=== PATIENT | male | born 1940 | race Caucasian/White ===

== ENCOUNTER 2017-11-25 16:02 | Emergency (ER) | payer OTHER, MEDICARE ==
[2017-11-25] MEDS ORDERED: Morphine 2 MG/ML Syringe IVPUSH ONE (16:23)
--- NOTE | 2017-11-25 16:30 | EDM.PDOC ---
ED HPI GENERAL MEDICAL PROBLEM - General Chief Complaint: Back Pain or Injury Stated Complaint: FELL ON ICE GETTING OUT OF WORK TRUCK Time Seen by Provider: 11/25/17 16:25 Source of Information: Reports: Patient History Limitations: Reports: No Limitations - History of Present Illness INITIAL COMMENTS - FREE TEXT/NARRATIVE: Patient is a 76-year-old male presents ED complaining of left sided back pain that radiates laterally. Patient has been shortness of breath associated since fall. Patient fell on the ice landing straight on his back. He has sensation that something is poking his lung. Cannot take a deep breath. There was no loss of consciousness. He denies any neck pain. He was able to get up on his own accord with minimal difficulties. He is on no anticoagulants. Denies hitting his head. Denies any complaints to his upper lower extremities. Back Pain Score (Numeric/FACES): 8 - Related Data Allergies Allergy/AdvReac Type Severity Reaction Status Date / Time No Known Allergies Allergy Verified 11/25/17 16:10 Home Meds: Home Meds Acetaminophen/HYDROcodone [[place] 325-5 MG] 1 tab PO Q6H PRN #15 tablet 11/25/17 [Rx] Aspirin [Halfprin] 162 mg PO DAILY 11/25/17 [History] Carvedilol 6.25 mg PO BID 11/25/17 [History] Enalapril [Vasotec] 5 mg PO BID 11/25/17 [History] Furosemide 40 mg PO DAILY 11/25/17 [History] Gabapentin [Neurontin] 600 mg PO BID 11/25/17 [History] Lisinopril 10 mg PO DAILY 11/25/17 [History] Lovastatin 40 mg PO DAILY 11/25/17 [History] [place]-3/DHA/Epa/Fish Oil [[place] 3 500 Softgel] 1,000 mg PO DAILY 11/25/17 [ History] Pioglitazone [Actos] 45 mg PO DAILY 11/25/17 [History] glyBURIDE [Glyburide] 5 mg PO BID 11/25/17 [History] metFORMIN [Glucophage XR] 750 mg PO DAILY 11/25/17 [History] Past Medical History Cardiovascular History: Reports: High Cholesterol, Hypertension Endocrine/Metabolic History: Reports: Diabetes, Type II - Past Surgical History Cardiovascular Surgical History: Reports: Carotid Endarterectomy Social & Family History - Tobacco Use Smoking Status *Q: Current Every Day Smoker Years of Tobacco use: 55 Packs/Tins Daily: 1 ED ROS GENERAL - Review of Systems Review Of Systems: ROS reveals no pertinent complaints other than HPI. ED EXAM, GENERAL - Physical Exam Exam: See Below Exam Limited By: No Limitations General Appearance: Alert, WD/WN, Moderate Distress Ears: Hearing Grossly Normal Nose: Normal Inspection Throat/Mouth: Normal Voice, No Airway Compromise Head: Atraumatic, Normocephalic Neck: Normal Inspection, Supple, Non-Tender, Full Range of Motion Respiratory/Chest: No Respiratory Distress, Lungs Clear, Normal Breath Sounds, No Accessory Muscle Use Cardiovascular: Normal Peripheral Pulses, Regular Rate, Rhythm Peripheral Pulses: 2+: Radial (L) Back Exam: Decreased Range of Motion, Other (Mild swelling noted to the left lateral aspect of the upper back along the 6 or 7 seventh rib. ). No: Paraspinal Tenderness, Vertebral Tenderness Extremities: Normal Inspection, Normal Range of Motion, Non-Tender Neurological: Alert, Oriented, CN II-XII Intact, Normal Cognition, No Motor/ Sensory Deficits Psychiatric: Normal Affect, Normal Mood Skin Exam: Warm, Dry, Intact, Normal Color Course - Vital Signs Last Recorded V/S: Last Vital Signs Temp 98.0 F 11/25/17 16:10 Pulse 60 11/25/17 16:10 Resp 20 11/25/17 16:10 BP 174/73 H 11/25/17 16:10 Pulse Ox 90 L 11/25/17 16:10 - Orders/Labs/Meds Meds: Medications Discontinued Medications Generic Name Dose Route Start Last Admin Trade Name Freq PRN Reason Stop Dose Admin Morphine Sulfate 4 mg 11/25/17 16:23 11/25/17 16:29 Morphine IVPUSH 11/25/17 16:24 4 mg ONETIME ONE Administration - Re-Assessments/Exams Free Text/Narrative Re-Assessment/Exam: Order peripheral IV with morphine 2 mg IVP. We'll obtain a CT of the chest without contrast. 11/25/17 17:30 CT of the Chest wo contrast impression; 5mm nodule within the right upper lung. Recommend repeat noncontrast chest CT in one year to confirm stability. Mild diffuse emphysematous change. Possible gallstone within the gallbladder. Nondisplaced fractures within at least the sixth and eighth left ribs. Reassessment, patients pain has improved. Will discharge patient home with instructions as documented. Departure - Departure Time of Disposition: 17:33 Disposition: Home, Self-Care 01 Condition: Good Clinical Impression: Pulmonary nodule, right Left rib fracture Qualifiers: Encounter type: initial encounter Rib fracture type: multiple ribs Fracture type: closed Qualified Code(s): S22.42XA - Multiple fractures of ribs, left side , initial encounter for closed fracture - Discharge Information Prescriptions: Acetaminophen/HYDROcodone [[place] 325-5 MG] 1 tab PO Q6H PRN #15 tablet PRN Reason: Pain (Severe 7-10) Instructions: Pain Medicine Instructions, [id number], Pulmonary Nodule, Easy- to-Read, Rib Fracture, [id number] Referrals: Riky Nelson Jr, MD [Primary Care Provider] - Forms: ED Department Discharge, ED Return to Work/School Form Additional Instructions: CT of the chest revealed 5mm nodule within the right upper lung. Recommend repeat noncontrast chest CT in one year to confirm stability. See pcp to have this completed. In addition you have nondisplaced fractures within at least the sixth and eighth left ribs. Treatment at this point will include symptomatic care including: tylenol and ibuprofen in alternating fashion for pain. Apply ice to the affected area 3 to 4 times daily, 20 minutes in duration , do not apply directly on the skin. In the next two days may alternate with warm compresses with ice application. Refrain from any activities that cause worsening pain. This will take approx. 6 wks to heal. Take norco 1 tab every 6 hours for severe pain. Do not take with tylenol. Followup with PCP this coming week for reevaluation. Return to the E.D. if you develop any new or worsening symptoms. Do not drive today since receiving a sedative medication. Do not drive while taking the norco.
--- NOTE | 2017-11-25 17:24 | CT ---
CT chest Technique: Multiple axial sections were obtained from above the lung apices inferiorly through the lung bases. Intravenous contrast was not utilized. Comparison: No previous study. Findings: Vague high density area is partially visualized on the lowermost cut within the gallbladder possibly due to calcified gallstone. Coronary artery calcification is seen. Atherosclerotic calcification is seen within the aorta and within branch vessels. Nondisplaced fractures are identified within the posterior sixth rib and eighth rib. Mild degenerative change is scattered throughout the spine. Mediastinum and hilar regions show no adenopathy or mass. No axillary adenopathy is seen. No pericardial thickening is seen. Mild emphysematous change is seen throughout the lungs. There is a small nodule identified within the right upper lung measuring 5 mm. Lungs otherwise are clear. Impression: 1. 5 mm nodule within the right upper lung. Recommend repeat noncontrast chest CT in one year to confirm stability. 2. Mild diffuse emphysematous change. 3. Possible gallstone within the gallbladder. 4. Nondisplaced fractures within at least the sixth and eighth left ribs. Diagnostic code #3
== END 2017-11-25 18:03 | disposition home or self-care (01) ==
LOC: JD.ED 16:02
DX: S22.42XA Multiple fractures of ribs, left side, initial encounter for closed fracture (principal); R91.1 Solitary pulmonary nodule; E78.00 Pure hypercholesterolemia, unspecified; I10 Essential (primary) hypertension; E11.9 Type 2 diabetes mellitus without complications; F17.210 Nicotine dependence, cigarettes, uncomplicated; Z79.82 Long term (current) use of aspirin; Z79.899 Other long term (current) drug therapy; W00.9XXA Unspecified fall due to ice and snow, initial encounter
CPT/HCPCS: 71250; 96374; 99284; J2270

== ENCOUNTER 2020-10-24 17:56 | Inpatient (IN) | payer MEDICARE, OTHER ==
[2020-10-24] MEDS ORDERED: Sodium Chloride 0.9% 10 ML Syringe FLUSH PRN (18:38)
--- NOTE | 2020-10-24 18:59 | EDM.PDOC ---
ED HPI GENERAL MEDICAL PROBLEM - General Chief Complaint: Respiratory Problem Stated Complaint: SOB Time Seen by Provider: 10/24/20 18:45 Source of Information: Reports: Patient, RN Notes Reviewed History Limitations: Reports: No Limitations - History of Present Illness INITIAL COMMENTS - FREE TEXT/NARRATIVE: Patient is a 79-year-old male who presents to the ED for the evaluation of his shortness of breath. Patient notes that his is COVID-19 positive, she was swabbed on Wednesday and was found to be positive yesterday. They both have been sick for the last 6 to 7 days. He is complaining of cough congestion, no appetite, fatigue, extreme shortness of breath with any sort of activity. Patient was a previous smoker, has been smoking for 50 years, roughly 1.5 packs/day. He recently quit 6 days ago, or shortly before he started feeling ill. Patient's primary care provider is Dr. Riky Nelson. Patient's O2 sats at time of triage were 85 to 86% on room air, he has a rather dusky appearance. Temperature is 99.4 F, respiratory rate of 32 breaths/min, blood pressure is 162/78, and his pulse is 78 bpm Generalized Pain Score (Numeric/FACES): 9 - Related Data Allergies Allergy/AdvReac Type Severity Reaction Status Date / Time No Known Allergies Allergy Verified 11/25/17 16:10 Home Meds: Home Meds Acetaminophen/HYDROcodone [[place] 325-5 MG] 1 tab PO Q6H PRN #15 tablet 11/25/17 [Rx] Aspirin [Halfprin] 162 mg PO DAILY 11/25/17 [History] Enalapril [Vasotec] 5 mg PO BID 11/25/17 [History] Furosemide 40 mg PO DAILY 11/25/17 [History] Gabapentin [Neurontin] 600 mg PO BID 11/25/17 [History] Lisinopril 10 mg PO DAILY 11/25/17 [History] Lovastatin 40 mg PO DAILY 11/25/17 [History] [place]-3/DHA/Epa/Fish Oil [[place] 3 500 Softgel] 1,000 mg PO DAILY 11/25/17 [History] Pioglitazone [Actos] 45 mg PO DAILY 11/25/17 [History] carvediloL [Carvedilol] 6.25 mg PO BID 11/25/17 [History] glyBURIDE [Glyburide] 5 mg PO BID 11/25/17 [History] metFORMIN [Glucophage XR] 750 mg PO DAILY 11/25/17 [History] Acetaminophen/HYDROcodone [[place] 325-5 MG] 1 tab PO Q4H PRN #20 tablet 05/08/18 [Rx] Past Medical History Cardiovascular History: Reports: High Cholesterol, Hypertension Musculoskeletal History: Reports: Arthritis Neurological History: Reports: None Endocrine/Metabolic History: Reports: Diabetes, Type II Other Endocrine/Metabolic History: on pills - Past Surgical History Cardiovascular Surgical History: Reports: Carotid Endarterectomy Social & Family History - Tobacco Use Tobacco Use Status *Q: Former Tobacco User Used Tobacco, but Quit: Yes Month/Year Tobacco Last Used: 6 days ago - Caffeine Use Caffeine Use: Reports: Coffee - Recreational Drug Use Recreational Drug Use: No ED ROS GENERAL - Review of Systems Review Of Systems: Comprehensive ROS is negative, except as noted in HPI. ED EXAM, GENERAL - Physical Exam Exam: See Below Exam Limited By: No Limitations General Appearance: Alert, WD/WN, Mild Distress (tachypneic and generalized dusky appearance.) Respiratory/Chest: No Respiratory Distress, Lungs Clear, Normal Breath Sounds, No Accessory Muscle Use, Chest Non-Tender Cardiovascular: Normal Peripheral Pulses, Regular Rate, Rhythm, No Edema Peripheral Pulses: 2+: Radial (L), Radial (R) GI/Abdominal: Normal Bowel Sounds, Soft, Non-Tender, No Distention, No Mass Extremities: Normal Inspection, Normal Capillary Refill Neurological: Alert, Oriented, Normal Cognition, No Motor/Sensory Deficits Psychiatric: Normal Affect, Normal Mood Skin Exam: Warm, Dry, Intact, No Rash, Cyanosis (Generalized dusky appearance) #1 Interpretation EKG Date: 10/24/20 Time: 18:32 Rhythm: NSR Rate (Beats/Min): 77 Jena: LAD-Left Jena Deviation (-98 ) P-Wave: Present QRS: RBBB ST-T: Normal QT: Prolonged (Moderately at 486) Comparison: NA - No Prior EKG EKG Interpretation Comments: No obvious ischemia or acute ST changes noted, reviewed by myself and Dr. Galvan. Course - Vital Signs Last Recorded V/S: Last Vital Signs Temp 99.4 F 10/24/20 18:25 Pulse 78 10/24/20 18:25 Resp 32 H 10/24/20 18:25 BP 162/78 H 10/24/20 18:25 Pulse Ox 86 L 10/24/20 18:25 - Orders/Labs/Meds Orders: Active Orders 24 hr Category Date Time Status EKG Documentation Completion [RC] STAT Care 10/24/20 18:39 Ordered Oxygen Therapy, ED [RC] ASDIRECTED Care 10/24/20 18:58 Ordered Peripheral IV Care [RC] . DIRECTED Care 10/24/20 18:40 Ordered RT Arterial Blood Gases, ABG [RC] Click to Edit Care 10/24/20 18:25 Active Chest 1V Frontal [CR] Stat Exams 10/24/20 18:38 Ordered CULTURE BLOOD [BC] Stat Lab 10/24/20 18:55 Ordered CULTURE BLOOD [BC] Stat Lab 10/24/20 18:55 Ordered Sodium Chloride 0.9% [Saline Flush] Med 10/24/20 18:38 Ordered 10 ml FLUSH ASDIRECTED PRN Blood Culture x2 Reflex Set [OM.PC] Stat Oth 10/24/20 18:55 Ordered Peripheral IV Insertion Adult [OM.PC] Routine Oth 10/24/20 18:38 Ordered Medication Orders Sodium Chloride (Saline Flush) 10 ml FLUSH ASDIRECTED PRN PRN Reason: Keep Vein Open Last Admin: 10/24/20 18:42 Dose: 10 ml Documented by: JADE Labs: Laboratory Tests 10/24/20 10/24/20 10/24/20 Range/Units 18:35 18:35 18:35 WBC 7.11 (4.23-9.07) K/mm3 RBC 5.36 (4.63-6.08) M/mm3 Hgb 16.7 (13.7-17.5) gm/dl Hct 48.9 (40.1-51.0) % MCV 91.2 (79.0-92.2) fl MCH 31.2 (25.7-32.2) pg MCHC 34.2 (32.2-35.5) g/dl RDW Std Deviation 50.1 H (35.1-43.9) fL Plt Count 120 L (163-337) K/mm3 MPV 10.4 (9.4-12.3) fl Neutrophils % (Manual) 62 H (40-60) % Band Neutrophils % 2 (0-10) % Lymphocytes % (Manual) 22 (20-40) % Atypical Lymphs % 0 % Monocytes % (Manual) 14 H (2-10) % Eosinophils % (Manual) 0 L (0.8-7.0) % Basophils % (Manual) 0 L (0.2-1.2) Platelet Estimate Decreased RBC Morph Comment Normal PT 10.6 (9.7-12.0) SECONDS INR 0.99 APTT 32.1 H (21.7-31.4) SECONDS D-Dimer, Quantitative 0.78 H (0.19-0.50) mg/L Puncture Site ABG pH (7.35-7.45) ABG pCO2 (35.0-45.0) mmHg ABG pO2 (80.0-100.0) mmHg ABG HCO3 (22.0-26.0) meq/L ABG O2 Saturation (96.0-97.0) % ABG Base Excess (-2-2.0) Simon Test O2 Delivery Device FiO2 (21.00-100.00) % Sodium (136-145) mEq/L Potassium (3.5-5.1) mEq/L Chloride (98-107) mEq/L Carbon Dioxide (21-32) mEq/L Anion Gap (5-15) BUN (7-18) mg/dL Creatinine (0.7-1.3) mg/dL Est Cr Clr Drug Dosing mL/min Estimated GFR (MDRD) (>60) mL/min BUN/Creatinine Ratio (14-18) Glucose (83-115) mg/dL Lactic Acid (0.4-2.0) mmol/L Calcium (8.5-10.1) mg/dL Magnesium (1.8-2.4) mg/dl Ferritin (26-388) ng/ml Total Bilirubin (0.2-1.0) mg/dL AST (15-37) U/L ALT (16-63) U/L Alkaline Phosphatase (46-116) U/L Lactate Dehydrogenase (85-227) U/L Troponin I (0.00-0.056) ng/mL C-Reactive Protein 5.8 H* (<1.0) mg/dL NT-Pro-B Natriuret Pep (0-450) pg/mL Total Protein (6.4-8.2) g/dl Albumin (3.4-5.0) g/dl Globulin gm/dL Albumin/Globulin Ratio (1-2) Influenza Type A RNA (NEGATIVE) Influenza Type B RNA (NEGATIVE) SARS-CoV-2 RNA (RADHA) (NEGATIVE) 10/24/20 10/24/20 10/24/20 Range/Units 18:35 18:35 18:35 WBC (4.23-9.07) K/mm3 RBC (4.63-6.08) M/mm3 Hgb (13.7-17.5) gm/dl Hct (40.1-51.0) % MCV (79.0-92.2) fl MCH (25.7-32.2) pg MCHC (32.2-35.5) g/dl RDW Std Deviation (35.1-43.9) fL Plt Count (163-337) K/mm3 MPV (9.4-12.3) fl Neutrophils % (Manual) (40-60) % Band Neutrophils % (0-10) % Lymphocytes % (Manual) (20-40) % Atypical Lymphs % % Monocytes % (Manual) (2-10) % Eosinophils % (Manual) (0.8-7.0) % Basophils % (Manual) (0.2-1.2) Platelet Estimate RBC Morph Comment PT (9.7-12.0) SECONDS INR APTT (21.7-31.4) SECONDS D-Dimer, Quantitative (0.19-0.50) mg/L Puncture Site ABG pH (7.35-7.45) ABG pCO2 (35.0-45.0) mmHg ABG pO2 (80.0-100.0) mmHg ABG HCO3 (22.0-26.0) meq/L ABG O2 Saturation (96.0-97.0) % ABG Base Excess (-2-2.0) Simon Test O2 Delivery Device FiO2 (21.00-100.00) % Sodium 132 L (136-145) mEq/L Potassium 4.3 (3.5-5.1) mEq/L Chloride 94 L (98-107) mEq/L Carbon Dioxide 28 (21-32) mEq/L Anion Gap 14.3 (5-15) BUN 28 H (7-18) mg/dL Creatinine 1.2 (0.7-1.3) mg/dL Est Cr Clr Drug Dosing 51.55 mL/min Estimated GFR (MDRD) 59 (>60) mL/min BUN/Creatinine Ratio 23.3 H (14-18) Glucose 188 H (83-115) mg/dL Lactic Acid (0.4-2.0) mmol/L Calcium 8.7 (8.5-10.1) mg/dL Magnesium 2.0 (1.8-2.4) mg/dl Ferritin 1447 H (26-388) ng/ml Total Bilirubin 0.9 (0.2-1.0) mg/dL AST 37 (15-37) U/L ALT 56 (16-63) U/L Alkaline Phosphatase 78 (46-116) U/L Lactate Dehydrogenase 289 H (85-227) U/L Troponin I 0.028 (0.00-0.056) ng/mL C-Reactive Protein (<1.0) mg/dL NT-Pro-B Natriuret Pep 623 H (0-450) pg/mL Total Protein 7.3 (6.4-8.2) g/dl Albumin 3.3 L (3.4-5.0) g/dl Globulin 4.0 gm/dL Albumin/Globulin Ratio 0.8 L (1-2) Influenza Type A RNA (NEGATIVE) Influenza Type B RNA (NEGATIVE) SARS-CoV-2 RNA (RADHA) (NEGATIVE) 10/24/20 10/24/20 10/24/20 Range/Units 18:35 18:40 18:45 WBC (4.23-9.07) K/mm3 RBC (4.63-6.08) M/mm3 Hgb (13.7-17.5) gm/dl Hct (40.1-51.0) % MCV (79.0-92.2) fl MCH (25.7-32.2) pg MCHC (32.2-35.5) g/dl RDW Std Deviation (35.1-43.9) fL Plt Count (163-337) K/mm3 MPV (9.4-12.3) fl Neutrophils % (Manual) (40-60) % Band Neutrophils % (0-10) % Lymphocytes % (Manual) (20-40) % Atypical Lymphs % % Monocytes % (Manual) (2-10) % Eosinophils % (Manual) (0.8-7.0) % Basophils % (Manual) (0.2-1.2) Platelet Estimate RBC Morph Comment PT (9.7-12.0) SECONDS INR APTT (21.7-31.4) SECONDS D-Dimer, Quantitative (0.19-0.50) mg/L Puncture Site Rt radial ABG pH 7.44 (7.35-7.45) ABG pCO2 38.2 (35.0-45.0) mmHg ABG pO2 46.0 L (80.0-100.0) mmHg ABG HCO3 25.6 (22.0-26.0) meq/L ABG O2 Saturation 83.1 L (96.0-97.0) % ABG Base Excess 2.1 H (-2-2.0) Simon Test Positive O2 Delivery Device Room air FiO2 0.00 L (21.00-100.00) % Sodium (136-145) mEq/L Potassium (3.5-5.1) mEq/L Chloride (98-107) mEq/L Carbon Dioxide (21-32) mEq/L Anion Gap (5-15) BUN (7-18) mg/dL Creatinine (0.7-1.3) mg/dL Est Cr Clr Drug Dosing mL/min Estimated GFR (MDRD) (>60) mL/min BUN/Creatinine Ratio (14-18) Glucose (83-115) mg/dL Lactic Acid 1.5 (0.4-2.0) mmol/L Calcium (8.5-10.1) mg/dL Magnesium (1.8-2.4) mg/dl Ferritin (26-388) ng/ml Total Bilirubin (0.2-1.0) mg/dL AST (15-37) U/L ALT (16-63) U/L Alkaline Phosphatase (46-116) U/L Lactate Dehydrogenase (85-227) U/L Troponin I (0.00-0.056) ng/mL C-Reactive Protein (<1.0) mg/dL NT-Pro-B Natriuret Pep (0-450) pg/mL Total Protein (6.4-8.2) g/dl Albumin (3.4-5.0) g/dl Globulin gm/dL Albumin/Globulin Ratio (1-2) Influenza Type A RNA Negative (NEGATIVE) Influenza Type B RNA Negative (NEGATIVE) SARS-CoV-2 RNA (RADHA) Positive H (NEGATIVE) Meds: Medications Generic Name Dose Route Start Last Admin Trade Name Frejacqueline PRN Reason Stop Dose Admin Sodium Chloride 10 ml 10/24/20 18:38 10/24/20 18:42 Saline Flush FLUSH 10 ml ASDIRECTED PRN Administration Keep Vein Open Discontinued Medications Generic Name Dose Route Start Last Admin Trade Name Ann Marie PRN Reason Stop Dose Admin Dexamethasone 6 mg 10/24/20 19:44 10/24/20 20:11 Decadron IVPUSH 10/24/20 19:45 6 mg ONETIME ONE Administration Remdesivir 200 mg/ Sodium 250 mls @ 250 mls/hr 10/24/20 19:44 10/24/20 20:13 Chloride IV 10/24/20 19:45 250 mls/hr ONETIME ONE Administration - Re-Assessments/Exams Free Text/Narrative Re-Assessment/Exam: 10/24/20 18:57 Patient presents to the ED for the evaluation of his ongoing shortness of breath. I do highly suspect he has COVID-19, as his was just recently diagnosed and he has many symptoms of this. We will get a multitude of labs, get blood gases, patient will be placed on oxygen after blood gases have been obtained. 10/24/20 20:21 The patient's PO2 was 45 on room air, 2 L by nasal cannula was placed immediately after the ABG was taken. Clinical suspicion again was high that patient did have COVID-19 and his swab did come back positive. Labs are all elevated as such to reflect positive Covid status. I was able to talk with Dr. Grier, and he does ultimately accept, and does recommend IV remdesivir and dexamethasone to be started. Departure - Departure Time of Disposition: 20:22 Disposition: Admitted As Inpatient 68 Condition: Fair Clinical Impression: COVID-19 - Discharge Information *PRESCRIPTION DRUG MONITORING PROGRAM REVIEWED*: No *COPY OF PRESCRIPTION DRUG MONITORING REPORT IN PATIENT BLANCA: No Referrals: Riky Nelson Jr, MD [Primary Care Provider] - Forms: ED Department Discharge Sepsis Event Note (ED) - Evaluation Sepsis Screening Result: No Definite Risk - Focused Exam Vital Signs: Vital Signs Temp Pulse Resp BP Pulse Ox 10/24/20 18:25 99.4 F 78 32 H 162/78 H 86 L - My Orders Last 24 Hours: My Active Orders 10/24/20 18:25 RT Arterial Blood Gases, ABG [RC] Click to Edit 10/24/20 18:38 Chest 1V Frontal [CR] Stat Sodium Chloride 0.9% [Saline Flush] 10 ml FLUSH ASDIRECTED PRN Peripheral IV Insertion Adult [OM.PC] Routine 10/24/20 18:39 EKG Documentation Completion [RC] STAT 10/24/20 18:40 Peripheral IV Care [RC] . DIRECTED 10/24/20 18:55 CULTURE BLOOD [BC] Stat CULTURE BLOOD [BC] Stat Blood Culture x2 Reflex Set [OM.PC] Stat 10/24/20 18:58 Oxygen Therapy, ED [RC] ASDIRECTED - Assessment/Plan Last 24 Hours: My Active Orders 10/24/20 18:25 RT Arterial Blood Gases, ABG [RC] Click to Edit 10/24/20 18:38 Chest 1V Frontal [CR] Stat Sodium Chloride 0.9% [Saline Flush] 10 ml FLUSH ASDIRECTED PRN Peripheral IV Insertion Adult [OM.PC] Routine 10/24/20 18:39 EKG Documentation Completion [RC] STAT 10/24/20 18:40 Peripheral IV Care [RC] . DIRECTED 10/24/20 18:55 CULTURE BLOOD [BC] Stat CULTURE BLOOD [BC] Stat Blood Culture x2 Reflex Set [OM.PC] Stat 10/24/20 18:58 Oxygen Therapy, ED [RC] ASDIRECTED
[2020-10-24] MEDS ORDERED: Dexamethasone 10 MG/ML SDV IVPUSH ONE (19:44)
[2020-10-24] MEDS ORDERED: REMDESIVIR 200 MG in Sodium Chloride 0.9% 250 ML IV ONE (19:44)
[2020-10-24 19:45] LABS: CORONAVIRUS COVID-19 NAA POSITIVE (NEGATIVE)
[2020-10-24] MEDS ORDERED: FLU Vacc QV2020-21(65YR UP)/PF 240 MCG/0.7 ML Syringe IM ONE (23:30)
[2020-10-24] MEDS ORDERED: Acetaminophen 325 MG Tab PO PRN (23:37)
[2020-10-24] MEDS ORDERED: Ondansetron 4 MG/2 ML SDV IV PRN (23:37)
[2020-10-24] MEDS ORDERED: oxyCODONE 5 MG Tab PO PRN (23:37)
[2020-10-25 06:40] LABS: VITAMIN D,25-HYDROXY 74.4 ng/ml (30.0-100.0)
--- NOTE | 2020-10-25 08:30 | PCM.HP.2 ---
H&P History of Present Illness - General Date of Service: 10/25/20 Admit Problem/Dx: Admission Diagnosis/Problem Admission Diagnosis/Problem Hypoxia Source of Information: Patient, Old Records, Provider, RN, RN Notes Reviewed History Limitations: Reports: No Limitations - History of Present Illness Initial Comments - Free Text/Narative: This is a 79-year-old male who presents to our ED on the evening of 10/24/2020 with shortness of breath. Patient notes that his was diagnosed as Covid positive on 10/23/2020, having been tested on 10/21/2020. Reports symptoms have been ongoing for 6 to 7 days and these include cough, congestion, anorexia, fatigue, extreme dyspnea on exertion. He is a 50 years 1.5 pack/day smoker and reports he quit 6 days prior to being seen in the emergency department before becoming ill. O2 sats during triage were noted to be 85 to 8 0% on room air and he looked somewhat dusky. Temperature was 99.4. Respiratory rate of 32 breaths/min blood pressure is 162/78 and pulse was 78 bpm. In the ED twelve-lead EKG was obtained showing a sinus rhythm at 77 bpm with left axis deviation and a right bundle branch block. QT was moderately prolonged at 486. No acute ST changes or ischemia noted. Labs are obtained showing no leukocytosis with a WBC of 7.11. Hemoglobin 16.4. Hematocrit 40.9. Platelets low at 120. Neutrophils elevated 62%. There is 2% bandemia. INR 0.99. APTT is 32.1. D-dimer is 0.78. CRP is 5.8. Sodium is low at 132. Potassium 4.3. Chloride 94. Carbon dioxide 28. Anion gap 14.3. BUN is high at 28. Creatinine 1.2. GFR is 59. Glucose is high at 188. Calcium 8.7. Magnesium 2.0. Ferritin is high at 1447. Total bilirubin 0.9. AST is 37, ALT 56, alkaline phosphatase 78. LDH is 289. Troponin 0 0.028. proBNP is 623. Protein 7.3. Albumin 3.3. Lactic acid is 1.5. ABGs obtained in the right radial with a pH of 7.44. PCO2 38.2. PO2 of 46.0. HCO3 of 25.6. O2 saturations are 83.1. Base excess is 2.1. This is obtained while on room air. Influenza a and B are both negative however SARS-CoV-2 RNA is positive. Patient is given a 6 mg IV push of Decadron and 20 mg of remdesivir. Chest x-ray is obtained showing a healing left-sided rib fracture and nothing acute. Placed on 2 L of oxygen. He carries a history of HLD, hypertension, arthritis, type II DM, carotid endarterectomy and tobacco use having quit 6 days prior. His PCP is Dr. Nelson. He subsequently admitted to the medical floor on telemetry for management of his COVID-19 infection and hyponatremia. Generalized Pain Score (Numeric/FACES): 0 - Related Data Allergies/Adverse Reactions: Allergies Allergy/AdvReac Type Severity Reaction Status Date / Time No Known Allergies Allergy Verified 11/25/17 16:10 Home Medications: Home Meds Enalapril [Vasotec] 5 mg PO DAILY 11/25/17 [History] Furosemide 40 mg PO DAILY 11/25/17 [History] Gabapentin [Neurontin] 600 mg PO BID 11/25/17 [History] Lovastatin 40 mg PO DAILY 11/25/17 [History] Pioglitazone [Actos] 45 mg PO DAILY 11/25/17 [History] carvediloL [Carvedilol] 6.25 mg PO BID 11/25/17 [History] glyBURIDE [Glyburide] 5 mg PO BID 11/25/17 [History] metFORMIN [Glucophage XR] 750 mg PO DAILY 11/25/17 [History] Acetaminophen/HYDROcodone [[place] 325-5 MG] 1 tab PO Q4H PRN #20 tablet 05/08/18 [Rx] Albuterol Sulfate [Proventil Hfa] 2 puff INH Q4HR PRN 10/25/20 [History] Albuterol/Ipratropium [Combivent Respimat] 1 puff INH QID 10/25/20 [History] Aspirin [Aspirin EC] 162 mg PO DAILY 10/25/20 [History] Oxybutynin 5 mg PO BID 10/25/20 [History] predniSONE 10 mg PO DAILY 10/25/20 [History] Past Medical History HEENT History: Reports: Impaired Vision, Other (See Below) Other HEENT History: pt wears reading glasses and wears a full set of dentures but does not have either of them here with him. Cardiovascular History: Reports: High Cholesterol, Hypertension Respiratory History: Reports: Other (See Below) Other Respiratory History: denies wearing oxygen at home or a cpap at night when asked. pt recently quit smokimg one week ago. Said he has a nebulizer machine at home but has not used in a long time. Genitourinary History: Reports: None Musculoskeletal History: Reports: Arthritis Neurological History: Reports: None Endocrine/Metabolic History: Reports: Diabetes, Type II Other Endocrine/Metabolic History: on oral medication and does not check his blood sugar at home, states he does not have a glucose monitor at home Do You Give Correction Boluses or Sliding Scale: No - Infectious Disease History Infectious Disease History: Reports: Novel Coronavirus - Past Surgical History HEENT Surgical History: Reports: None Cardiovascular Surgical History: Reports: Carotid Endarterectomy Respiratory Surgical History: Reports: None GI Surgical History: Reports: None Male Surgical History: Reports: Vasectomy Endocrine Surgical History: Reports: None Musculoskeletal Surgical History: Reports: None Social & Family History - Family History Family Medical History: No Pertinent Family History - Tobacco Use Tobacco Use Status *Q: Former Tobacco User Packs/Tins Daily: 1 Used Tobacco, but Quit: Yes Month/Year Tobacco Last Used: 10/17/20 Second Hand Smoke Exposure: No - Caffeine Use Caffeine Use: Reports: Coffee Other Caffeine Use: 2 cups per day - Recreational Drug Use Recreational Drug Use: No H&P Review of Systems - Review of Systems: Review Of Systems: See Below General: Reports: No Symptoms, Chills, Malaise, Weakness, Fatigue, Decreased Appetite. Denies: Fever HEENT: Reports: Sinus Congestion. Denies: Headaches, Sore Throat Pulmonary: Reports: Shortness of Breath, Cough. Denies: Wheezing, Sputum Cardiovascular: Reports: No Symptoms, Dyspnea on Exertion. Denies: Chest Pain, Palpitations, Orthopnea, Edema Gastrointestinal: Reports: No Symptoms. Denies: Abdominal Pain, Constipation, Diarrhea, Nausea, Vomiting Genitourinary: Reports: No Symptoms. Denies: Pain Musculoskeletal: Reports: No Symptoms Skin: Reports: No Symptoms Psychiatric: Reports: No Symptoms. Denies: Confusion Neurological: Reports: Weakness. Denies: Confusion, Numbness, Pre-Existing Deficit, Tingling, Difficulty Walking, Gait Disturbance Hematologic/Lymphatic: Reports: No Symptoms Immunologic: Reports: No Symptoms Exam - Exam Exam: See Below - Vital Signs Vital Signs: Last Vital Signs Temp 98.4 F 10/25/20 07:46 Pulse 54 L 10/25/20 07:46 Resp 16 10/25/20 07:46 BP 123/51 L 10/25/20 07:46 Pulse Ox 91 L 10/25/20 07:46 Weight: 170 lb - Exam Quality Assessment: Supplemental Oxygen (5L), DVT Prophylaxis. No: Urinary Catheter General: Alert, Oriented, Cooperative. No: Mild Distress HEENT: Conjunctiva Clear, EACs Clear, Mucosa Moist & [place], Posterior Pharynx Clear Neck: Supple, Trachea Midline Lungs: Clear to Auscultation, Normal Respiratory Effort, Decreased Breath Sounds Cardiovascular: Regular Rate, Regular Rhythm GI/Abdominal Exam: Normal Bowel Sounds, Soft, Non-Tender, No Distention (Male) Exam: Deferred Rectal (Males) Exam: Deferred Back Exam: Normal Inspection, Full Range of Motion Extremities: Normal Inspection, Normal Range of Motion, Non-Tender, No Pedal Edema, Normal Capillary Refill Skin: Warm, Dry, Intact Neurological: Cranial Nerves Intact (Grossly ) Neuro Extensive - Mental Status: Alert, Oriented x3 - Patient Data Lab Results Last 24 hrs: Laboratory Results - last 24 hr 10/24/20 10/24/20 10/24/20 Range/Units 18:35 18:35 18:35 WBC 7.11 (4.23-9.07) K/mm3 RBC 5.36 (4.63-6.08) M/mm3 Hgb 16.7 (13.7-17.5) gm/dl Hct 48.9 (40.1-51.0) % MCV 91.2 (79.0-92.2) fl MCH 31.2 (25.7-32.2) pg MCHC 34.2 (32.2-35.5) g/dl RDW Std Deviation 50.1 H (35.1-43.9) fL Plt Count 120 L (163-337) K/mm3 MPV 10.4 (9.4-12.3) fl Neut % (Auto) (34.0-67.9) % Lymph % (Auto) (21.8-53.1) % [place] % (Auto) (5.3-12.2) % Eos % (Auto) (0.8-7.0) Baso % (Auto) (0.1-1.2) % Neut # (Auto) (1.78-5.38) K/mm3 Lymph # (Auto) (1.32-3.57) K/mm3 [place] # (Auto) (0.30-0.82) K/mm3 Eos # (Auto) (0.04-0.54) K/mm3 Baso # (Auto) (0.01-0.08) K/mm3 Neutrophils % (Manual) 62 H (40-60) % Band Neutrophils % 2 (0-10) % Lymphocytes % (Manual) 22 (20-40) % Atypical Lymphs % 0 % Monocytes % (Manual) 14 H (2-10) % Eosinophils % (Manual) 0 L (0.8-7.0) % Basophils % (Manual) 0 L (0.2-1.2) Platelet Estimate Decreased RBC Morph Comment Normal PT 10.6 (9.7-12.0) SECONDS INR 0.99 APTT 32.1 H (21.7-31.4) SECONDS D-Dimer, Quantitative 0.78 H (0.19-0.50) mg/L Puncture Site ABG pH (7.35-7.45) ABG pCO2 (35.0-45.0) mmHg ABG pO2 (80.0-100.0) mmHg ABG HCO3 (22.0-26.0) meq/L ABG O2 Saturation (96.0-97.0) % ABG Base Excess (-2-2.0) Simon Test O2 Delivery Device FiO2 (21.00-100.00) % Sodium (136-145) mEq/L Potassium (3.5-5.1) mEq/L Chloride (98-107) mEq/L Carbon Dioxide (21-32) mEq/L Anion Gap (5-15) BUN (7-18) mg/dL Creatinine (0.7-1.3) mg/dL Est Cr Clr Drug Dosing mL/min Estimated GFR (MDRD) (>60) mL/min BUN/Creatinine Ratio (14-18) Glucose (83-115) mg/dL POC Glucose (83-110) mg/dL Lactic Acid (0.4-2.0) mmol/L Calcium (8.5-10.1) mg/dL Phosphorus (2.6-4.7) mg/dL Magnesium (1.8-2.4) mg/dl Ferritin (26-388) ng/ml Total Bilirubin (0.2-1.0) mg/dL AST (15-37) U/L ALT (16-63) U/L Alkaline Phosphatase (46-116) U/L Lactate Dehydrogenase (85-227) U/L Troponin I (0.00-0.056) ng/mL C-Reactive Protein 5.8 H* (<1.0) mg/dL NT-Pro-B Natriuret Pep (0-450) pg/mL Total Protein (6.4-8.2) g/dl Albumin (3.4-5.0) g/dl Globulin gm/dL Albumin/Globulin Ratio (1-2) Vitamin D 25-Hydroxy (30.0-100.0) ng/ml Influenza Type A RNA (NEGATIVE) Influenza Type B RNA (NEGATIVE) SARS-CoV-2 RNA (RADHA) (NEGATIVE) 10/24/20 10/24/20 10/24/20 Range/Units 18:35 18:35 18:35 WBC (4.23-9.07) K/mm3 RBC (4.63-6.08) M/mm3 Hgb (13.7-17.5) gm/dl Hct (40.1-51.0) % MCV (79.0-92.2) fl MCH (25.7-32.2) pg MCHC (32.2-35.5) g/dl RDW Std Deviation (35.1-43.9) fL Plt Count (163-337) K/mm3 MPV (9.4-12.3) fl Neut % (Auto) (34.0-67.9) % Lymph % (Auto) (21.8-53.1) % [place] % (Auto) (5.3-12.2) % Eos % (Auto) (0.8-7.0) Baso % (Auto) (0.1-1.2) % Neut # (Auto) (1.78-5.38) K/mm3 Lymph # (Auto) (1.32-3.57) K/mm3 [place] # (Auto) (0.30-0.82) K/mm3 Eos # (Auto) (0.04-0.54) K/mm3 Baso # (Auto) (0.01-0.08) K/mm3 Neutrophils % (Manual) (40-60) % Band Neutrophils % (0-10) % Lymphocytes % (Manual) (20-40) % Atypical Lymphs % % Monocytes % (Manual) (2-10) % Eosinophils % (Manual) (0.8-7.0) % Basophils % (Manual) (0.2-1.2) Platelet Estimate RBC Morph Comment PT (9.7-12.0) SECONDS INR APTT (21.7-31.4) SECONDS D-Dimer, Quantitative (0.19-0.50) mg/L Puncture Site ABG pH (7.35-7.45) ABG pCO2 (35.0-45.0) mmHg ABG pO2 (80.0-100.0) mmHg ABG HCO3 (22.0-26.0) meq/L ABG O2 Saturation (96.0-97.0) % ABG Base Excess (-2-2.0) Simon Test O2 Delivery Device FiO2 (21.00-100.00) % Sodium 132 L (136-145) mEq/L Potassium 4.3 (3.5-5.1) mEq/L Chloride 94 L (98-107) mEq/L Carbon Dioxide 28 (21-32) mEq/L Anion Gap 14.3 (5-15) BUN 28 H (7-18) mg/dL Creatinine 1.2 (0.7-1.3) mg/dL Est Cr Clr Drug Dosing 51.55 mL/min Estimated GFR (MDRD) 59 (>60) mL/min BUN/Creatinine Ratio 23.3 H (14-18) Glucose 188 H (83-115) mg/dL POC Glucose (83-110) mg/dL Lactic Acid (0.4-2.0) mmol/L Calcium 8.7 (8.5-10.1) mg/dL Phosphorus (2.6-4.7) mg/dL Magnesium 2.0 (1.8-2.4) mg/dl Ferritin 1447 H (26-388) ng/ml Total Bilirubin 0.9 (0.2-1.0) mg/dL AST 37 (15-37) U/L ALT 56 (16-63) U/L Alkaline Phosphatase 78 (46-116) U/L Lactate Dehydrogenase 289 H (85-227) U/L Troponin I 0.028 (0.00-0.056) ng/mL C-Reactive Protein (<1.0) mg/dL NT-Pro-B Natriuret Pep 623 H (0-450) pg/mL Total Protein 7.3 (6.4-8.2) g/dl Albumin 3.3 L (3.4-5.0) g/dl Globulin 4.0 gm/dL Albumin/Globulin Ratio 0.8 L (1-2) Vitamin D 25-Hydroxy (30.0-100.0) ng/ml Influenza Type A RNA (NEGATIVE) Influenza Type B RNA (NEGATIVE) SARS-CoV-2 RNA (RADHA) (NEGATIVE) 10/24/20 10/24/20 10/24/20 Range/Units 18:35 18:40 18:45 WBC (4.23-9.07) K/mm3 RBC (4.63-6.08) M/mm3 Hgb (13.7-17.5) gm/dl Hct (40.1-51.0) % MCV (79.0-92.2) fl MCH (25.7-32.2) pg MCHC (32.2-35.5) g/dl RDW Std Deviation (35.1-43.9) fL Plt Count (163-337) K/mm3 MPV (9.4-12.3) fl Neut % (Auto) (34.0-67.9) % Lymph % (Auto) (21.8-53.1) % [place] % (Auto) (5.3-12.2) % Eos % (Auto) (0.8-7.0) Baso % (Auto) (0.1-1.2) % Neut # (Auto) (1.78-5.38) K/mm3 Lymph # (Auto) (1.32-3.57) K/mm3 [place] # (Auto) (0.30-0.82) K/mm3 Eos # (Auto) (0.04-0.54) K/mm3 Baso # (Auto) (0.01-0.08) K/mm3 Neutrophils % (Manual) (40-60) % Band Neutrophils % (0-10) % Lymphocytes % (Manual) (20-40) % Atypical Lymphs % % Monocytes % (Manual) (2-10) % Eosinophils % (Manual) (0.8-7.0) % Basophils % (Manual) (0.2-1.2) Platelet Estimate RBC Morph Comment PT (9.7-12.0) SECONDS INR APTT (21.7-31.4) SECONDS D-Dimer, Quantitative (0.19-0.50) mg/L Puncture Site Rt radial ABG pH 7.44 (7.35-7.45) ABG pCO2 38.2 (35.0-45.0) mmHg ABG pO2 46.0 L (80.0-100.0) mmHg ABG HCO3 25.6 (22.0-26.0) meq/L ABG O2 Saturation 83.1 L (96.0-97.0) % ABG Base Excess 2.1 H (-2-2.0) Simon Test Positive O2 Delivery Device Room air FiO2 0.00 L (21.00-100.00) % Sodium (136-145) mEq/L Potassium (3.5-5.1) mEq/L Chloride (98-107) mEq/L Carbon Dioxide (21-32) mEq/L Anion Gap (5-15) BUN (7-18) mg/dL Creatinine (0.7-1.3) mg/dL Est Cr Clr Drug Dosing mL/min Estimated GFR (MDRD) (>60) mL/min BUN/Creatinine Ratio (14-18) Glucose (83-115) mg/dL POC Glucose (83-110) mg/dL Lactic Acid 1.5 (0.4-2.0) mmol/L Calcium (8.5-10.1) mg/dL Phosphorus (2.6-4.7) mg/dL Magnesium (1.8-2.4) mg/dl Ferritin (26-388) ng/ml Total Bilirubin (0.2-1.0) mg/dL AST (15-37) U/L ALT (16-63) U/L Alkaline Phosphatase (46-116) U/L Lactate Dehydrogenase (85-227) U/L Troponin I (0.00-0.056) ng/mL C-Reactive Protein (<1.0) mg/dL NT-Pro-B Natriuret Pep (0-450) pg/mL Total Protein (6.4-8.2) g/dl Albumin (3.4-5.0) g/dl Globulin gm/dL Albumin/Globulin Ratio (1-2) Vitamin D 25-Hydroxy (30.0-100.0) ng/ml Influenza Type A RNA Negative (NEGATIVE) Influenza Type B RNA Negative (NEGATIVE) SARS-CoV-2 RNA (RADHA) Positive H (NEGATIVE) 10/24/20 10/25/20 10/25/20 Range/Units 22:43 04:59 04:59 WBC 5.10 (4.23-9.07) K/mm3 RBC 4.85 (4.63-6.08) M/mm3 Hgb 15.1 D (13.7-17.5) gm/dl Hct 44.2 (40.1-51.0) % MCV 91.1 (79.0-92.2) fl MCH 31.1 (25.7-32.2) pg MCHC 34.2 (32.2-35.5) g/dl RDW Std Deviation 49.3 H (35.1-43.9) fL Plt Count 131 L (163-337) K/mm3 MPV 10.8 (9.4-12.3) fl Neut % (Auto) 74.9 H (34.0-67.9) % Lymph % (Auto) 14.3 L (21.8-53.1) % [place] % (Auto) 9.6 (5.3-12.2) % Eos % (Auto) 0.2 L (0.8-7.0) Baso % (Auto) 0.2 (0.1-1.2) % Neut # (Auto) 3.82 (1.78-5.38) K/mm3 Lymph # (Auto) 0.73 L (1.32-3.57) K/mm3 [place] # (Auto) 0.49 (0.30-0.82) K/mm3 Eos # (Auto) 0.01 L (0.04-0.54) K/mm3 Baso # (Auto) 0.01 (0.01-0.08) K/mm3 Neutrophils % (Manual) (40-60) % Band Neutrophils % (0-10) % Lymphocytes % (Manual) (20-40) % Atypical Lymphs % % Monocytes % (Manual) (2-10) % Eosinophils % (Manual) (0.8-7.0) % Basophils % (Manual) (0.2-1.2) Platelet Estimate RBC Morph Comment PT (9.7-12.0) SECONDS INR APTT (21.7-31.4) SECONDS D-Dimer, Quantitative 0.57 H (0.19-0.50) mg/L Puncture Site ABG pH (7.35-7.45) ABG pCO2 (35.0-45.0) mmHg ABG pO2 (80.0-100.0) mmHg ABG HCO3 (22.0-26.0) meq/L ABG O2 Saturation (96.0-97.0) % ABG Base Excess (-2-2.0) Simon Test O2 Delivery Device FiO2 (21.00-100.00) % Sodium (136-145) mEq/L Potassium (3.5-5.1) mEq/L Chloride (98-107) mEq/L Carbon Dioxide (21-32) mEq/L Anion Gap (5-15) BUN (7-18) mg/dL Creatinine (0.7-1.3) mg/dL Est Cr Clr Drug Dosing mL/min Estimated GFR (MDRD) (>60) mL/min BUN/Creatinine Ratio (14-18) Glucose (83-115) mg/dL POC Glucose 285 H (83-110) mg/dL Lactic Acid (0.4-2.0) mmol/L Calcium (8.5-10.1) mg/dL Phosphorus (2.6-4.7) mg/dL Magnesium (1.8-2.4) mg/dl Ferritin (26-388) ng/ml Total Bilirubin (0.2-1.0) mg/dL AST (15-37) U/L ALT (16-63) U/L Alkaline Phosphatase (46-116) U/L Lactate Dehydrogenase (85-227) U/L Troponin I (0.00-0.056) ng/mL C-Reactive Protein (<1.0) mg/dL NT-Pro-B Natriuret Pep (0-450) pg/mL Total Protein (6.4-8.2) g/dl Albumin (3.4-5.0) g/dl Globulin gm/dL Albumin/Globulin Ratio (1-2) Vitamin D 25-Hydroxy (30.0-100.0) ng/ml Influenza Type A RNA (NEGATIVE) Influenza Type B RNA (NEGATIVE) SARS-CoV-2 RNA (RADHA) (NEGATIVE) 10/25/20 10/25/20 Range/Units 04:59 06:05 WBC (4.23-9.07) K/mm3 RBC (4.63-6.08) M/mm3 Hgb (13.7-17.5) gm/dl Hct (40.1-51.0) % MCV (79.0-92.2) fl MCH (25.7-32.2) pg MCHC (32.2-35.5) g/dl RDW Std Deviation (35.1-43.9) fL Plt Count (163-337) K/mm3 MPV (9.4-12.3) fl Neut % (Auto) (34.0-67.9) % Lymph % (Auto) (21.8-53.1) % [place] % (Auto) (5.3-12.2) % Eos % (Auto) (0.8-7.0) Baso % (Auto) (0.1-1.2) % Neut # (Auto) (1.78-5.38) K/mm3 Lymph # (Auto) (1.32-3.57) K/mm3 [place] # (Auto) (0.30-0.82) K/mm3 Eos # (Auto) (0.04-0.54) K/mm3 Baso # (Auto) (0.01-0.08) K/mm3 Neutrophils % (Manual) (40-60) % Band Neutrophils % (0-10) % Lymphocytes % (Manual) (20-40) % Atypical Lymphs % % Monocytes % (Manual) (2-10) % Eosinophils % (Manual) (0.8-7.0) % Basophils % (Manual) (0.2-1.2) Platelet Estimate RBC Morph Comment PT (9.7-12.0) SECONDS INR APTT (21.7-31.4) SECONDS D-Dimer, Quantitative (0.19-0.50) mg/L Puncture Site ABG pH (7.35-7.45) ABG pCO2 (35.0-45.0) mmHg ABG pO2 (80.0-100.0) mmHg ABG HCO3 (22.0-26.0) meq/L ABG O2 Saturation (96.0-97.0) % ABG Base Excess (-2-2.0) Simon Test O2 Delivery Device FiO2 (21.00-100.00) % Sodium 130 L (136-145) mEq/L Potassium 4.1 (3.5-5.1) mEq/L Chloride 96 L (98-107) mEq/L Carbon Dioxide 25 (21-32) mEq/L Anion Gap 13.1 (5-15) BUN 28 H (7-18) mg/dL Creatinine 1.0 (0.7-1.3) mg/dL Est Cr Clr Drug Dosing 61.86 mL/min Estimated GFR (MDRD) > 60 (>60) mL/min BUN/Creatinine Ratio 28.0 H (14-18) Glucose 280 H (83-115) mg/dL POC Glucose 258 H (83-110) mg/dL Lactic Acid (0.4-2.0) mmol/L Calcium 8.2 L (8.5-10.1) mg/dL Phosphorus 3.1 (2.6-4.7) mg/dL Magnesium 2.1 (1.8-2.4) mg/dl Ferritin (26-388) ng/ml Total Bilirubin 0.5 (0.2-1.0) mg/dL AST 30 (15-37) U/L ALT 48 (16-63) U/L Alkaline Phosphatase 63 (46-116) U/L Lactate Dehydrogenase (85-227) U/L Troponin I (0.00-0.056) ng/mL C-Reactive Protein 6.0 H* (<1.0) mg/dL NT-Pro-B Natriuret Pep (0-450) pg/mL Total Protein 6.1 L (6.4-8.2) g/dl Albumin 2.8 L (3.4-5.0) g/dl Globulin 3.3 gm/dL Albumin/Globulin Ratio 0.9 L (1-2) Vitamin D 25-Hydroxy 74.4 (30.0-100.0) ng/ml Influenza Type A RNA (NEGATIVE) Influenza Type B RNA (NEGATIVE) SARS-CoV-2 RNA (RADHA) (NEGATIVE) Result Diagrams: 10/25/20 04:59 10/25/20 04:59 Sepsis Event Note - Evaluation Sepsis Screening Result: No Definite Risk - Focused Exam Vital Signs: Vital Signs Temp Pulse Pulse Resp BP BP Pulse Ox 10/25/20 07:46 98.4 F 54 L 16 123/51 L 91 L 10/25/20 06:23 10/25/20 03:21 98.1 F 72 16 142/77 H 91 L 10/24/20 23:58 99.0 F 72 18 146/100 H 93 L 10/24/20 23:46 10/24/20 23:32 80 89 L 10/24/20 21:54 98.2 F 73 28 H 150/73 H 92 L 10/24/20 20:45 74 20 119/60 92 L Pulse Ox 10/25/20 07:46 10/25/20 06:23 92 L 10/25/20 03:21 10/24/20 23:58 10/24/20 23:46 92 L 10/24/20 23:32 10/24/20 21:54 10/24/20 20:45 - Problem List (1) COVID-19 SNOMED Code(s): 322513076 ICD Code: U07.1 - COVID-19 Status: Acute Priority: High Current Visit: Yes (2) Hypoxia SNOMED Code(s): 841207610 ICD Code: R09.02 - HYPOXEMIA Status: Acute Priority: High Current Visit: Yes (3) HLD (hyperlipidemia) SNOMED Code(s): 38893277 ICD Code: E78.5 - HYPERLIPIDEMIA, UNSPECIFIED Status: Chronic Priority: Low Current Visit: No (4) HTN (hypertension) SNOMED Code(s): 52016953 ICD Code: I10 - ESSENTIAL (PRIMARY) HYPERTENSION Status: Chronic Priority: Medium Current Visit: No Qualifiers: Hypertension type: unspecified Qualified Code(s): I10 - Essential (primary) hypertension (5) Arthritis SNOMED Code(s): 0364679 ICD Code: M19.90 - UNSPECIFIED OSTEOARTHRITIS, UNSPECIFIED SITE Status: Chronic Priority: Low Current Visit: No (6) Type II diabetes mellitus SNOMED Code(s): 25264002 ICD Code: E11.9 - TYPE 2 DIABETES MELLITUS WITHOUT COMPLICATIONS Status: Chronic Priority: Medium Current Visit: Yes Qualifiers: Diabetes mellitus terminal manager insulin use: without jail use Diabetes mellitus complication status: with other specified complication Qualified Code(s): E11.69 - Type 2 diabetes mellitus with other specified complication (7) Smoker SNOMED Code(s): 33792075 ICD Code: F17.200 - NICOTINE DEPENDENCE, UNSPECIFIED, UNCOMPLICATED Status: Chronic Priority: Medium Current Visit: Yes Problem List Initiated/Reviewed/Updated: Yes Orders Last 24hrs: Active Orders 24 hr Category Date Time Status Admission Status [Patient Status] [ADT] Routine ADT 10/24/20 21:05 Active Blood Glucose Check, Bedside [RC] ONETIME Care 10/24/20 23:00 Active Cardiac Monitoring [RC] . DIRECTED Care 10/24/20 23:37 Active Influenza Vaccine Charge [RC] .DISCHARGE Care 10/24/20 23:08 Active Oxygen Therapy [RC] PRN Care 10/24/20 23:37 Active RT Incentive Spirometry [RC] ASDIRECTED Care 10/24/20 23:37 Active Up With Assistance [RC] ASDIRECTED Care 10/24/20 23:37 Active VTE/DVT Education [RC] PER UNIT ROUTINE Care 10/24/20 23:37 Active Vital Signs [RC] Q4HR Care 10/24/20 23:37 Active Regular Diet [DIET] Diet 10/25/20 Breakfast Active Chest 1V Frontal [CR] Stat Exams 10/24/20 18:38 Taken CULTURE BLOOD [BC] Stat Lab 10/24/20 19:25 Received CULTURE BLOOD [BC] Stat Lab 10/24/20 19:30 Received Acetaminophen [TylenoL] Med 10/24/20 23:37 Active 650 mg PO Q4H PRN Cholecalciferol (Vitamin D3) [Vitamin D3] Med 10/25/20 09:00 Active 5,000 unit PO DAILY Enoxaparin [Lovenox] Med 10/25/20 09:00 Active 40 mg SUBCUT DAILY Famotidine [Pepcid] Med 10/25/20 09:00 Active 20 mg PO BID Ondansetron [Zofran] Med 10/24/20 23:37 Active 4 mg IV Q4H PRN Remdesivir 100 mg Med 10/25/20 21:00 Active Sodium Chloride 0.9% [Normal Saline] 100 ml IV Q24H Sodium Chloride 0.9% [Saline Flush] Med 10/24/20 18:38 Active 10 ml FLUSH ASDIRECTED PRN Zinc Sulfate [Zincate] Med 10/25/20 09:00 Active 220 mg PO DAILY dexAMETHasone Med 10/25/20 09:00 Active 6 mg PO DAILY oxyCODONE Med 10/24/20 23:37 Active 5 mg PO Q4H PRN Blood Culture x2 Reflex Set [OM.PC] Stat Ot 10/24/20 18:55 Ordered Isolation [COMM] Stat Ot 10/24/20 23:37 Ordered Peripheral IV Insertion Adult [OM.PC] Routine Oth 10/24/20 18:38 Ordered Resuscitation Status Routine Resus Stat 10/24/20 23:37 Ordered Medication Orders Acetaminophen (Tylenol) 650 mg PO Q4H PRN PRN Reason: Pain (Mild 1-3)/fever Cholecalciferol (Vitamin D3) 5,000 unit PO DAILY [facility] Dexamethasone (Dexamethasone) 6 mg PO DAILY [facility] Stop: 11/02/20 09:01 Enoxaparin Sodium (Lovenox) 40 mg SUBCUT DAILY [facility] Famotidine (Pepcid) 20 mg PO BID [facility] Remdesivir 100 mg/ Sodium (Chloride) 100 mls @ 100 mls/hr IV Q24H [facility] Stop: 10/28/20 21:59 Ondansetron HCl (Zofran) 4 mg IV Q4H PRN PRN Reason: Nausea/Vomiting Oxycodone HCl (Oxycodone) 5 mg PO Q4H PRN PRN Reason: Pain (moderate 4-6) Sodium Chloride (Saline Flush) 10 ml FLUSH ASDIRECTED PRN PRN Reason: Keep Vein Open Last Admin: 10/24/20 18:42 Dose: 10 ml Documented by: JADE Zinc Sulfate (Zincate) 220 mg PO DAILY [facility] Assessment/Plan Comment:: Assessment - day of admission 10/24/20 (admitted overnight 10/23/20) * 79 yo male presents to our ED on 10/24/20 with SOB * was COVID positive - swabbed Wednesday and returned positive on 10/23/19 * Symptoms for 6-7 days before arrival at ED * 50 year smoker - 1.5 packs/day; Quit 6 days before admission * Saturations of 85-86% on room air in ED * Hx/o HLD, HTN, Arthritis, Type II DM, S/P Carotid Endarterectomy * 12-Lead EKG in ED shows NSR at 77BPM with LAD, RBBB, Moderately prolonged QTc, No ST changes * Labs: * WBC 7.11-->5.10 * Hgb 16.7-->15.1 * Platelet 120-->131 * Neutrophils 62%-->74.9% * Band neutrophils 2% * INR 0.99 * APTT 32.1 * D-Dimer 0.78 * CRP 5.8 * Sodium 132-->130 * Potassium 4.3-->4.1 * Chloride 94-->96 * Anion gap 14.3-->13.1 * BUN 28-->28 * Creatinine 1.2-->1.0 * GFR 59--> Greater than 60 * Glucose 188-->280 * Magnesium 2.0 * Ferritin 1477 * Total Bilirubin 0.8-->0.5 * AST 37-->30 * ALT 59-->48 * Alk phos 78-->63 * Troponin 0.028 * CRP 5.8-->6.0 * Pro-BNP 623 * Albumin 3.3-->2.8 * Lactic Acid 1.5 * Influenza A/B negative * SARS-CoV-2 RNA positive * Vitamin D 74.4 * ABG: Rt. Radial, pH 7.44, pCO2 38.2, pO2 46.0, HCO3 25.6, O2 saturation 83.1, Base excess 2.1 * CXR shows healing left sided rib fracture, nothing acute * Given 6mg dexamethasone and started on 200mg Remdesivir in ED PLAN: COVID-19 Hypoxia * Continue dexamethasone 6mg - Day 2/10 * Continue Remdesivir 200mg - Day 2/10 * IS/Acapella * RT consultation * PT/OT * CM/SW consult * O2 as needed - goal saturations 87-94% * Lovenox 40mg daily * Supplement zinc * Supplement vitamin D * Blood cultures pending * Telemetry/continuous pulse oximeter * Airborne/Contact precautions * Monitor D-Dimer Q48 hr * Follow labs Hyponatremia Hypoalbuminemia * Avoid IV fluids due to COVID-19 * Sodium chloride tabs * Director Of Occupational Therapy consultation Type II diabetes mellitus * Hold PO medications * Obtain A1C * Blood glucose checks QID AC and Bedtime * Medium intensity sliding scale insulin * Diabetic diet Smoker * Nicotine patches * Cessation counseling * Offer nicotine patches on discharge HLD (hyperlipidemia) HTN (hypertension) Arthritis * Reconcile/review home medications when available * Monitor labs/vital signs Code status: Full Code PCP: Dr. Nelson DVT Prophylaxis: Lovenox Social: Patient lives with his who is also COVID-19 positive Disposition: Patient admitted for treatment of COVID-19 and hypoxia. - Mortality Measure Prognosis:: Good
--- NOTE | 2020-10-25 08:50 | CR ---
Chest: Portable view of the chest was obtained. Comparison: Prior chest x-ray on 05/08/[address] study of 11/25/17. Areas of increased density within the left chest correlating to healing left-sided rib fractures. Lungs otherwise are clear with no acute parenchymal change. Heart size and mediastinum are normal. Scattered degenerative endplate spurring is noted within the spine. Impression: 1. Healing left-sided rib fractures causing increased density. 2. Nothing acute is otherwise appreciated. Diagnostic code #2
[2020-10-25] MEDS: Enoxaparin 40 MG/0.4 ML Syringe SUBCUT SCH (09:44)
[2020-10-25] MEDS: Famotidine 20 MG Tab PO SCH ×2 (09:45→22:01)
[2020-10-25] MEDS ORDERED: Nicotine 14 MG/24 Hr Patch TRDERM SCH (09:45)
[2020-10-25] MEDS: Zinc Sulfate 220 MG Cap PO SCH (09:45)
[2020-10-25] MEDS: Dexamethasone 4 MG Tab PO SCH (09:45)
[2020-10-25] MEDS: Cholecalciferol (Vitamin D3) 5,000 UNIT Cap PO SCH (09:45)
[2020-10-25] MEDS: Insulin Glarg,Human.Rec.Analog 100 Unit/ML SUBCUT SCH (09:56)
[2020-10-25] MEDS: Nicotine 21 MG/24 Hr Patch TRDERM SCH (09:56)
[2020-10-25 10:09] LABS: HEMOGLOBIN A1C 8.9 %
[2020-10-25] MEDS ORDERED: Albuterol 6.7 GM Inhaler INH PRN (10:23)
[2020-10-25] MEDS: Sodium Chloride 1 GM Tab PO SCH ×2 (10:56→22:02)
[2020-10-25] MEDS: Carvedilol 6.25 MG Tab PO SCH ×2 (10:56→17:35)
[2020-10-25] MEDS: Aspirin 81 MG Tab.EC PO SCH (10:56)
[2020-10-25] MEDS: Gabapentin 600 MG Tab PO SCH ×2 (11:00→22:01)
[2020-10-25] MEDS ORDERED: Enalapril 5 MG Tab PO SCH (11:00)
[2020-10-25] MEDS: Oxybutynin 5 MG Tab PO SCH ×2 (11:00→22:01)
[2020-10-25] MEDS: Furosemide 40 MG Tab PO SCH (11:00)
[2020-10-25] MEDS: Albuterol/Ipratropium 3.0-0.5 MG/3 ML Neb Soln INH SCH ×3 (12:50→21:11)
[2020-10-25] MEDS: REMDESIVIR 100 MG in Sodium Chloride 0.9% 100 ML IV SCH (22:03)
[2020-10-26] MEDS: Albuterol/Ipratropium 3.0-0.5 MG/3 ML Neb Soln INH SCH ×4 (08:12→20:28)
[2020-10-26] MEDS: Famotidine 20 MG Tab PO SCH ×2 (08:23→21:44)
[2020-10-26] MEDS: Aspirin 81 MG Tab.EC PO SCH (08:24)
[2020-10-26] MEDS: Dexamethasone 4 MG Tab PO SCH (08:25)
[2020-10-26] MEDS: Oxybutynin 5 MG Tab PO SCH ×2 (08:26→21:45)
[2020-10-26] MEDS: Gabapentin 600 MG Tab PO SCH ×2 (08:27→21:44)
[2020-10-26] MEDS: Cholecalciferol (Vitamin D3) 5,000 UNIT Cap PO SCH (08:27)
[2020-10-26] MEDS: Zinc Sulfate 220 MG Cap PO SCH (08:28)
[2020-10-26] MEDS: Sodium Chloride 1 GM Tab PO SCH (08:28)
[2020-10-26] MEDS: Furosemide 40 MG Tab PO SCH (08:29)
[2020-10-26] MEDS: Simvastatin 20 MG Tab PO SCH (08:29)
[2020-10-26] MEDS: Insulin Glarg,Human.Rec.Analog 100 Unit/ML SUBCUT SCH (08:30)
[2020-10-26] MEDS: Enoxaparin 40 MG/0.4 ML Syringe SUBCUT SCH (08:30)
[2020-10-26] MEDS: Nicotine 21 MG/24 Hr Patch TRDERM SCH (08:34)
[2020-10-26] MEDS: Carvedilol 3.125 MG Tab PO SCH ×2 (09:21→21:45)
[2020-10-26] MEDS: Carvedilol 6.25 MG Tab PO SCH (09:24)
--- NOTE | 2020-10-26 16:10 | PCM.PN ---
- General Info Date of Service: 10/26/20 Admission Dx/Problem (Free Text): Admission Diagnosis/Problem Admission Diagnosis/Problem Hypoxia Subjective Update: Patient seems to be getting better today. He is on a little less oxygen than at his max yesterday. Appetite is only marginal with one meal 25% and another at 100%. Functional Status: Reports: Pain Controlled - Review of Systems General: Reports: No Symptoms HEENT: Reports: No Symptoms Pulmonary: Reports: Shortness of Breath Cardiovascular: Reports: No Symptoms Musculoskeletal: Reports: No Symptoms - Patient Data Vitals - Most Recent: Last Vital Signs Temp 98.2 F 10/26/20 08:22 Pulse 57 L 10/26/20 09:21 Resp 24 H 10/26/20 08:22 BP 118/45 L 10/26/20 09:21 Pulse Ox 92 L 10/26/20 12:34 Weight - Most Recent: 170 lb 8 oz I&O - Last 24 Hours: Intake & Output 10/26/20 10/26/20 10/26/20 06:59 14:59 22:59 Intake Total 500 240 Balance 500 240 Lab Results Last 24 Hours: Laboratory Results - last 24 hr 10/25/20 10/25/20 10/26/20 Range/Units 17:07 22:00 04:49 WBC 7.23 (4.23-9.07) K/mm3 RBC 4.68 (4.63-6.08) M/mm3 Hgb 14.5 (13.7-17.5) gm/dl Hct 42.9 (40.1-51.0) % MCV 91.7 (79.0-92.2) fl MCH 31.0 (25.7-32.2) pg MCHC 33.8 (32.2-35.5) g/dl RDW Std Deviation 49.1 H (35.1-43.9) fL Plt Count 130 L (163-337) K/mm3 MPV 11.0 (9.4-12.3) fl Neut % (Auto) 66.7 (34.0-67.9) % Lymph % (Auto) 21.0 L (21.8-53.1) % [place] % (Auto) 11.1 (5.3-12.2) % Eos % (Auto) 0.3 L (0.8-7.0) Baso % (Auto) 0.3 (0.1-1.2) % Neut # (Auto) 4.83 (1.78-5.38) K/mm3 Lymph # (Auto) 1.52 (1.32-3.57) K/mm3 [place] # (Auto) 0.80 (0.30-0.82) K/mm3 Eos # (Auto) 0.02 L (0.04-0.54) K/mm3 Baso # (Auto) 0.02 (0.01-0.08) K/mm3 Sodium (136-145) mEq/L Potassium (3.5-5.1) mEq/L Chloride (98-107) mEq/L Carbon Dioxide (21-32) mEq/L Anion Gap (5-15) BUN (7-18) mg/dL Creatinine (0.7-1.3) mg/dL Est Cr Clr Drug Dosing mL/min Estimated GFR (MDRD) (>60) mL/min BUN/Creatinine Ratio (14-18) Glucose (83-115) mg/dL POC Glucose 174 H 233 H (83-110) mg/dL Calcium (8.5-10.1) mg/dL Phosphorus (2.6-4.7) mg/dL Magnesium (1.8-2.4) mg/dl Total Bilirubin (0.2-1.0) mg/dL AST (15-37) U/L ALT (16-63) U/L Alkaline Phosphatase (46-116) U/L C-Reactive Protein (<1.0) mg/dL Total Protein (6.4-8.2) g/dl Albumin (3.4-5.0) g/dl Globulin gm/dL Albumin/Globulin Ratio (1-2) 10/26/20 10/26/20 10/26/20 Range/Units 04:49 07:46 11:23 WBC (4.23-9.07) K/mm3 RBC (4.63-6.08) M/mm3 Hgb (13.7-17.5) gm/dl Hct (40.1-51.0) % MCV (79.0-92.2) fl MCH (25.7-32.2) pg MCHC (32.2-35.5) g/dl RDW Std Deviation (35.1-43.9) fL Plt Count (163-337) K/mm3 MPV (9.4-12.3) fl Neut % (Auto) (34.0-67.9) % Lymph % (Auto) (21.8-53.1) % [place] % (Auto) (5.3-12.2) % Eos % (Auto) (0.8-7.0) Baso % (Auto) (0.1-1.2) % Neut # (Auto) (1.78-5.38) K/mm3 Lymph # (Auto) (1.32-3.57) K/mm3 [place] # (Auto) (0.30-0.82) K/mm3 Eos # (Auto) (0.04-0.54) K/mm3 Baso # (Auto) (0.01-0.08) K/mm3 Sodium 130 L (136-145) mEq/L Potassium 3.8 (3.5-5.1) mEq/L Chloride 99 (98-107) mEq/L Carbon Dioxide 27 (21-32) mEq/L Anion Gap 7.8 (5-15) BUN 24 H (7-18) mg/dL Creatinine 0.8 (0.7-1.3) mg/dL Est Cr Clr Drug Dosing 77.33 mL/min Estimated GFR (MDRD) > 60 (>60) mL/min BUN/Creatinine Ratio 30.0 H (14-18) Glucose 88 (83-115) mg/dL POC Glucose 138 H 214 H (83-110) mg/dL Calcium 8.1 L (8.5-10.1) mg/dL Phosphorus 2.4 L (2.6-4.7) mg/dL Magnesium 2.0 (1.8-2.4) mg/dl Total Bilirubin 0.4 (0.2-1.0) mg/dL AST 28 (15-37) U/L ALT 41 (16-63) U/L Alkaline Phosphatase 58 (46-116) U/L C-Reactive Protein 4.0 H* (<1.0) mg/dL Total Protein 5.7 L (6.4-8.2) g/dl Albumin 2.6 L (3.4-5.0) g/dl Globulin 3.1 gm/dL Albumin/Globulin Ratio 0.8 L (1-2) Julio C Results Last 24 Hours: Microbiology 10/24/20 19:30 Aerobic Blood Culture - Preliminary Blood - Venous - Lab Draw NO GROWTH AFTER 1 DAY Anaerobic Blood Culture - Preliminary NO GROWTH AFTER 1 DAY 10/24/20 19:25 Aerobic Blood Culture - Preliminary Blood - Venous NO GROWTH AFTER 1 DAY Anaerobic Blood Culture - Preliminary NO GROWTH AFTER 1 DAY Med Orders - Current: Current Medications Acetaminophen (Tylenol) 650 mg PO Q4H PRN PRN Reason: Pain (Mild 1-3)/fever Albuterol (Proventil Hfa) 0 gm INH Q4H PRN PRN Reason: Shortness of Breath Albuterol/Ipratropium (Duoneb 3.0-0.5 Mg/3 Ml) 3 ml INH QID [facility] Last Admin: 10/26/20 12:33 Dose: 3 ml Documented by: Aspirin (Halfprin) 162 mg PO DAILY [facility] Last Admin: 10/26/20 08:24 Dose: 162 mg Documented by: Carvedilol (Coreg) 3.125 mg PO BID [facility] Last Admin: 10/26/20 09:21 Dose: 3.125 mg Documented by: Cholecalciferol (Vitamin D3) 5,000 unit PO DAILY [facility] Last Admin: 10/26/20 08:27 Dose: 5,000 unit Documented by: Dexamethasone (Dexamethasone) 6 mg PO DAILY [facility] Stop: 11/02/20 09:01 Last Admin: 10/26/20 08:25 Dose: 6 mg Documented by: Enoxaparin Sodium (Lovenox) 40 mg SUBCUT DAILY [facility] Last Admin: 10/26/20 08:30 Dose: 40 mg Documented by: Famotidine (Pepcid) 20 mg PO BID [facility] Last Admin: 10/26/20 08:23 Dose: 20 mg Documented by: Furosemide (Lasix) 40 mg PO DAILY [facility] Last Admin: 10/26/20 08:29 Dose: 40 mg Documented by: Gabapentin (Neurontin) 600 mg PO BID [facility] Last Admin: 10/26/20 08:27 Dose: 600 mg Documented by: Remdesivir 100 mg/ Sodium (Chloride) 100 mls @ 100 mls/hr IV Q24H [facility] Stop: 10/28/20 21:59 Last Admin: 10/25/20 22:03 Dose: 100 mls/hr Documented by: Insulin Glargine (Lantus) 10 unit SUBCUT DAILY [facility] Last Admin: 10/26/20 08:30 Dose: 10 units Documented by: Insulin Human Lispro (Humalog) 0 unit SUBCUT QIDACANDBED [facility]; Protocol Last Admin: 10/26/20 11:49 Dose: 4 units Documented by: Miscellaneous Information (Remove Patch) 1 ea TRDERM DAILY [facility] Last Admin: 10/26/20 08:34 Dose: Not Given Documented by: Nicotine (Habitrol) 21 mg TRDERM DAILY [facility] Last Admin: 10/26/20 08:34 Dose: Not Given Documented by: Ondansetron HCl (Zofran) 4 mg IV Q4H PRN PRN Reason: Nausea/Vomiting Oxybutynin Chloride (Oxybutynin) 5 mg PO BID [facility] Last Admin: 10/26/20 08:26 Dose: 5 mg Documented by: Oxycodone HCl (Oxycodone) 5 mg PO Q4H PRN PRN Reason: Pain (moderate 4-6) Simvastatin (Zocor) 20 mg PO DAILY [facility] Last Admin: 10/26/20 08:29 Dose: 20 mg Documented by: Sodium Chloride (Saline Flush) 10 ml FLUSH ASDIRECTED PRN PRN Reason: Keep Vein Open Last Admin: 10/24/20 18:42 Dose: 10 ml Documented by: Zinc Sulfate (Zincate) 220 mg PO DAILY [facility] Last Admin: 10/26/20 08:28 Dose: 220 mg Documented by: Discontinued Medications Carvedilol (Coreg) 6.25 mg PO BIDMEALS [facility] Last Admin: 10/26/20 09:24 Dose: Not Given Documented by: Dexamethasone (Decadron) 6 mg IVPUSH ONETIME ONE Stop: 10/24/20 19:45 Last Admin: 10/24/20 20:11 Dose: 6 mg Documented by: Enalapril Maleate (Vasotec) 5 mg PO DAILY [facility] Last Admin: 10/25/20 11:00 Dose: 5 mg Documented by: Remdesivir 200 mg/ Sodium (Chloride) 250 mls @ 250 mls/hr IV ONETIME ONE Stop: 10/24/20 19:45 Last Admin: 10/24/20 20:13 Dose: 250 mls/hr Documented by: Influenza Virus Vaccine (Pharmacy To Dose - Influenza Vaccine) 1 each IM ONETIME ONE Stop: 10/24/20 23:09 Influenza Virus Vaccine (Fluzone High-Dose Quad ) 240 mcg IM .ONCE ONE Stop: 10/24/20 23:31 Nicotine (Habitrol) 14 mg TRDERM DAILY [facility] Sodium Chloride (Sodium Chloride) 1 gm PO BID [facility] Stop: 10/26/20 09:01 Last Admin: 10/26/20 08:28 Dose: 1 gm Documented by: - Exam Quality Assessment: Supplemental Oxygen (4 L) General: Alert, Oriented HEENT: Pupils Equal, Mucous Membr. Moist/[place] Neck: Supple Lungs: Normal Respiratory Effort (Mildly tachypneic), Rales Cardiovascular: Regular Rate, Regular Rhythm GI/Abdominal Exam: Normal Bowel Sounds, Soft, Non-Tender, No Distention Extremities: Normal Inspection, Normal Range of Motion, Non-Tender, No Pedal Edema, Normal Capillary Refill Skin: Warm, Dry, Intact Psy/Mental Status: Alert, Normal Affect, Normal Mood Sepsis Event Note - Evaluation Sepsis Screening Result: No Definite Risk - Focused Exam Vital Signs: Vital Signs Temp Pulse Resp BP Pulse Ox Pulse Ox 10/26/20 12:34 92 L 10/26/20 09:21 57 L 118/45 L 10/26/20 08:22 98.2 F 57 L 24 H 118/45 L 88 L 10/26/20 08:12 92 L - Problem List & Annotations (1) Hyponatremia SNOMED Code(s): 57181778 Code(s): E87.1 - HYPO-OSMOLALITY AND HYPONATREMIA Status: Acute Current Visit: Yes (2) COVID-19 SNOMED Code(s): 043156781 Code(s): U07.1 - COVID-19 Status: Acute Priority: High Current Visit: Yes (3) Hypoxia SNOMED Code(s): 521147683 Code(s): R09.02 - HYPOXEMIA Status: Acute Priority: High Current Visit: Yes (4) Type II diabetes mellitus SNOMED Code(s): 09374577 Code(s): E11.9 - TYPE 2 DIABETES MELLITUS WITHOUT COMPLICATIONS Status: Chronic Priority: Medium Current Visit: Yes Qualifiers: Diabetes mellitus equipment operator intermodal yard insulin use: without mcfp use Diabetes mellitus complication status: with other specified complication Qualified Code(s): E11.69 - Type 2 diabetes mellitus with other specified complication (5) HTN (hypertension) SNOMED Code(s): 07691933 Code(s): I10 - ESSENTIAL (PRIMARY) HYPERTENSION Status: Chronic Priority: Medium Current Visit: No Qualifiers: Hypertension type: unspecified Qualified Code(s): I10 - Essential (primary) hypertension - Problem List Review Problem List Initiated/Reviewed/Updated: Yes - My Orders Last 24 Hours: My Active Orders 10/25/20 21:00 Remdesivir 100 mg Sodium Chloride 0.9% [Normal Saline] 100 ml IV Q24H 10/26/20 09:00 carvediloL [Coreg] 3.125 mg PO BID - Plan Plan:: Assessment - day of admission 10/25/20 (admitted overnight 10/24/20) * 79 yo male presents to our ED on 10/24/20 with SOB * was COVID positive - swabbed Wednesday and returned positive on 10/23/19 * Symptoms for 6-7 days before arrival at ED * 50 year smoker - 1.5 packs/day; Quit 6 days before admission * Saturations of 85-86% on room air in ED * Hx/o HLD, HTN, Arthritis, Type II DM, S/P Carotid Endarterectomy * 12-Lead EKG in ED shows NSR at 77BPM with LAD, RBBB, Moderately prolonged QTc, No ST changes * Labs: * WBC 7.11-->5.10 * Hgb 16.7-->15.1 * Platelet 120-->131 * Neutrophils 62%-->74.9% * Band neutrophils 2% * INR 0.99 * APTT 32.1 * D-Dimer 0.78 * CRP 5.8 * Sodium 132-->130 * Potassium 4.3-->4.1 * Chloride 94-->96 * Anion gap 14.3-->13.1 * BUN 28-->28 * Creatinine 1.2-->1.0 * GFR 59--> Greater than 60 * Glucose 188-->280 * Magnesium 2.0 * Ferritin 1477 * Total Bilirubin 0.8-->0.5 * AST 37-->30 * ALT 59-->48 * Alk phos 78-->63 * Troponin 0.028 * CRP 5.8-->6.0 * Pro-BNP 623 * Albumin 3.3-->2.8 * Lactic Acid 1.5 * Influenza A/B negative * SARS-CoV-2 RNA positive * Vitamin D 74.4 * ABG: Rt. Radial, pH 7.44, pCO2 38.2, pO2 46.0, HCO3 25.6, O2 saturation 83.1, Base excess 2.1 * CXR shows healing left sided rib fracture, nothing acute * Given 6mg dexamethasone and started on 200mg Remdesivir in ED PLAN: COVID-19 Hypoxia * Continue dexamethasone 6mg - Day 11/13 * Continue Remdesivir 200mg - Day 10 * IS/Acapella * RT consultation * PT/OT * CM/SW consult * O2 as needed - goal saturations 87-94% * Lovenox 40mg daily * Supplement zinc * Supplement vitamin D * Blood cultures pending * Telemetry/continuous pulse oximeter * Airborne/Contact precautions * Monitor D-Dimer Q48 hr * Follow labs Hyponatremia Hypoalbuminemia * Avoid IV fluids due to COVID-19 * Sodium chloride tabs * Diamond Grader consultation Type II diabetes mellitus * Hold PO medications * Obtain A1C * Blood glucose checks QID AC and Bedtime * Medium intensity sliding scale insulin * Diabetic diet Smoker * Nicotine patches * Cessation counseling * Offer nicotine patches on discharge HLD (hyperlipidemia) HTN (hypertension) Arthritis * Reconcile/review home medications when available * Monitor labs/vital signs 10/26/2020 79-year-old male with COVID-19 and viral pneumonitis. * Patient is clearly improving but very stable. * Day 3 of dexamethasone and remdesivir. * Oxygen supplementation stable at 4 L via nasal cannula * Patient's peak of illness should be in the next couple of days. This should help determine if he is going to continue to get worse, stabilize, or improve. Plan * No significant change from above plan. Code status: Full Code PCP: Dr. Nelson DVT Prophylaxis: Lovenox Social: Patient lives with his who is also COVID-19 positive Disposition: Patient admitted for treatment of COVID-19 and hypoxia.
[2020-10-26] MEDS: REMDESIVIR 100 MG in Sodium Chloride 0.9% 100 ML IV SCH (21:44)
[2020-10-27] MEDS: Dexamethasone 4 MG Tab PO SCH (08:19)
[2020-10-27] MEDS: Simvastatin 20 MG Tab PO SCH (08:20)
[2020-10-27] MEDS: Aspirin 81 MG Tab.EC PO SCH (08:21)
[2020-10-27] MEDS: Furosemide 40 MG Tab PO SCH (08:22)
[2020-10-27] MEDS: Cholecalciferol (Vitamin D3) 5,000 UNIT Cap PO SCH (08:22)
[2020-10-27] MEDS: Carvedilol 3.125 MG Tab PO SCH ×2 (08:22→22:32)
[2020-10-27] MEDS: Oxybutynin 5 MG Tab PO SCH ×2 (08:27→22:33)
[2020-10-27] MEDS: Zinc Sulfate 220 MG Cap PO SCH (08:28)
[2020-10-27] MEDS: Gabapentin 600 MG Tab PO SCH ×2 (08:28→22:32)
[2020-10-27] MEDS: Insulin Glarg,Human.Rec.Analog 100 Unit/ML SUBCUT SCH (08:29)
[2020-10-27] MEDS: Famotidine 20 MG Tab PO SCH ×2 (08:29→22:33)
[2020-10-27] MEDS: Enoxaparin 40 MG/0.4 ML Syringe SUBCUT SCH (08:30)
[2020-10-27] MEDS: Nicotine 21 MG/24 Hr Patch TRDERM SCH (08:31)
[2020-10-27] MEDS: Albuterol/Ipratropium 3.0-0.5 MG/3 ML Neb Soln INH SCH (08:31)
[2020-10-27] MEDS: Albuterol/Ipratropium 3.0-0.5 MG/3 ML Neb Soln NEB SCH ×2 (13:22→22:09)
--- NOTE | 2020-10-27 18:28 | PCM.PN ---
- General Info Date of Service: 10/27/20 Admission Dx/Problem (Free Text): Admission Diagnosis/Problem Admission Diagnosis/Problem Hypoxia - Review of Systems General: Reports: No Symptoms HEENT: Reports: No Symptoms Pulmonary: Reports: Shortness of Breath, Cough Cardiovascular: Reports: No Symptoms Gastrointestinal: Reports: No Symptoms Musculoskeletal: Reports: No Symptoms Neurological: Reports: No Symptoms Psychiatric: Reports: No Symptoms - Patient Data Vitals - Most Recent: Last Vital Signs Temp 97.7 F 10/27/20 15:21 Pulse 53 L 10/27/20 15:21 Resp 16 10/27/20 15:21 BP 137/52 L 10/27/20 15:21 Pulse Ox 95 10/27/20 15:21 Weight - Most Recent: 169 lb 14.4 oz I&O - Last 24 Hours: Intake & Output 10/27/20 10/27/20 10/27/20 06:59 14:59 22:59 Intake Total 500 360 840 Output Total 750 Balance -250 360 840 Lab Results Last 24 Hours: Laboratory Results - last 24 hr 10/26/20 10/27/20 10/27/20 Range/Units 21:13 05:10 05:10 WBC 7.69 (4.23-9.07) K/mm3 RBC 4.79 (4.63-6.08) M/mm3 Hgb 14.9 (13.7-17.5) gm/dl Hct 44.0 (40.1-51.0) % MCV 91.9 (79.0-92.2) fl MCH 31.1 (25.7-32.2) pg MCHC 33.9 (32.2-35.5) g/dl RDW Std Deviation 49.1 H (35.1-43.9) fL Plt Count 159 L (163-337) K/mm3 MPV 10.7 (9.4-12.3) fl Neut % (Auto) 72.0 H (34.0-67.9) % Lymph % (Auto) 17.8 L (21.8-53.1) % [place] % (Auto) 9.6 (5.3-12.2) % Eos % (Auto) 0 L (0.8-7.0) Baso % (Auto) 0.1 (0.1-1.2) % Neut # (Auto) 5.53 H (1.78-5.38) K/mm3 Lymph # (Auto) 1.37 (1.32-3.57) K/mm3 [place] # (Auto) 0.74 (0.30-0.82) K/mm3 Eos # (Auto) 0.00 L (0.04-0.54) K/mm3 Baso # (Auto) 0.01 (0.01-0.08) K/mm3 Manual Slide Review Normal smear D-Dimer, Quantitative (0.19-0.50) mg/L Sodium 138 (136-145) mEq/L Potassium 3.9 (3.5-5.1) mEq/L Chloride 102 (98-107) mEq/L Carbon Dioxide 28 (21-32) mEq/L Anion Gap 11.9 (5-15) BUN 25 H (7-18) mg/dL Creatinine 0.8 (0.7-1.3) mg/dL Est Cr Clr Drug Dosing 77.33 mL/min Estimated GFR (MDRD) > 60 (>60) mL/min BUN/Creatinine Ratio 31.3 H (14-18) Glucose 149 H (83-115) mg/dL POC Glucose 395 H (83-110) mg/dL Calcium 8.5 (8.5-10.1) mg/dL Magnesium 1.9 (1.8-2.4) mg/dl Total Bilirubin 0.4 (0.2-1.0) mg/dL AST 53 H (15-37) U/L ALT 80 H (16-63) U/L Alkaline Phosphatase 72 (46-116) U/L C-Reactive Protein 3.9 H* (<1.0) mg/dL Total Protein 5.8 L (6.4-8.2) g/dl Albumin 2.5 L (3.4-5.0) g/dl Globulin 3.3 gm/dL Albumin/Globulin Ratio 0.8 L (1-2) 10/27/20 10/27/20 10/27/20 Range/Units 05:10 06:47 11:36 WBC (4.23-9.07) K/mm3 RBC (4.63-6.08) M/mm3 Hgb (13.7-17.5) gm/dl Hct (40.1-51.0) % MCV (79.0-92.2) fl MCH (25.7-32.2) pg MCHC (32.2-35.5) g/dl RDW Std Deviation (35.1-43.9) fL Plt Count (163-337) K/mm3 MPV (9.4-12.3) fl Neut % (Auto) (34.0-67.9) % Lymph % (Auto) (21.8-53.1) % [place] % (Auto) (5.3-12.2) % Eos % (Auto) (0.8-7.0) Baso % (Auto) (0.1-1.2) % Neut # (Auto) (1.78-5.38) K/mm3 Lymph # (Auto) (1.32-3.57) K/mm3 [place] # (Auto) (0.30-0.82) K/mm3 Eos # (Auto) (0.04-0.54) K/mm3 Baso # (Auto) (0.01-0.08) K/mm3 Manual Slide Review D-Dimer, Quantitative 0.61 H (0.19-0.50) mg/L Sodium (136-145) mEq/L Potassium (3.5-5.1) mEq/L Chloride (98-107) mEq/L Carbon Dioxide (21-32) mEq/L Anion Gap (5-15) BUN (7-18) mg/dL Creatinine (0.7-1.3) mg/dL Est Cr Clr Drug Dosing mL/min Estimated GFR (MDRD) (>60) mL/min BUN/Creatinine Ratio (14-18) Glucose (83-115) mg/dL POC Glucose 133 H 268 H (83-110) mg/dL Calcium (8.5-10.1) mg/dL Magnesium (1.8-2.4) mg/dl Total Bilirubin (0.2-1.0) mg/dL AST (15-37) U/L ALT (16-63) U/L Alkaline Phosphatase (46-116) U/L C-Reactive Protein (<1.0) mg/dL Total Protein (6.4-8.2) g/dl Albumin (3.4-5.0) g/dl Globulin gm/dL Albumin/Globulin Ratio (1-2) Julio C Results Last 24 Hours: Microbiology 10/24/20 19:30 Aerobic Blood Culture - Preliminary Blood - Venous - Lab Draw NO GROWTH AFTER 2 DAYS Anaerobic Blood Culture - Preliminary NO GROWTH AFTER 2 DAYS 10/24/20 19:25 Aerobic Blood Culture - Preliminary Blood - Venous NO GROWTH AFTER 2 DAYS Anaerobic Blood Culture - Preliminary NO GROWTH AFTER 2 DAYS Med Orders - Current: Current Medications Acetaminophen (Tylenol) 650 mg PO Q4H PRN PRN Reason: Pain (Mild 1-3)/fever Albuterol (Proventil Hfa) 0 gm INH Q4H PRN PRN Reason: Shortness of Breath Albuterol/Ipratropium (Duoneb 3.0-0.5 Mg/3 Ml) 3 ml NEB TIDRT [facility] Last Admin: 10/27/20 13:22 Dose: 3 ml Documented by: Aspirin (Halfprin) 162 mg PO DAILY [facility] Last Admin: 10/27/20 08:21 Dose: 162 mg Documented by: Carvedilol (Coreg) 3.125 mg PO BID [facility] Last Admin: 10/27/20 08:22 Dose: 3.125 mg Documented by: Cholecalciferol (Vitamin D3) 5,000 unit PO DAILY [facility] Last Admin: 10/27/20 08:22 Dose: 5,000 unit Documented by: Dexamethasone (Dexamethasone) 6 mg PO DAILY [facility] Stop: 11/02/20 09:01 Last Admin: 10/27/20 08:19 Dose: 6 mg Documented by: Enoxaparin Sodium (Lovenox) 40 mg SUBCUT DAILY [facility] Last Admin: 10/27/20 08:30 Dose: 40 mg Documented by: Famotidine (Pepcid) 20 mg PO BID [facility] Last Admin: 10/27/20 08:29 Dose: 20 mg Documented by: Furosemide (Lasix) 40 mg PO DAILY [facility] Last Admin: 10/27/20 08:22 Dose: 40 mg Documented by: Gabapentin (Neurontin) 600 mg PO BID [facility] Last Admin: 10/27/20 08:28 Dose: 600 mg Documented by: Remdesivir 100 mg/ Sodium (Chloride) 100 mls @ 100 mls/hr IV Q24H [facility] Stop: 10/28/20 21:59 Last Admin: 10/26/20 21:44 Dose: 100 mls/hr Documented by: Insulin Glargine (Lantus) 10 unit SUBCUT DAILY [facility] Last Admin: 10/27/20 08:29 Dose: 10 units Documented by: Insulin Human Lispro (Humalog) 0 unit SUBCUT QIDACANDBED [facility]; Protocol Last Admin: 10/27/20 16:22 Dose: 8 units Documented by: Miscellaneous Information (Remove Patch) 1 ea TRDERM DAILY [facility] Last Admin: 10/27/20 11:25 Dose: Not Given Documented by: Nicotine (Habitrol) 21 mg TRDERM DAILY [facility] Last Admin: 10/27/20 08:31 Dose: Not Given Documented by: Ondansetron HCl (Zofran) 4 mg IV Q4H PRN PRN Reason: Nausea/Vomiting Oxybutynin Chloride (Oxybutynin) 5 mg PO BID [facility] Last Admin: 10/27/20 08:27 Dose: 5 mg Documented by: Oxycodone HCl (Oxycodone) 5 mg PO Q4H PRN PRN Reason: Pain (moderate 4-6) Simvastatin (Zocor) 20 mg PO DAILY [facility] Last Admin: 10/27/20 08:20 Dose: 20 mg Documented by: Sodium Chloride (Saline Flush) 10 ml FLUSH ASDIRECTED PRN PRN Reason: Keep Vein Open Last Admin: 10/24/20 18:42 Dose: 10 ml Documented by: Zinc Sulfate (Zincate) 220 mg PO DAILY [facility] Last Admin: 10/27/20 08:28 Dose: 220 mg Documented by: Discontinued Medications Albuterol/Ipratropium (Duoneb 3.0-0.5 Mg/3 Ml) 3 ml INH QID [facility] Last Admin: 10/27/20 08:31 Dose: 3 ml Documented by: Carvedilol (Coreg) 6.25 mg PO BIDMEALS [facility] Last Admin: 10/26/20 09:24 Dose: Not Given Documented by: Dexamethasone (Decadron) 6 mg IVPUSH ONETIME ONE Stop: 10/24/20 19:45 Last Admin: 10/24/20 20:11 Dose: 6 mg Documented by: Enalapril Maleate (Vasotec) 5 mg PO DAILY [facility] Last Admin: 10/25/20 11:00 Dose: 5 mg Documented by: Remdesivir 200 mg/ Sodium (Chloride) 250 mls @ 250 mls/hr IV ONETIME ONE Stop: 10/24/20 19:45 Last Admin: 10/24/20 20:13 Dose: 250 mls/hr Documented by: Influenza Virus Vaccine (Pharmacy To Dose - Influenza Vaccine) 1 each IM ONETIME ONE Stop: 10/24/20 23:09 Influenza Virus Vaccine (Fluzone High-Dose Quad ) 240 mcg IM .ONCE ONE Stop: 10/24/20 23:31 Nicotine (Habitrol) 14 mg TRDERM DAILY [facility] Oxybutynin Chloride (Oxybutynin) 5 mg PO BID [facility] Last Admin: 10/26/20 08:26 Dose: 5 mg Documented by: Sodium Chloride (Sodium Chloride) 1 gm PO BID [facility] Stop: 10/26/20 09:01 Last Admin: 10/26/20 08:28 Dose: 1 gm Documented by: - Exam Quality Assessment: Supplemental Oxygen (4 L) General: Alert, Oriented HEENT: Pupils Equal, Mucous Membr. Moist/Pace Neck: Supple Lungs: Normal Respiratory Effort, Crackles (Mild bibasilarimproved) Cardiovascular: Regular Rate, Regular Rhythm GI/Abdominal Exam: Normal Bowel Sounds, Soft, Non-Tender, No Distention Extremities: Normal Inspection, Normal Range of Motion, Non-Tender, No Pedal Edema, Normal Capillary Refill Skin: Warm, Dry, Intact Psy/Mental Status: Alert, Normal Affect, Normal Mood Sepsis Event Note - Evaluation Sepsis Screening Result: No Definite Risk - Focused Exam Vital Signs: Vital Signs Temp Pulse Resp BP Pulse Ox Pulse Ox 10/27/20 15:21 97.7 F 53 L 16 137/52 L 95 10/27/20 13:22 92 L 10/27/20 11:38 98.1 F 58 L 16 132/56 L 95 10/27/20 10:22 98.1 F 58 L 20 105/56 L 91 L 10/27/20 08:25 55 L 91 L 10/27/20 08:22 55 L 152/58 H 10/27/20 08:00 92 L 10/27/20 07:55 98.2 F 55 L 16 152/58 H 92 L - Problem List & Annotations (1) Hyponatremia SNOMED Code(s): 76859489 Code(s): E87.1 - HYPO-OSMOLALITY AND HYPONATREMIA Status: Acute Current Visit: Yes (2) COVID-19 SNOMED Code(s): 175744126 Code(s): U07.1 - COVID-19 Status: Acute Priority: High Current Visit: Yes (3) Hypoxia SNOMED Code(s): 546056259 Code(s): R09.02 - HYPOXEMIA Status: Acute Priority: High Current Visit: Yes (4) Type II diabetes mellitus SNOMED Code(s): 50313855 Code(s): E11.9 - TYPE 2 DIABETES MELLITUS WITHOUT COMPLICATIONS Status: Chronic Priority: Medium Current Visit: Yes Qualifiers: Diabetes mellitus terminal press operator insulin use: without terminal press operator use Diabetes mellitus complication status: with other specified complication Qualified Code(s): E11.69 - Type 2 diabetes mellitus with other specified complication (5) HTN (hypertension) SNOMED Code(s): 24283708 Code(s): I10 - ESSENTIAL (PRIMARY) HYPERTENSION Status: Chronic Priority: Medium Current Visit: No Qualifiers: Hypertension type: unspecified Qualified Code(s): I10 - Essential (primary) hypertension - Problem List Review Problem List Initiated/Reviewed/Updated: Yes - My Orders Last 24 Hours: My Active Orders 10/26/20 21:00 Oxybutynin 5 mg PO BID 10/27/20 14:00 Albuterol/Ipratropium [DuoNeb 3.0-0.5 MG/3 ML] 3 ml NEB TIDRT - Plan Plan:: Assessment - day of admission 10/25/20 (admitted overnight 10/24/20) * 79 yo male presents to our ED on 10/24/20 with SOB * was COVID positive - swabbed Wednesday and returned positive on 10/23/19 * Symptoms for 6-7 days before arrival at ED * 50 year smoker - 1.5 packs/day; Quit 6 days before admission * Saturations of 85-86% on room air in ED * Hx/o HLD, HTN, Arthritis, Type II DM, S/P Carotid Endarterectomy * 12-Lead EKG in ED shows NSR at 77BPM with LAD, RBBB, Moderately prolonged QTc, No ST changes * Labs: * WBC 7.11-->5.10 * Hgb 16.7-->15.1 * Platelet 120-->131 * Neutrophils 62%-->74.9% * Band neutrophils 2% * INR 0.99 * APTT 32.1 * D-Dimer 0.78 * CRP 5.8 * Sodium 132-->130 * Potassium 4.3-->4.1 * Chloride 94-->96 * Anion gap 14.3-->13.1 * BUN 28-->28 * Creatinine 1.2-->1.0 * GFR 59--> Greater than 60 * Glucose 188-->280 * Magnesium 2.0 * Ferritin 1477 * Total Bilirubin 0.8-->0.5 * AST 37-->30 * ALT 59-->48 * Alk phos 78-->63 * Troponin 0.028 * CRP 5.8-->6.0 * Pro-BNP 623 * Albumin 3.3-->2.8 * Lactic Acid 1.5 * Influenza A/B negative * SARS-CoV-2 RNA positive * Vitamin D 74.4 * ABG: Rt. Radial, pH 7.44, pCO2 38.2, pO2 46.0, HCO3 25.6, O2 saturation 83.1, Base excess 2.1 * CXR shows healing left sided rib fracture, nothing acute * Given 6mg dexamethasone and started on 200mg Remdesivir in ED PLAN: COVID-19 Hypoxia * Continue dexamethasone 6mg - Day 11/13 * Continue Remdesivir 200mg - Day 10 * IS/Acapella * RT consultation * PT/OT * CM/SW consult * O2 as needed - goal saturations 87-94% * Lovenox 40mg daily * Supplement zinc * Supplement vitamin D * Blood cultures pending * Telemetry/continuous pulse oximeter * Airborne/Contact precautions * Monitor D-Dimer Q48 hr * Follow labs Hyponatremia Hypoalbuminemia * Avoid IV fluids due to COVID-19 * Sodium chloride tabs * Auto Body Worker consultation Type II diabetes mellitus * Hold PO medications * Obtain A1C * Blood glucose checks QID AC and Bedtime * Medium intensity sliding scale insulin * Diabetic diet Smoker * Nicotine patches * Cessation counseling * Offer nicotine patches on discharge HLD (hyperlipidemia) HTN (hypertension) Arthritis * Reconcile/review home medications when available * Monitor labs/vital signs 10/26/2020 79-year-old male with COVID-19 and viral pneumonitis. * Patient is clearly improving but very stable. * Day 3 of dexamethasone and remdesivir. * Oxygen supplementation stable at 4 L via nasal cannula * Patient's peak of illness should be in the next couple of days. This should help determine if he is going to continue to get worse, stabilize, or improve. Plan * No significant change from above plan. 10/27/2020 79-year-old male with COVID-19 viral pneumonia. Multiple other chronic medical problems see above. Patient has had no significant change in his condition over the last 24 hours. He continues on 4 L via nasal cannula. His white count continues to be normal as well as his hemoglobin. Sodium did increase to normal at 138 which is reassuring. C-reactive protein is down to 3.9. Unfortunately, albumin continues to drop and is now at 2.5. This is very consistent for COVID-19 infection. Patient's appetite is good and he is eating 80 to 100% of his meals. He is currently on day 4 of dexamethasone and remdesivir. Blood pressures have been good ranging from 108 systolic up to 152 systolic. Glucose has been more labile ranging from 133 up to 328. Plan: Continue with current treatment of dexamethasone and remdesivir. Try to wean to 2 L before discharging home, but that may not be possible secondary to his history of smoking. Code status: Full Code PCP: Dr. Nelson DVT Prophylaxis: Lovenox Social: Patient lives with his who is also COVID-19 positive Disposition: Patient admitted for treatment of COVID-19 and hypoxia.
[2020-10-27] MEDS: REMDESIVIR 100 MG in Sodium Chloride 0.9% 100 ML IV SCH (22:34)
[2020-10-28] MEDS: Albuterol/Ipratropium 3.0-0.5 MG/3 ML Neb Soln NEB SCH ×3 (07:10→20:13)
--- NOTE | 2020-10-28 08:22 | PCM.PN ---
<Amor Hathaway - Last Filed: 10/28/20 11:28> - General Info Date of Service: 10/28/20 Admission Dx/Problem (Free Text): Admission Diagnosis/Problem Admission Diagnosis/Problem Hypoxia Subjective Update: In to see Davon. He is lying in bed and trying to get a nap in. He remains on 4 L via nasal cannula. We discussed oxygen need and the possibility of him being discharged on oxygen. He will receive his last infusion of remdesivir today. He reports he feels pretty good otherwise. Reports his was discharged home and is now quite short of breath, she was hospitalized after being found Covid positive as well over the weekend. Labs remained grossly stable. We will continue to attempt to wean off of oxygen. Functional Status: Reports: Pain Controlled, Tolerating Diet, Ambulating, Urinating, Incentive Spirometry, Other (Acapella ). Denies: New Symptoms - Review of Systems General: Reports: No Symptoms. Denies: Fever, Weakness, Fatigue, Malaise, Chills HEENT: Reports: No Symptoms. Denies: Headaches, Sore Throat Pulmonary: Reports: Shortness of Breath, Cough, Sputum. Denies: Wheezing Cardiovascular: Reports: Dyspnea on Exertion. Denies: Chest Pain Gastrointestinal: Reports: No Symptoms. Denies: Abdominal Pain, Constipation, Diarrhea, Nausea, Vomiting Genitourinary: Reports: No Symptoms. Denies: Pain Musculoskeletal: Reports: No Symptoms Skin: Reports: No Symptoms. Denies: Cyanosis Neurological: Reports: No Symptoms. Denies: Confusion, Difficulty Walking, Gait Disturbance Psychiatric: Reports: No Symptoms. Denies: Confusion - Patient Data Vitals - Most Recent: Last Vital Signs Temp 97.9 F 10/28/20 05:37 Pulse 53 L 10/28/20 05:37 Resp 20 10/28/20 05:37 BP 143/63 H 10/28/20 05:37 Pulse Ox 93 L 10/28/20 05:37 Weight - Most Recent: 77.065 kg I&O - Last 24 Hours: Intake & Output 10/27/20 10/28/20 10/28/20 22:59 06:59 14:59 Intake Total 840 Balance 840 Lab Results Last 24 Hours: Laboratory Results - last 24 hr 10/27/20 10/27/20 10/27/20 Range/Units 06:47 11:36 15:55 WBC (4.23-9.07) K/mm3 RBC (4.63-6.08) M/mm3 Hgb (13.7-17.5) gm/dl Hct (40.1-51.0) % MCV (79.0-92.2) fl MCH (25.7-32.2) pg MCHC (32.2-35.5) g/dl RDW Std Deviation (35.1-43.9) fL Plt Count (163-337) K/mm3 MPV (9.4-12.3) fl Neut % (Auto) (34.0-67.9) % Lymph % (Auto) (21.8-53.1) % [place] % (Auto) (5.3-12.2) % Eos % (Auto) (0.8-7.0) Baso % (Auto) (0.1-1.2) % Neut # (Auto) (1.78-5.38) K/mm3 Lymph # (Auto) (1.32-3.57) K/mm3 [place] # (Auto) (0.30-0.82) K/mm3 Eos # (Auto) (0.04-0.54) K/mm3 Baso # (Auto) (0.01-0.08) K/mm3 Manual Slide Review Sodium (136-145) mEq/L Potassium (3.5-5.1) mEq/L Chloride (98-107) mEq/L Carbon Dioxide (21-32) mEq/L Anion Gap (5-15) BUN (7-18) mg/dL Creatinine (0.7-1.3) mg/dL Est Cr Clr Drug Dosing mL/min Estimated GFR (MDRD) (>60) mL/min BUN/Creatinine Ratio (14-18) Glucose (83-115) mg/dL POC Glucose 133 H 268 H 328 H (83-110) mg/dL Calcium (8.5-10.1) mg/dL Magnesium (1.8-2.4) mg/dl Total Bilirubin (0.2-1.0) mg/dL AST (15-37) U/L ALT (16-63) U/L Alkaline Phosphatase (46-116) U/L C-Reactive Protein (<1.0) mg/dL Total Protein (6.4-8.2) g/dl Albumin (3.4-5.0) g/dl Globulin gm/dL Albumin/Globulin Ratio (1-2) 10/27/20 10/28/20 10/28/20 Range/Units 22:42 06:17 07:06 WBC 9.05 (4.23-9.07) K/mm3 RBC 5.17 (4.63-6.08) M/mm3 Hgb 15.8 (13.7-17.5) gm/dl Hct 47.2 (40.1-51.0) % MCV 91.3 (79.0-92.2) fl MCH 30.6 (25.7-32.2) pg MCHC 33.5 (32.2-35.5) g/dl RDW Std Deviation 49.0 H (35.1-43.9) fL Plt Count 195 (163-337) K/mm3 MPV 10.7 (9.4-12.3) fl Neut % (Auto) 73.9 H (34.0-67.9) % Lymph % (Auto) 16.0 L (21.8-53.1) % [place] % (Auto) 8.8 (5.3-12.2) % Eos % (Auto) 0.3 L (0.8-7.0) Baso % (Auto) 0.2 (0.1-1.2) % Neut # (Auto) 6.68 H (1.78-5.38) K/mm3 Lymph # (Auto) 1.45 (1.32-3.57) K/mm3 [place] # (Auto) 0.80 (0.30-0.82) K/mm3 Eos # (Auto) 0.03 L (0.04-0.54) K/mm3 Baso # (Auto) 0.02 (0.01-0.08) K/mm3 Manual Slide Review Normal smear Sodium (136-145) mEq/L Potassium (3.5-5.1) mEq/L Chloride (98-107) mEq/L Carbon Dioxide (21-32) mEq/L Anion Gap (5-15) BUN (7-18) mg/dL Creatinine (0.7-1.3) mg/dL Est Cr Clr Drug Dosing mL/min Estimated GFR (MDRD) (>60) mL/min BUN/Creatinine Ratio (14-18) Glucose (83-115) mg/dL POC Glucose 137 H 138 H (83-110) mg/dL Calcium (8.5-10.1) mg/dL Magnesium (1.8-2.4) mg/dl Total Bilirubin (0.2-1.0) mg/dL AST (15-37) U/L ALT (16-63) U/L Alkaline Phosphatase (46-116) U/L C-Reactive Protein (<1.0) mg/dL Total Protein (6.4-8.2) g/dl Albumin (3.4-5.0) g/dl Globulin gm/dL Albumin/Globulin Ratio (1-2) 10/28/20 Range/Units 07:06 WBC (4.23-9.07) K/mm3 RBC (4.63-6.08) M/mm3 Hgb (13.7-17.5) gm/dl Hct (40.1-51.0) % MCV (79.0-92.2) fl MCH (25.7-32.2) pg MCHC (32.2-35.5) g/dl RDW Std Deviation (35.1-43.9) fL Plt Count (163-337) K/mm3 MPV (9.4-12.3) fl Neut % (Auto) (34.0-67.9) % Lymph % (Auto) (21.8-53.1) % [place] % (Auto) (5.3-12.2) % Eos % (Auto) (0.8-7.0) Baso % (Auto) (0.1-1.2) % Neut # (Auto) (1.78-5.38) K/mm3 Lymph # (Auto) (1.32-3.57) K/mm3 [place] # (Auto) (0.30-0.82) K/mm3 Eos # (Auto) (0.04-0.54) K/mm3 Baso # (Auto) (0.01-0.08) K/mm3 Manual Slide Review Sodium 139 (136-145) mEq/L Potassium 4.0 (3.5-5.1) mEq/L Chloride 102 (98-107) mEq/L Carbon Dioxide 29 (21-32) mEq/L Anion Gap 12.0 (5-15) BUN 20 H (7-18) mg/dL Creatinine 0.9 (0.7-1.3) mg/dL Est Cr Clr Drug Dosing 68.74 mL/min Estimated GFR (MDRD) > 60 (>60) mL/min BUN/Creatinine Ratio 22.2 H (14-18) Glucose 146 H (83-115) mg/dL POC Glucose (83-110) mg/dL Calcium 8.6 (8.5-10.1) mg/dL Magnesium 1.9 (1.8-2.4) mg/dl Total Bilirubin 0.5 (0.2-1.0) mg/dL AST 29 (15-37) U/L ALT 61 (16-63) U/L Alkaline Phosphatase 80 (46-116) U/L C-Reactive Protein 3.2 H* (<1.0) mg/dL Total Protein 6.2 L (6.4-8.2) g/dl Albumin 2.7 L (3.4-5.0) g/dl Globulin 3.5 gm/dL Albumin/Globulin Ratio 0.8 L (1-2) Julio C Results Last 24 Hours: Microbiology 10/24/20 19:30 Aerobic Blood Culture - Preliminary Blood - Venous - Lab Draw NO GROWTH AFTER 3 DAYS Anaerobic Blood Culture - Preliminary NO GROWTH AFTER 3 DAYS 10/24/20 19:25 Aerobic Blood Culture - Preliminary Blood - Venous NO GROWTH AFTER 3 DAYS Anaerobic Blood Culture - Preliminary NO GROWTH AFTER 3 DAYS Med Orders - Current: Current Medications Acetaminophen (Tylenol) 650 mg PO Q4H PRN PRN Reason: Pain (Mild 1-3)/fever Albuterol (Proventil Hfa) 0 gm INH Q4H PRN PRN Reason: Shortness of Breath Albuterol/Ipratropium (Duoneb 3.0-0.5 Mg/3 Ml) 3 ml NEB TIDRT [facility] Last Admin: 10/28/20 07:10 Dose: Not Given Documented by: Aspirin (Halfprin) 162 mg PO DAILY [facility] Last Admin: 10/27/20 08:21 Dose: 162 mg Documented by: Carvedilol (Coreg) 3.125 mg PO BID [facility] Last Admin: 10/27/20 22:32 Dose: 3.125 mg Documented by: Cholecalciferol (Vitamin D3) 5,000 unit PO DAILY [facility] Last Admin: 10/27/20 08:22 Dose: 5,000 unit Documented by: Dexamethasone (Dexamethasone) 6 mg PO DAILY [facility] Stop: 11/02/20 09:01 Last Admin: 10/27/20 08:19 Dose: 6 mg Documented by: Enoxaparin Sodium (Lovenox) 40 mg SUBCUT DAILY [facility] Last Admin: 10/27/20 08:30 Dose: 40 mg Documented by: Famotidine (Pepcid) 20 mg PO BID [facility] Last Admin: 10/27/20 22:33 Dose: 20 mg Documented by: Furosemide (Lasix) 40 mg PO DAILY [facility] Last Admin: 10/27/20 08:22 Dose: 40 mg Documented by: Gabapentin (Neurontin) 600 mg PO BID [facility] Last Admin: 10/27/20 22:32 Dose: 600 mg Documented by: Remdesivir 100 mg/ Sodium (Chloride) 100 mls @ 100 mls/hr IV Q24H [facility] Stop: 10/28/20 21:59 Last Admin: 10/27/20 22:34 Dose: 100 mls/hr Documented by: Insulin Glargine (Lantus) 10 unit SUBCUT DAILY [facility] Last Admin: 10/27/20 08:29 Dose: 10 units Documented by: Insulin Human Lispro (Humalog) 0 unit SUBCUT QIDACANDBED [facility]; Protocol Last Admin: 10/27/20 23:30 Dose: Not Given Documented by: Miscellaneous Information (Remove Patch) 1 ea TRDERM DAILY [facility] Last Admin: 10/27/20 11:25 Dose: Not Given Documented by: Nicotine (Habitrol) 21 mg TRDERM DAILY [facility] Last Admin: 10/27/20 08:31 Dose: Not Given Documented by: Ondansetron HCl (Zofran) 4 mg IV Q4H PRN PRN Reason: Nausea/Vomiting Oxybutynin Chloride (Oxybutynin) 5 mg PO BID [facility] Last Admin: 10/27/20 22:33 Dose: 5 mg Documented by: Oxycodone HCl (Oxycodone) 5 mg PO Q4H PRN PRN Reason: Pain (moderate 4-6) Simvastatin (Zocor) 20 mg PO DAILY [facility] Last Admin: 10/27/20 08:20 Dose: 20 mg Documented by: Sodium Chloride (Saline Flush) 10 ml FLUSH ASDIRECTED PRN PRN Reason: Keep Vein Open Last Admin: 10/24/20 18:42 Dose: 10 ml Documented by: Zinc Sulfate (Zincate) 220 mg PO DAILY [facility] Last Admin: 10/27/20 08:28 Dose: 220 mg Documented by: Discontinued Medications Albuterol/Ipratropium (Duoneb 3.0-0.5 Mg/3 Ml) 3 ml INH QID [facility] Last Admin: 10/27/20 08:31 Dose: 3 ml Documented by: Carvedilol (Coreg) 6.25 mg PO BIDMEALS [facility] Last Admin: 10/26/20 09:24 Dose: Not Given Documented by: Dexamethasone (Decadron) 6 mg IVPUSH ONETIME ONE Stop: 10/24/20 19:45 Last Admin: 10/24/20 20:11 Dose: 6 mg Documented by: Enalapril Maleate (Vasotec) 5 mg PO DAILY [facility] Last Admin: 10/25/20 11:00 Dose: 5 mg Documented by: Remdesivir 200 mg/ Sodium (Chloride) 250 mls @ 250 mls/hr IV ONETIME ONE Stop: 10/24/20 19:45 Last Admin: 10/24/20 20:13 Dose: 250 mls/hr Documented by: Influenza Virus Vaccine (Pharmacy To Dose - Influenza Vaccine) 1 each IM ONETIME ONE Stop: 10/24/20 23:09 Influenza Virus Vaccine (Fluzone High-Dose Quad ) 240 mcg IM .ONCE ONE Stop: 10/24/20 23:31 Nicotine (Habitrol) 14 mg TRDERM DAILY [facility] Oxybutynin Chloride (Oxybutynin) 5 mg PO BID [facility] Last Admin: 10/26/20 08:26 Dose: 5 mg Documented by: Sodium Chloride (Sodium Chloride) 1 gm PO BID [facility] Stop: 10/26/20 09:01 Last Admin: 10/26/20 08:28 Dose: 1 gm Documented by: - Exam Quality Assessment: Supplemental Oxygen (4L), DVT Prophylaxis. No: Urine Catheter General: Alert, Oriented, Cooperative, No Acute Distress HEENT: Pupils Equal, Pupils Reactive, Mucous Membr. Moist/[place] Neck: Supple, Trachea Midline Lungs: Normal Respiratory Effort, Decreased Breath Sounds, Crackles Cardiovascular: Regular Rate, Regular Rhythm GI/Abdominal Exam: Normal Bowel Sounds, Soft, Non-Tender, No Distention (Male) Exam: Deferred Back Exam: Normal Inspection, Full Range of Motion Extremities: Normal Inspection, Normal Range of Motion, Non-Tender, No Pedal Edema, Normal Capillary Refill Skin: Warm, Dry, Intact Neurological: No New Focal Deficit Psy/Mental Status: Alert Sepsis Event Note - Evaluation Sepsis Screening Result: No Definite Risk - Focused Exam Vital Signs: Vital Signs Temp Pulse Resp BP Pulse Ox Pulse Ox 10/28/20 05:37 97.9 F 53 L 20 143/63 H 93 L 10/28/20 00:18 97.5 F 58 L 18 138/57 L 92 L 10/27/20 22:32 62 134/82 10/27/20 22:10 92 L 10/27/20 20:41 98.6 F 55 L 20 134/63 95 - Problem List & Annotations (1) COVID-19 SNOMED Code(s): 653625334 Code(s): U07.1 - COVID-19 Status: Acute Priority: High Current Visit: Yes (2) Hypoxia SNOMED Code(s): 790251215 Code(s): R09.02 - HYPOXEMIA Status: Acute Priority: High Current Visit: Yes (3) HLD (hyperlipidemia) SNOMED Code(s): 86792469 Code(s): E78.5 - HYPERLIPIDEMIA, UNSPECIFIED Status: Chronic Priority: Low Current Visit: No (4) HTN (hypertension) SNOMED Code(s): 67200470 Code(s): I10 - ESSENTIAL (PRIMARY) HYPERTENSION Status: Chronic Priority: Medium Current Visit: No Qualifiers: Hypertension type: unspecified Qualified Code(s): I10 - Essential (primary) hypertension (5) Arthritis SNOMED Code(s): 6217496 Code(s): M19.90 - UNSPECIFIED OSTEOARTHRITIS, UNSPECIFIED SITE Status: Chronic Priority: Low Current Visit: No (6) Type II diabetes mellitus SNOMED Code(s): 58113331 Code(s): E11.9 - TYPE 2 DIABETES MELLITUS WITHOUT COMPLICATIONS Status: Chronic Priority: Medium Current Visit: Yes Qualifiers: Diabetes mellitus termite renewal inspector insulin use: without termite renewal inspector use Diabetes mellitus complication status: with other specified complication Qualified Code(s): E11.69 - Type 2 diabetes mellitus with other specified complication (7) Smoker SNOMED Code(s): 76217714 Code(s): F17.200 - NICOTINE DEPENDENCE, UNSPECIFIED, UNCOMPLICATED Status: Chronic Priority: Medium Current Visit: Yes - Problem List Review Problem List Initiated/Reviewed/Updated: Yes - My Orders Last 24 Hours: My Active Orders 10/29/20 05:11 CBC WITH AUTO DIFF [HEME] AM CMP [COMPREHENSIVE METABOLIC PN,CMP] [CHEM] AM CRP [C-REACTIVE PROTEIN] [CHEM] AM MAGNESIUM [CHEM] AM 10/29/20 09:01 DD [D-DIMER QUANTITATIVE] [COAG] Q48H - Assessment Assessment:: Assessment - day of admission 10/25/20 (admitted overnight 10/24/20) * 79 yo male presents to our ED on 10/24/20 with SOB * was COVID positive - swabbed Wednesday and returned positive on 10/23/19 * Symptoms for 6-7 days before arrival at ED * 50 year smoker - 1.5 packs/day; Quit 6 days before admission * Saturations of 85-86% on room air in ED * Hx/o HLD, HTN, Arthritis, Type II DM, S/P Carotid Endarterectomy * 12-Lead EKG in ED shows NSR at 77BPM with LAD, RBBB, Moderately prolonged QTc, No ST changes * Labs: * WBC 7.11-->5.10 * Hgb 16.7-->15.1 * Platelet 120-->131 * Neutrophils 62%-->74.9% * Band neutrophils 2% * INR 0.99 * APTT 32.1 * D-Dimer 0.78 * CRP 5.8 * Sodium 132-->130 * Potassium 4.3-->4.1 * Chloride 94-->96 * Anion gap 14.3-->13.1 * BUN 28-->28 * Creatinine 1.2-->1.0 * GFR 59--> Greater than 60 * Glucose 188-->280 * Magnesium 2.0 * Ferritin 1477 * Total Bilirubin 0.8-->0.5 * AST 37-->30 * ALT 59-->48 * Alk phos 78-->63 * Troponin 0.028 * CRP 5.8-->6.0 * Pro-BNP 623 * Albumin 3.3-->2.8 * Lactic Acid 1.5 * Influenza A/B negative * SARS-CoV-2 RNA positive * Vitamin D 74.4 * ABG: Rt. Radial, pH 7.44, pCO2 38.2, pO2 46.0, HCO3 25.6, O2 saturation 83.1, Base excess 2.1 * CXR shows healing left sided rib fracture, nothing acute * Given 6mg dexamethasone and started on 200mg Remdesivir in ED 10/26/2020 79-year-old male with COVID-19 and viral pneumonitis. * Patient is clearly improving but very stable. * Day 3 of dexamethasone and remdesivir. * Oxygen supplementation stable at 4 L via nasal cannula * Patient's peak of illness should be in the next couple of days. This should help determine if he is going to continue to get worse, stabilize, or improve. Plan * No significant change from above plan. 10/27/2020 79-year-old male with COVID-19 viral pneumonia. Multiple other chronic medical problems see above. Patient has had no significant change in his condition over the last 24 hours. He continues on 4 L via nasal cannula. His white count continues to be normal as well as his hemoglobin. Sodium did increase to normal at 138 which is reassuring. C-reactive protein is down to 3.9. Unfortunately, albumin continues to drop and is now at 2.5. This is very consistent for COVID-19 infection. Patient's appetite is good and he is eating 80 to 100% of his meals. He is currently on day 4 of dexamethasone and remdesivir. Blood pressures have been good ranging from 108 systolic up to 152 systolic. Glucose has been more labile ranging from 133 up to 328. Plan: Continue with current treatment of dexamethasone and remdesivir. Try to wean to 2 L before discharging home, but that may not be possible secondary to his history of smoking. 10/28/2020 * Remains on 4L via NC * Day 5 of dexamethasone and remdesivier (completes remdesivir today) * Labs remain grossly unchanged. Albumin up to 2.7 * Continues to utilize IS and acapella * Pt/OT working with patient * Continue to attempt to wean patient from O2. * Blood glucose 133-328. * Continue current treatment plan - Plan Plan:: COVID-19 Hypoxia * Continue dexamethasone 6mg - Day 02/10 * Continue Remdesivir 200mg - Day 02/05 * IS/Acapella * RT consultation * PT/OT * CM/SW consult * O2 as needed - goal saturations 87-94% * Lovenox 40mg daily * Supplement zinc * Supplement vitamin D * Telemetry/continuous pulse oximeter * Airborne/Contact precautions * Monitor D-Dimer Q48 hr * Follow labs Hyponatremia, Resolved Hypoalbuminemia * Avoid IV fluids due to COVID-19 * [employer] consultation Type II diabetes mellitus * Hold PO medications * Blood glucose checks QID AC and Bedtime * Medium intensity sliding scale insulin * Diabetic diet Smoker * Nicotine patches * Cessation counseling * Offer nicotine patches on discharge HLD (hyperlipidemia) HTN (hypertension) Arthritis * Reconcile/review home medications * Monitor labs/vital signs Code status: Full Code PCP: Dr. Nelson DVT Prophylaxis: Lovenox Social: Patient lives with his who is also COVID-19 positive Disposition: Patient admitted for treatment of COVID-19 and hypoxia. LOS >96 HRS due to COVID-19 Treatment, continued hypoxia. <Fran Galindo - Last Filed: 10/28/20 13:50> - Patient Data Vitals - Most Recent: Last Vital Signs Temp 36.6 C 10/28/20 11:04 Pulse 62 10/28/20 11:04 Resp 18 10/28/20 11:04 BP 121/55 L 10/28/20 11:04 Pulse Ox 91 L 10/28/20 11:04 I&O - Last 24 Hours: Intake & Output 10/27/20 10/28/20 10/28/20 22:59 06:59 14:59 Intake Total 1020 500 120 Output Total 775 Balance 1020 -275 120 Lab Results Last 24 Hours: Laboratory Results - last 24 hr 10/27/20 10/27/20 10/27/20 Range/Units 06:47 15:55 22:42 WBC (4.23-9.07) K/mm3 RBC (4.63-6.08) M/mm3 Hgb (13.7-17.5) gm/dl Hct (40.1-51.0) % MCV (79.0-92.2) fl MCH (25.7-32.2) pg MCHC (32.2-35.5) g/dl RDW Std Deviation (35.1-43.9) fL Plt Count (163-337) K/mm3 MPV (9.4-12.3) fl Neut % (Auto) (34.0-67.9) % Lymph % (Auto) (21.8-53.1) % [place] % (Auto) (5.3-12.2) % Eos % (Auto) (0.8-7.0) Baso % (Auto) (0.1-1.2) % Neut # (Auto) (1.78-5.38) K/mm3 Lymph # (Auto) (1.32-3.57) K/mm3 [place] # (Auto) (0.30-0.82) K/mm3 Eos # (Auto) (0.04-0.54) K/mm3 Baso # (Auto) (0.01-0.08) K/mm3 Manual Slide Review Sodium (136-145) mEq/L Potassium (3.5-5.1) mEq/L Chloride (98-107) mEq/L Carbon Dioxide (21-32) mEq/L Anion Gap (5-15) BUN (7-18) mg/dL Creatinine (0.7-1.3) mg/dL Est Cr Clr Drug Dosing mL/min Estimated GFR (MDRD) (>60) mL/min BUN/Creatinine Ratio (14-18) Glucose (83-115) mg/dL POC Glucose 133 H 328 H 137 H (83-110) mg/dL Calcium (8.5-10.1) mg/dL Magnesium (1.8-2.4) mg/dl Total Bilirubin (0.2-1.0) mg/dL AST (15-37) U/L ALT (16-63) U/L Alkaline Phosphatase (46-116) U/L C-Reactive Protein (<1.0) mg/dL Total Protein (6.4-8.2) g/dl Albumin (3.4-5.0) g/dl Globulin gm/dL Albumin/Globulin Ratio (1-2) 10/28/20 10/28/20 10/28/20 Range/Units 06:17 07:06 07:06 WBC 9.05 (4.23-9.07) K/mm3 RBC 5.17 (4.63-6.08) M/mm3 Hgb 15.8 (13.7-17.5) gm/dl Hct 47.2 (40.1-51.0) % MCV 91.3 (79.0-92.2) fl MCH 30.6 (25.7-32.2) pg MCHC 33.5 (32.2-35.5) g/dl RDW Std Deviation 49.0 H (35.1-43.9) fL Plt Count 195 (163-337) K/mm3 MPV 10.7 (9.4-12.3) fl Neut % (Auto) 73.9 H (34.0-67.9) % Lymph % (Auto) 16.0 L (21.8-53.1) % [place] % (Auto) 8.8 (5.3-12.2) % Eos % (Auto) 0.3 L (0.8-7.0) Baso % (Auto) 0.2 (0.1-1.2) % Neut # (Auto) 6.68 H (1.78-5.38) K/mm3 Lymph # (Auto) 1.45 (1.32-3.57) K/mm3 [place] # (Auto) 0.80 (0.30-0.82) K/mm3 Eos # (Auto) 0.03 L (0.04-0.54) K/mm3 Baso # (Auto) 0.02 (0.01-0.08) K/mm3 Manual Slide Review Normal smear Sodium 139 (136-145) mEq/L Potassium 4.0 (3.5-5.1) mEq/L Chloride 102 (98-107) mEq/L Carbon Dioxide 29 (21-32) mEq/L Anion Gap 12.0 (5-15) BUN 20 H (7-18) mg/dL Creatinine 0.9 (0.7-1.3) mg/dL Est Cr Clr Drug Dosing 68.74 mL/min Estimated GFR (MDRD) > 60 (>60) mL/min BUN/Creatinine Ratio 22.2 H (14-18) Glucose 146 H (83-115) mg/dL POC Glucose 138 H (83-110) mg/dL Calcium 8.6 (8.5-10.1) mg/dL Magnesium 1.9 (1.8-2.4) mg/dl Total Bilirubin 0.5 (0.2-1.0) mg/dL AST 29 (15-37) U/L ALT 61 (16-63) U/L Alkaline Phosphatase 80 (46-116) U/L C-Reactive Protein 3.2 H* (<1.0) mg/dL Total Protein 6.2 L (6.4-8.2) g/dl Albumin 2.7 L (3.4-5.0) g/dl Globulin 3.5 gm/dL Albumin/Globulin Ratio 0.8 L (1-2) Julio C Results Last 24 Hours: Microbiology 10/24/20 19:30 Aerobic Blood Culture - Preliminary Blood - Venous - Lab Draw NO GROWTH AFTER 3 DAYS Anaerobic Blood Culture - Preliminary NO GROWTH AFTER 3 DAYS 10/24/20 19:25 Aerobic Blood Culture - Preliminary Blood - Venous NO GROWTH AFTER 3 DAYS Anaerobic Blood Culture - Preliminary NO GROWTH AFTER 3 DAYS Med Orders - Current: Current Medications Acetaminophen (Tylenol) 650 mg PO Q4H PRN PRN Reason: Pain (Mild 1-3)/fever Albuterol (Proventil Hfa) 0 gm INH Q4H PRN PRN Reason: Shortness of Breath Albuterol/Ipratropium (Duoneb 3.0-0.5 Mg/3 Ml) 3 ml NEB TIDRT [facility] Last Admin: 10/28/20 07:10 Dose: Not Given Documented by: Aspirin (Halfprin) 162 mg PO DAILY [facility] Last Admin: 10/28/20 09:19 Dose: 162 mg Documented by: Carvedilol (Coreg) 3.125 mg PO BID [facility] Last Admin: 10/28/20 09:16 Dose: 3.125 mg Documented by: Cholecalciferol (Vitamin D3) 5,000 unit PO DAILY [facility] Last Admin: 10/28/20 09:19 Dose: 5,000 unit Documented by: Dexamethasone (Dexamethasone) 6 mg PO DAILY [facility] Stop: 11/02/20 09:01 Last Admin: 10/28/20 09:18 Dose: 6 mg Documented by: Enoxaparin Sodium (Lovenox) 40 mg SUBCUT DAILY [facility] Last Admin: 10/28/20 09:20 Dose: 40 mg Documented by: Famotidine (Pepcid) 20 mg PO BID [facility] Last Admin: 10/28/20 09:17 Dose: 20 mg Documented by: Furosemide (Lasix) 40 mg PO DAILY [facility] Last Admin: 10/28/20 09:16 Dose: 40 mg Documented by: Gabapentin (Neurontin) 600 mg PO BID [facility] Last Admin: 10/28/20 09:16 Dose: 600 mg Documented by: Remdesivir 100 mg/ Sodium (Chloride) 100 mls @ 100 mls/hr IV Q24H [facility] Stop: 10/28/20 21:59 Last Admin: 10/27/20 22:34 Dose: 100 mls/hr Documented by: Insulin Glargine (Lantus) 10 unit SUBCUT DAILY [facility] Last Admin: 10/28/20 09:19 Dose: 10 units Documented by: Insulin Human Lispro (Humalog) 0 unit SUBCUT QIDACANDBED [facility]; Protocol Last Admin: 10/28/20 07:56 Dose: Not Given Documented by: Miscellaneous Information (Remove Patch) 1 ea TRDERM DAILY [facility] Last Admin: 10/28/20 09:20 Dose: Not Given Documented by: Nicotine (Habitrol) 21 mg TRDERM DAILY [facility] Last Admin: 10/28/20 09:19 Dose: Not Given Documented by: Ondansetron HCl (Zofran) 4 mg IV Q4H PRN PRN Reason: Nausea/Vomiting Oxybutynin Chloride (Oxybutynin) 5 mg PO BID [facility] Last Admin: 10/28/20 09:18 Dose: 5 mg Documented by: Oxycodone HCl (Oxycodone) 5 mg PO Q4H PRN PRN Reason: Pain (moderate 4-6) Simvastatin (Zocor) 20 mg PO DAILY [facility] Last Admin: 10/28/20 09:17 Dose: 20 mg Documented by: Sodium Chloride (Saline Flush) 10 ml FLUSH ASDIRECTED PRN PRN Reason: Keep Vein Open Last Admin: 10/24/20 18:42 Dose: 10 ml Documented by: Zinc Sulfate (Zincate) 220 mg PO DAILY [facility] Last Admin: 10/28/20 09:17 Dose: 220 mg Documented by: Discontinued Medications Albuterol/Ipratropium (Duoneb 3.0-0.5 Mg/3 Ml) 3 ml INH QID [facility] Last Admin: 10/27/20 08:31 Dose: 3 ml Documented by: Carvedilol (Coreg) 6.25 mg PO BIDMEALS [facility] Last Admin: 10/26/20 09:24 Dose: Not Given Documented by: Dexamethasone (Decadron) 6 mg IVPUSH ONETIME ONE Stop: 10/24/20 19:45 Last Admin: 10/24/20 20:11 Dose: 6 mg Documented by: Enalapril Maleate (Vasotec) 5 mg PO DAILY [facility] Last Admin: 10/25/20 11:00 Dose: 5 mg Documented by: Remdesivir 200 mg/ Sodium (Chloride) 250 mls @ 250 mls/hr IV ONETIME ONE Stop: 10/24/20 19:45 Last Admin: 10/24/20 20:13 Dose: 250 mls/hr Documented by: Influenza Virus Vaccine (Pharmacy To Dose - Influenza Vaccine) 1 each IM ONETIME ONE Stop: 10/24/20 23:09 Influenza Virus Vaccine (Fluzone High-Dose Quad ) 240 mcg IM .ONCE ONE Stop: 10/24/20 23:31 Nicotine (Habitrol) 14 mg TRDERM DAILY [facility] Oxybutynin Chloride (Oxybutynin) 5 mg PO BID [facility] Last Admin: 10/26/20 08:26 Dose: 5 mg Documented by: Sodium Chloride (Sodium Chloride) 1 gm PO BID [facility] Stop: 10/26/20 09:01 Last Admin: 10/26/20 08:28 Dose: 1 gm Documented by: Sepsis Event Note - Focused Exam Vital Signs: Vital Signs Temp Pulse Resp BP Pulse Ox 10/28/20 11:04 36.6 C 62 18 121/55 L 91 L 10/28/20 09:16 62 138/63 10/28/20 07:27 36.7 C 58 L 20 138/63 100 10/28/20 05:37 36.6 C 53 L 20 143/63 H 93 L - Plan Plan:: I have seen and examined the patient independently of Amor Hathaway PA-C. I have reviewed the orders and agree with the plan of care as outlined by him. I have discussed the case with him. Please see orders.
[2020-10-28] MEDS: Carvedilol 3.125 MG Tab PO SCH ×2 (09:16→20:38)
[2020-10-28] MEDS: Furosemide 40 MG Tab PO SCH (09:16)
[2020-10-28] MEDS: Gabapentin 600 MG Tab PO SCH ×2 (09:16→20:39)
[2020-10-28] MEDS: Zinc Sulfate 220 MG Cap PO SCH (09:17)
[2020-10-28] MEDS: Famotidine 20 MG Tab PO SCH ×2 (09:17→20:39)
[2020-10-28] MEDS: Simvastatin 20 MG Tab PO SCH (09:17)
[2020-10-28] MEDS: Oxybutynin 5 MG Tab PO SCH ×2 (09:18→20:40)
[2020-10-28] MEDS: Dexamethasone 4 MG Tab PO SCH (09:18)
[2020-10-28] MEDS: Insulin Glarg,Human.Rec.Analog 100 Unit/ML SUBCUT SCH (09:19)
[2020-10-28] MEDS: Cholecalciferol (Vitamin D3) 5,000 UNIT Cap PO SCH (09:19)
[2020-10-28] MEDS: Nicotine 21 MG/24 Hr Patch TRDERM SCH (09:19)
[2020-10-28] MEDS: Aspirin 81 MG Tab.EC PO SCH (09:19)
[2020-10-28] MEDS: Enoxaparin 40 MG/0.4 ML Syringe SUBCUT SCH (09:20)
[2020-10-28] MEDS: REMDESIVIR 100 MG in Sodium Chloride 0.9% 100 ML IV SCH (20:41)
[2020-10-29] MEDS: Albuterol/Ipratropium 3.0-0.5 MG/3 ML Neb Soln NEB SCH ×3 (05:54→20:15)
--- NOTE | 2020-10-29 07:18 | PCM.PN ---
<Amor Hathaway - Last Filed: 10/29/20 13:07> - General Info Date of Service: 10/29/20 Admission Dx/Problem (Free Text): Admission Diagnosis/Problem Admission Diagnosis/Problem Hypoxia Subjective Update: In to see Davon. He reports he feels pretty good but is still short of breath. RT did turn the patient down to 1 L of oxygen and they are monitoring this. He may require oxygen at discharge. Given as his oxygen saturations are still variable and he does have a at home with Johnathan who remains short of breath we will keep him today and reassess in the morning how he is doing. Labs remained stable. Likely discharge tomorrow, 10/30/2020. Functional Status: Reports: Pain Controlled, Tolerating Diet, Ambulating, Urinating, Incentive Spirometry, Other (Acapella ). Denies: New Symptoms - Review of Systems General: Reports: Weakness. Denies: Fever, Fatigue, Malaise, Chills HEENT: Reports: No Symptoms. Denies: Headaches, Sore Throat Pulmonary: Reports: Shortness of Breath, Cough. Denies: Pleuritic Chest Pain, Sputum, Wheezing Cardiovascular: Reports: No Symptoms, Dyspnea on Exertion. Denies: Chest Pain, Palpitations, Edema, Lightheadedness Gastrointestinal: Reports: No Symptoms. Denies: Abdominal Pain, Constipation, Diarrhea, Nausea, Vomiting Genitourinary: Reports: No Symptoms. Denies: Pain Musculoskeletal: Reports: No Symptoms Skin: Reports: No Symptoms. Denies: Cyanosis Neurological: Reports: No Symptoms. Denies: Confusion, Pre-Existing Deficit, Difficulty Walking, Weakness, Gait Disturbance Psychiatric: Reports: No Symptoms - Patient Data Vitals - Most Recent: Last Vital Signs Temp 97.9 F 10/28/20 11:04 Pulse 51 L 10/29/20 04:36 Resp 18 10/29/20 04:36 BP 149/75 H 10/29/20 04:36 Pulse Ox 91 L 10/29/20 05:56 Weight - Most Recent: 75.977 kg I&O - Last 24 Hours: Intake & Output 10/28/20 10/29/20 10/29/20 22:59 06:59 14:59 Intake Total 600 800 Output Total 375 975 Balance 225 -175 Lab Results Last 24 Hours: Laboratory Results - last 24 hr 10/28/20 10/28/20 10/28/20 Range/Units 07:06 07:06 11:02 WBC 9.05 (4.23-9.07) K/mm3 RBC 5.17 (4.63-6.08) M/mm3 Hgb 15.8 (13.7-17.5) gm/dl Hct 47.2 (40.1-51.0) % MCV 91.3 (79.0-92.2) fl MCH 30.6 (25.7-32.2) pg MCHC 33.5 (32.2-35.5) g/dl RDW Std Deviation 49.0 H (35.1-43.9) fL Plt Count 195 (163-337) K/mm3 MPV 10.7 (9.4-12.3) fl Neut % (Auto) 73.9 H (34.0-67.9) % Lymph % (Auto) 16.0 L (21.8-53.1) % Hanson % (Auto) 8.8 (5.3-12.2) % Eos % (Auto) 0.3 L (0.8-7.0) Baso % (Auto) 0.2 (0.1-1.2) % Neut # (Auto) 6.68 H (1.78-5.38) K/mm3 Lymph # (Auto) 1.45 (1.32-3.57) K/mm3 Hanson # (Auto) 0.80 (0.30-0.82) K/mm3 Eos # (Auto) 0.03 L (0.04-0.54) K/mm3 Baso # (Auto) 0.02 (0.01-0.08) K/mm3 Manual Slide Review Normal smear D-Dimer, Quantitative (0.19-0.50) mg/L Sodium 139 (136-145) mEq/L Potassium 4.0 (3.5-5.1) mEq/L Chloride 102 (98-107) mEq/L Carbon Dioxide 29 (21-32) mEq/L Anion Gap 12.0 (5-15) BUN 20 H (7-18) mg/dL Creatinine 0.9 (0.7-1.3) mg/dL Est Cr Clr Drug Dosing 68.74 mL/min Estimated GFR (MDRD) > 60 (>60) mL/min BUN/Creatinine Ratio 22.2 H (14-18) Glucose 146 H (83-115) mg/dL POC Glucose 191 H (83-110) mg/dL Calcium 8.6 (8.5-10.1) mg/dL Magnesium 1.9 (1.8-2.4) mg/dl Total Bilirubin 0.5 (0.2-1.0) mg/dL AST 29 (15-37) U/L ALT 61 (16-63) U/L Alkaline Phosphatase 80 (46-116) U/L C-Reactive Protein 3.2 H* (<1.0) mg/dL Total Protein 6.2 L (6.4-8.2) g/dl Albumin 2.7 L (3.4-5.0) g/dl Globulin 3.5 gm/dL Albumin/Globulin Ratio 0.8 L (1-2) 10/28/20 10/28/20 10/29/20 Range/Units 17:40 21:14 04:35 WBC 7.16 (4.23-9.07) K/mm3 RBC 4.96 (4.63-6.08) M/mm3 Hgb 15.3 (13.7-17.5) gm/dl Hct 44.9 (40.1-51.0) % MCV 90.5 (79.0-92.2) fl MCH 30.8 (25.7-32.2) pg MCHC 34.1 (32.2-35.5) g/dl RDW Std Deviation 48.2 H (35.1-43.9) fL Plt Count 222 (163-337) K/mm3 MPV 10.6 (9.4-12.3) fl Neut % (Auto) 72.6 H (34.0-67.9) % Lymph % (Auto) 16.1 L (21.8-53.1) % Hanson % (Auto) 9.9 (5.3-12.2) % Eos % (Auto) 0.1 L (0.8-7.0) Baso % (Auto) 0.3 (0.1-1.2) % Neut # (Auto) 5.20 (1.78-5.38) K/mm3 Lymph # (Auto) 1.15 L (1.32-3.57) K/mm3 Hanson # (Auto) 0.71 (0.30-0.82) K/mm3 Eos # (Auto) 0.01 L (0.04-0.54) K/mm3 Baso # (Auto) 0.02 (0.01-0.08) K/mm3 Manual Slide Review Normal smear D-Dimer, Quantitative (0.19-0.50) mg/L Sodium (136-145) mEq/L Potassium (3.5-5.1) mEq/L Chloride (98-107) mEq/L Carbon Dioxide (21-32) mEq/L Anion Gap (5-15) BUN (7-18) mg/dL Creatinine (0.7-1.3) mg/dL Est Cr Clr Drug Dosing mL/min Estimated GFR (MDRD) (>60) mL/min BUN/Creatinine Ratio (14-18) Glucose (83-115) mg/dL POC Glucose 393 H 378 H (83-110) mg/dL Calcium (8.5-10.1) mg/dL Magnesium (1.8-2.4) mg/dl Total Bilirubin (0.2-1.0) mg/dL AST (15-37) U/L ALT (16-63) U/L Alkaline Phosphatase (46-116) U/L C-Reactive Protein (<1.0) mg/dL Total Protein (6.4-8.2) g/dl Albumin (3.4-5.0) g/dl Globulin gm/dL Albumin/Globulin Ratio (1-2) 10/29/20 10/29/20 10/29/20 Range/Units 04:35 04:35 06:03 WBC (4.23-9.07) K/mm3 RBC (4.63-6.08) M/mm3 Hgb (13.7-17.5) gm/dl Hct (40.1-51.0) % MCV (79.0-92.2) fl MCH (25.7-32.2) pg MCHC (32.2-35.5) g/dl RDW Std Deviation (35.1-43.9) fL Plt Count (163-337) K/mm3 MPV (9.4-12.3) fl Neut % (Auto) (34.0-67.9) % Lymph % (Auto) (21.8-53.1) % Hanson % (Auto) (5.3-12.2) % Eos % (Auto) (0.8-7.0) Baso % (Auto) (0.1-1.2) % Neut # (Auto) (1.78-5.38) K/mm3 Lymph # (Auto) (1.32-3.57) K/mm3 Hanson # (Auto) (0.30-0.82) K/mm3 Eos # (Auto) (0.04-0.54) K/mm3 Baso # (Auto) (0.01-0.08) K/mm3 Manual Slide Review D-Dimer, Quantitative 0.71 H (0.19-0.50) mg/L Sodium 139 (136-145) mEq/L Potassium 4.0 (3.5-5.1) mEq/L Chloride 103 (98-107) mEq/L Carbon Dioxide 28 (21-32) mEq/L Anion Gap 12.0 (5-15) BUN 26 H (7-18) mg/dL Creatinine 0.8 (0.7-1.3) mg/dL Est Cr Clr Drug Dosing 77.33 mL/min Estimated GFR (MDRD) > 60 (>60) mL/min BUN/Creatinine Ratio 32.5 H (14-18) Glucose 110 (83-115) mg/dL POC Glucose 123 H (83-110) mg/dL Calcium 8.6 (8.5-10.1) mg/dL Magnesium 1.9 (1.8-2.4) mg/dl Total Bilirubin 0.5 (0.2-1.0) mg/dL AST 34 (15-37) U/L ALT 69 H (16-63) U/L Alkaline Phosphatase 83 (46-116) U/L C-Reactive Protein 4.2 H* (<1.0) mg/dL Total Protein 5.9 L (6.4-8.2) g/dl Albumin 2.5 L (3.4-5.0) g/dl Globulin 3.4 gm/dL Albumin/Globulin Ratio 0.7 L (1-2) Julio C Results Last 24 Hours: Microbiology 10/24/20 19:30 Aerobic Blood Culture - Preliminary Blood - Venous - Lab Draw NO GROWTH AFTER 4 DAYS Anaerobic Blood Culture - Preliminary NO GROWTH AFTER 4 DAYS 10/24/20 19:25 Aerobic Blood Culture - Preliminary Blood - Venous NO GROWTH AFTER 4 DAYS Anaerobic Blood Culture - Preliminary NO GROWTH AFTER 4 DAYS Med Orders - Current: Current Medications Acetaminophen (Tylenol) 650 mg PO Q4H PRN PRN Reason: Pain (Mild 1-3)/fever Last Admin: 10/28/20 14:21 Dose: 650 mg Documented by: Albuterol (Proventil Hfa) 0 gm INH Q4H PRN PRN Reason: Shortness of Breath Albuterol/Ipratropium (Duoneb 3.0-0.5 Mg/3 Ml) 3 ml NEB TIDRT [facility] Last Admin: 10/29/20 05:54 Dose: 3 ml Documented by: Aspirin (Halfprin) 162 mg PO DAILY [facility] Last Admin: 10/28/20 09:19 Dose: 162 mg Documented by: Carvedilol (Coreg) 3.125 mg PO BID [facility] Last Admin: 10/28/20 20:38 Dose: 3.125 mg Documented by: Cholecalciferol (Vitamin D3) 5,000 unit PO DAILY [facility] Last Admin: 10/28/20 09:19 Dose: 5,000 unit Documented by: Dexamethasone (Dexamethasone) 6 mg PO DAILY [facility] Stop: 11/02/20 09:01 Last Admin: 10/28/20 09:18 Dose: 6 mg Documented by: Enoxaparin Sodium (Lovenox) 40 mg SUBCUT DAILY [facility] Last Admin: 10/28/20 09:20 Dose: 40 mg Documented by: Famotidine (Pepcid) 20 mg PO BID [facility] Last Admin: 10/28/20 20:39 Dose: 20 mg Documented by: Furosemide (Lasix) 40 mg PO DAILY [facility] Last Admin: 10/28/20 09:16 Dose: 40 mg Documented by: Gabapentin (Neurontin) 600 mg PO BID [facility] Last Admin: 10/28/20 20:39 Dose: 600 mg Documented by: Insulin Glargine (Lantus) 10 unit SUBCUT DAILY [facility] Last Admin: 10/28/20 09:19 Dose: 10 units Documented by: Insulin Human Lispro (Humalog) 0 unit SUBCUT QIDACANDBED [facility]; Protocol Last Admin: 10/28/20 22:02 Dose: 10 units Documented by: Magnesium Hydroxide (Milk Of Magnesia) 30 ml PO ONETIME ONE Stop: 10/29/20 09:01 Miscellaneous Information (Remove Patch) 1 ea TRDERM DAILY [facility] Last Admin: 10/28/20 09:20 Dose: Not Given Documented by: Nicotine (Habitrol) 21 mg TRDERM DAILY [facility] Last Admin: 10/28/20 09:19 Dose: Not Given Documented by: Ondansetron HCl (Zofran) 4 mg IV Q4H PRN PRN Reason: Nausea/Vomiting Oxybutynin Chloride (Oxybutynin) 5 mg PO BID [facility] Last Admin: 10/28/20 20:40 Dose: 5 mg Documented by: Oxycodone HCl (Oxycodone) 5 mg PO Q4H PRN PRN Reason: Pain (moderate 4-6) Simvastatin (Zocor) 20 mg PO DAILY [facility] Last Admin: 10/28/20 09:17 Dose: 20 mg Documented by: Sodium Chloride (Saline Flush) 10 ml FLUSH ASDIRECTED PRN PRN Reason: Keep Vein Open Last Admin: 10/24/20 18:42 Dose: 10 ml Documented by: Zinc Sulfate (Zincate) 220 mg PO DAILY [facility] Last Admin: 10/28/20 09:17 Dose: 220 mg Documented by: Discontinued Medications Albuterol/Ipratropium (Duoneb 3.0-0.5 Mg/3 Ml) 3 ml INH QID [facility] Last Admin: 10/27/20 08:31 Dose: 3 ml Documented by: Carvedilol (Coreg) 6.25 mg PO BIDMEALS [facility] Last Admin: 10/26/20 09:24 Dose: Not Given Documented by: Dexamethasone (Decadron) 6 mg IVPUSH ONETIME ONE Stop: 10/24/20 19:45 Last Admin: 10/24/20 20:11 Dose: 6 mg Documented by: Enalapril Maleate (Vasotec) 5 mg PO DAILY [facility] Last Admin: 10/25/20 11:00 Dose: 5 mg Documented by: Remdesivir 200 mg/ Sodium (Chloride) 250 mls @ 250 mls/hr IV ONETIME ONE Stop: 10/24/20 19:45 Last Admin: 10/24/20 20:13 Dose: 250 mls/hr Documented by: Remdesivir 100 mg/ Sodium (Chloride) 100 mls @ 100 mls/hr IV Q24H [facility] Stop: 10/28/20 21:59 Last Admin: 10/28/20 20:41 Dose: 100 mls/hr Documented by: Influenza Virus Vaccine (Pharmacy To Dose - Influenza Vaccine) 1 each IM ONETIME ONE Stop: 10/24/20 23:09 Influenza Virus Vaccine (Fluzone High-Dose Quad ) 240 mcg IM .ONCE ONE Stop: 10/24/20 23:31 Nicotine (Habitrol) 14 mg TRDERM DAILY [facility] Oxybutynin Chloride (Oxybutynin) 5 mg PO BID [facility] Last Admin: 10/26/20 08:26 Dose: 5 mg Documented by: Sodium Chloride (Sodium Chloride) 1 gm PO BID [facility] Stop: 10/26/20 09:01 Last Admin: 10/26/20 08:28 Dose: 1 gm Documented by: - Exam Quality Assessment: Supplemental Oxygen (1L ), DVT Prophylaxis. No: Urine Catheter General: Alert, Oriented, Cooperative, No Acute Distress HEENT: Pupils Equal, Pupils Reactive, Mucous Membr. Moist/[place]ue Neck: Supple, Trachea Midline Lungs: Normal Respiratory Effort, Decreased Breath Sounds Cardiovascular: Regular Rate, Regular Rhythm GI/Abdominal Exam: Normal Bowel Sounds, Soft, Non-Tender, No Distention (Male) Exam: Deferred Back Exam: Normal Inspection, Full Range of Motion Extremities: Normal Inspection, Normal Range of Motion, Non-Tender, No Pedal Edema, Normal Capillary Refill Skin: Warm, Dry, Intact Neurological: No New Focal Deficit Psy/Mental Status: Alert, Normal Affect, Normal Mood Sepsis Event Note - Evaluation Sepsis Screening Result: No Definite Risk - Focused Exam Vital Signs: Vital Signs Pulse Resp BP Pulse Ox Pulse Ox 10/29/20 05:56 91 L 10/29/20 04:36 51 L 18 149/75 H 92 L 10/28/20 20:38 61 117/50 L 90 L 10/28/20 20:15 92 L 10/28/20 20:02 57 L 18 117/50 L 91 L - Problem List & Annotations (1) COVID-19 SNOMED Code(s): 059406049 Code(s): U07.1 - COVID-19 Status: Acute Priority: High Current Visit: Yes (2) Hypoxia SNOMED Code(s): 800801201 Code(s): R09.02 - HYPOXEMIA Status: Acute Priority: High Current Visit: Yes (3) HLD (hyperlipidemia) SNOMED Code(s): 49596667 Code(s): E78.5 - HYPERLIPIDEMIA, UNSPECIFIED Status: Chronic Priority: Low Current Visit: No (4) HTN (hypertension) SNOMED Code(s): 70640189 Code(s): I10 - ESSENTIAL (PRIMARY) HYPERTENSION Status: Chronic Priority: Medium Current Visit: No Qualifiers: Hypertension type: unspecified Qualified Code(s): I10 - Essential (primary) hypertension (5) Arthritis SNOMED Code(s): 3772400 Code(s): M19.90 - UNSPECIFIED OSTEOARTHRITIS, UNSPECIFIED SITE Status: Chronic Priority: Low Current Visit: No (6) Type II diabetes mellitus SNOMED Code(s): 99698119 Code(s): E11.9 - TYPE 2 DIABETES MELLITUS WITHOUT COMPLICATIONS Status: Chronic Priority: Medium Current Visit: Yes Qualifiers: Diabetes mellitus alf insulin use: without material dispatcher use Diabetes mellitus complication status: with other specified complication Qualified Code(s): E11.69 - Type 2 diabetes mellitus with other specified complication (7) Smoker SNOMED Code(s): 11760190 Code(s): F17.200 - NICOTINE DEPENDENCE, UNSPECIFIED, UNCOMPLICATED Status: Chronic Priority: Medium Current Visit: Yes (8) Hypomagnesemia SNOMED Code(s): 160184086 Code(s): E83.42 - HYPOMAGNESEMIA Status: Acute Priority: High Current Visit: Yes (9) Hyponatremia SNOMED Code(s): 46069167 Code(s): E87.1 - HYPO-OSMOLALITY AND HYPONATREMIA Status: Resolved Prior ity: High Current Visit: Yes (10) Hypoalbuminemia SNOMED Code(s): 630501710 Code(s): E88.09 - OTH DISORDERS OF PLASMA-PROTEIN METABOLISM, NEC Status: Acute Priority: Medium Current Visit: Yes - Problem List Review Problem List Initiated/Reviewed/Updated: Yes - Assessment Assessment:: Assessment - day of admission 10/25/20 (admitted overnight 10/24/20) * 79 yo male presents to our ED on 10/24/20 with SOB * was COVID positive - swabbed Wednesday and returned positive on 10/23/19 * Symptoms for 6-7 days before arrival at ED * 50 year smoker - 1.5 packs/day; Quit 6 days before admission * Saturations of 85-86% on room air in ED * Hx/o HLD, HTN, Arthritis, Type II DM, S/P Carotid Endarterectomy * 12-Lead EKG in ED shows NSR at 77BPM with LAD, RBBB, Moderately prolonged QTc, No ST changes * Labs: * WBC 7.11-->5.10 * Hgb 16.7-->15.1 * Platelet 120-->131 * Neutrophils 62%-->74.9% * Band neutrophils 2% * INR 0.99 * APTT 32.1 * D-Dimer 0.78 * CRP 5.8 * Sodium 132-->130 * Potassium 4.3-->4.1 * Chloride 94-->96 * Anion gap 14.3-->13.1 * BUN 28-->28 * Creatinine 1.2-->1.0 * GFR 59--> Greater than 60 * Glucose 188-->280 * Magnesium 2.0 * Ferritin 1477 * Total Bilirubin 0.8-->0.5 * AST 37-->30 * ALT 59-->48 * Alk phos 78-->63 * Troponin 0.028 * CRP 5.8-->6.0 * Pro-BNP 623 * Albumin 3.3-->2.8 * Lactic Acid 1.5 * Influenza A/B negative * SARS-CoV-2 RNA positive * Vitamin D 74.4 * ABG: Rt. Radial, pH 7.44, pCO2 38.2, pO2 46.0, HCO3 25.6, O2 saturation 83.1, Base excess 2.1 * CXR shows healing left sided rib fracture, nothing acute * Given 6mg dexamethasone and started on 200mg Remdesivir in ED 10/26/2020 79-year-old male with COVID-19 and viral pneumonitis. * Patient is clearly improving but very stable. * Day 3 of dexamethasone and remdesivir. * Oxygen supplementation stable at 4 L via nasal cannula * Patient's peak of illness should be in the next couple of days. This should help determine if he is going to continue to get worse, stabilize, or improve. Plan * No significant change from above plan. 10/27/2020 79-year-old male with COVID-19 viral pneumonia. Multiple other chronic medical problems see above. Patient has had no significant change in his condition over the last 24 hours. He continues on 4 L via nasal cannula. His white count continues to be normal as well as his hemoglobin. Sodium did increase to normal at 138 which is reassuring. C-reactive protein is down to 3.9. Unfortunately, albumin continues to drop and is now at 2.5. This is very consistent for COVID-19 infection. Patient's appetite is good and he is eating 80 to 100% of his meals. He is currently on day 4 of dexamethasone and remdesivir. Blood pressures have been good ranging from 108 systolic up to 152 systolic. Glucose has been more labile ranging from 133 up to 328. Plan: Continue with current treatment of dexamethasone and remdesivir. Try to wean to 2 L before discharging home, but that may not be possible secondary to his history of smoking. 10/28/2020 * Remains on 4L via NC * Day 5 of dexamethasone and remdesivier (completes remdesivir today) * Labs remain grossly unchanged. Albumin up to 2.7 * Continues to utilize IS and acapella * Pt/OT working with patient * Continue to attempt to wean patient from O2. * Blood glucose 133-328. * Continue current treatment plan 10/29/2020 * Weaned down to 1L today * Completed Remdesivir * Day 6 of dexamethasone * Labs remain stable * Blood glucose 123-393 * Blood cultures negative after 4 days * Continues to utilize IS * Reports he feels better but still quite short of breath * Concerned about ability to get oxygen at home * No need to check labs tomorrow * Started on PO magnesium as magnesium was 1.9 * Hopeful for discharge tomorrow pending continued improvement. - Plan Plan:: COVID-19 Hypoxia * Continue dexamethasone 6mg - Day 03/13 * Completed Remdesivir 200mg * IS/Acapella * RT consultation * PT/OT * CM/SW consult * O2 as needed - goal saturations 87-94% * Lovenox 40mg daily * Supplement zinc * Supplement vitamin D * Telemetry/continuous pulse oximeter * Airborne/Contact precautions Hyponatremia, Resolved Hypoalbuminemia Hypomagnesemia * Camp[employer] Hand consultation * Start 400mg daily magnesium Type II diabetes mellitus * Hold PO medications * Blood glucose checks QID AC and Bedtime * Medium intensity sliding scale insulin * Diabetic diet Smoker * Nicotine patches * Cessation counseling * Offer nicotine patches on discharge HLD (hyperlipidemia) HTN (hypertension) Arthritis * Reconcile/review home medications * Monitor labs/vital signs Code status: Full Code PCP: Dr. Nelson DVT Prophylaxis: Lovenox Social: Patient lives with his who is also COVID-19 positive Disposition: Patient admitted for treatment of COVID-19 and hypoxia. LOS >96 HRS due to COVID-19 Treatment, continued hypoxia. <Fran Galindo - Last Filed: 10/29/20 13:27> - Patient Data Vitals - Most Recent: Last Vital Signs Temp 36.2 C 10/29/20 11:35 Pulse 59 L 10/29/20 11:35 Resp 20 10/29/20 11:35 BP 123/51 L 10/29/20 11:35 Pulse Ox 83 L 10/29/20 11:35 I&O - Last 24 Hours: Intake & Output 10/28/20 10/29/20 10/29/20 22:59 06:59 14:59 Intake Total 720 800 360 Output Total 375 975 Balance 345 -175 360 Lab Results Last 24 Hours: Laboratory Results - last 24 hr 10/28/20 10/28/20 10/28/20 Range/Units 11:02 17:40 21:14 WBC (4.23-9.07) K/mm3 RBC (4.63-6.08) M/mm3 Hgb (13.7-17.5) gm/dl Hct (40.1-51.0) % MCV (79.0-92.2) fl MCH (25.7-32.2) pg MCHC (32.2-35.5) g/dl RDW Std Deviation (35.1-43.9) fL Plt Count (163-337) K/mm3 MPV (9.4-12.3) fl Neut % (Auto) (34.0-67.9) % Lymph % (Auto) (21.8-53.1) % Hanson % (Auto) (5.3-12.2) % Eos % (Auto) (0.8-7.0) Baso % (Auto) (0.1-1.2) % Neut # (Auto) (1.78-5.38) K/mm3 Lymph # (Auto) (1.32-3.57) K/mm3 Hanson # (Auto) (0.30-0.82) K/mm3 Eos # (Auto) (0.04-0.54) K/mm3 Baso # (Auto) (0.01-0.08) K/mm3 Manual Slide Review D-Dimer, Quantitative (0.19-0.50) mg/L Sodium (136-145) mEq/L Potassium (3.5-5.1) mEq/L Chloride (98-107) mEq/L Carbon Dioxide (21-32) mEq/L Anion Gap (5-15) BUN (7-18) mg/dL Creatinine (0.7-1.3) mg/dL Est Cr Clr Drug Dosing mL/min Estimated GFR (MDRD) (>60) mL/min BUN/Creatinine Ratio (14-18) Glucose (83-115) mg/dL POC Glucose 191 H 393 H 378 H (83-110) mg/dL Calcium (8.5-10.1) mg/dL Magnesium (1.8-2.4) mg/dl Total Bilirubin (0.2-1.0) mg/dL AST (15-37) U/L ALT (16-63) U/L Alkaline Phosphatase (46-116) U/L C-Reactive Protein (<1.0) mg/dL Total Protein (6.4-8.2) g/dl Albumin (3.4-5.0) g/dl Globulin gm/dL Albumin/Globulin Ratio (1-2) 10/29/20 10/29/20 10/29/20 Range/Units 04:35 04:35 04:35 WBC 7.16 (4.23-9.07) K/mm3 RBC 4.96 (4.63-6.08) M/mm3 Hgb 15.3 (13.7-17.5) gm/dl Hct 44.9 (40.1-51.0) % MCV 90.5 (79.0-92.2) fl MCH 30.8 (25.7-32.2) pg MCHC 34.1 (32.2-35.5) g/dl RDW Std Deviation 48.2 H (35.1-43.9) fL Plt Count 222 (163-337) K/mm3 MPV 10.6 (9.4-12.3) fl Neut % (Auto) 72.6 H (34.0-67.9) % Lymph % (Auto) 16.1 L (21.8-53.1) % Hanson % (Auto) 9.9 (5.3-12.2) % Eos % (Auto) 0.1 L (0.8-7.0) Baso % (Auto) 0.3 (0.1-1.2) % Neut # (Auto) 5.20 (1.78-5.38) K/mm3 Lymph # (Auto) 1.15 L (1.32-3.57) K/mm3 Hanson # (Auto) 0.71 (0.30-0.82) K/mm3 Eos # (Auto) 0.01 L (0.04-0.54) K/mm3 Baso # (Auto) 0.02 (0.01-0.08) K/mm3 Manual Slide Review Normal smear D-Dimer, Quantitative 0.71 H (0.19-0.50) mg/L Sodium 139 (136-145) mEq/L Potassium 4.0 (3.5-5.1) mEq/L Chloride 103 (98-107) mEq/L Carbon Dioxide 28 (21-32) mEq/L Anion Gap 12.0 (5-15) BUN 26 H (7-18) mg/dL Creatinine 0.8 (0.7-1.3) mg/dL Est Cr Clr Drug Dosing 77.33 mL/min Estimated GFR (MDRD) > 60 (>60) mL/min BUN/Creatinine Ratio 32.5 H (14-18) Glucose 110 (83-115) mg/dL POC Glucose (83-110) mg/dL Calcium 8.6 (8.5-10.1) mg/dL Magnesium 1.9 (1.8-2.4) mg/dl Total Bilirubin 0.5 (0.2-1.0) mg/dL AST 34 (15-37) U/L ALT 69 H (16-63) U/L Alkaline Phosphatase 83 (46-116) U/L C-Reactive Protein 4.2 H* (<1.0) mg/dL Total Protein 5.9 L (6.4-8.2) g/dl Albumin 2.5 L (3.4-5.0) g/dl Globulin 3.4 gm/dL Albumin/Globulin Ratio 0.7 L (1-2) 10/29/20 10/29/20 Range/Units 06:03 11:05 WBC (4.23-9.07) K/mm3 RBC (4.63-6.08) M/mm3 Hgb (13.7-17.5) gm/dl Hct (40.1-51.0) % MCV (79.0-92.2) fl MCH (25.7-32.2) pg MCHC (32.2-35.5) g/dl RDW Std Deviation (35.1-43.9) fL Plt Count (163-337) K/mm3 MPV (9.4-12.3) fl Neut % (Auto) (34.0-67.9) % Lymph % (Auto) (21.8-53.1) % Hanson % (Auto) (5.3-12.2) % Eos % (Auto) (0.8-7.0) Baso % (Auto) (0.1-1.2) % Neut # (Auto) (1.78-5.38) K/mm3 Lymph # (Auto) (1.32-3.57) K/mm3 Hanson # (Auto) (0.30-0.82) K/mm3 Eos # (Auto) (0.04-0.54) K/mm3 Baso # (Auto) (0.01-0.08) K/mm3 Manual Slide Review D-Dimer, Quantitative (0.19-0.50) mg/L Sodium (136-145) mEq/L Potassium (3.5-5.1) mEq/L Chloride (98-107) mEq/L Carbon Dioxide (21-32) mEq/L Anion Gap (5-15) BUN (7-18) mg/dL Creatinine (0.7-1.3) mg/dL Est Cr Clr Drug Dosing mL/min Estimated GFR (MDRD) (>60) mL/min BUN/Creatinine Ratio (14-18) Glucose (83-115) mg/dL POC Glucose 123 H 180 H (83-110) mg/dL Calcium (8.5-10.1) mg/dL Magnesium (1.8-2.4) mg/dl Total Bilirubin (0.2-1.0) mg/dL AST (15-37) U/L ALT (16-63) U/L Alkaline Phosphatase (46-116) U/L C-Reactive Protein (<1.0) mg/dL Total Protein (6.4-8.2) g/dl Albumin (3.4-5.0) g/dl Globulin gm/dL Albumin/Globulin Ratio (1-2) Julio C Results Last 24 Hours: Microbiology 10/24/20 19:30 Aerobic Blood Culture - Preliminary Blood - Venous - Lab Draw NO GROWTH AFTER 4 DAYS Anaerobic Blood Culture - Preliminary NO GROWTH AFTER 4 DAYS 10/24/20 19:25 Aerobic Blood Culture - Preliminary Blood - Venous NO GROWTH AFTER 4 DAYS Anaerobic Blood Culture - Preliminary NO GROWTH AFTER 4 DAYS Med Orders - Current: Current Medications Acetaminophen (Tylenol) 650 mg PO Q4H PRN PRN Reason: Pain (Mild 1-3)/fever Last Admin: 10/28/20 14:21 Dose: 650 mg Documented by: Albuterol (Proventil Hfa) 0 gm INH Q4H PRN PRN Reason: Shortness of Breath Albuterol/Ipratropium (Duoneb 3.0-0.5 Mg/3 Ml) 3 ml NEB TIDRT [facility] Last Admin: 10/29/20 05:54 Dose: 3 ml Documented by: Aspirin (Halfprin) 162 mg PO DAILY [facility] Last Admin: 10/29/20 08:22 Dose: 162 mg Documented by: Carvedilol (Coreg) 3.125 mg PO BID [facility] Last Admin: 10/29/20 08:22 Dose: 3.125 mg Documented by: Cholecalciferol (Vitamin D3) 5,000 unit PO DAILY [facility] Last Admin: 10/29/20 08:22 Dose: 5,000 unit Documented by: Dexamethasone (Dexamethasone) 6 mg PO DAILY [facility] Stop: 11/02/20 09:01 Last Admin: 10/29/20 08:22 Dose: 6 mg Documented by: Enoxaparin Sodium (Lovenox) 40 mg SUBCUT DAILY [facility] Last Admin: 10/29/20 08:21 Dose: 40 mg Documented by: Famotidine (Pepcid) 20 mg PO BID [facility] Last Admin: 10/29/20 08:22 Dose: 20 mg Documented by: Furosemide (Lasix) 40 mg PO DAILY [facility] Last Admin: 10/29/20 08:22 Dose: 40 mg Documented by: Gabapentin (Neurontin) 600 mg PO BID [facility] Last Admin: 10/29/20 08:21 Dose: 600 mg Documented by: Insulin Glargine (Lantus) 10 unit SUBCUT DAILY [facility] Last Admin: 10/29/20 08:23 Dose: 10 units Documented by: Insulin Human Lispro (Humalog) 0 unit SUBCUT QIDACANDBED [facility]; Protocol Last Admin: 10/29/20 11:31 Dose: 2 units Documented by: Magnesium Oxide (Magnesium Oxide) 400 mg PO DAILY [facility] Last Admin: 10/29/20 12:52 Dose: 400 mg Documented by: Miscellaneous Information (Remove Patch) 1 ea TRDERM DAILY [facility] Last Admin: 10/29/20 08:23 Dose: Not Given Documented by: Nicotine (Habitrol) 21 mg TRDERM DAILY [facility] Last Admin: 10/29/20 08:32 Dose: Not Given Documented by: Ondansetron HCl (Zofran) 4 mg IV Q4H PRN PRN Reason: Nausea/Vomiting Oxybutynin Chloride (Oxybutynin) 5 mg PO BID [facility] Last Admin: 10/29/20 08:21 Dose: 5 mg Documented by: Oxycodone HCl (Oxycodone) 5 mg PO Q4H PRN PRN Reason: Pain (moderate 4-6) Simvastatin (Zocor) 20 mg PO DAILY [facility] Last Admin: 10/29/20 08:22 Dose: 20 mg Documented by: Sodium Chloride (Saline Flush) 10 ml FLUSH ASDIRECTED PRN PRN Reason: Keep Vein Open Last Admin: 10/24/20 18:42 Dose: 10 ml Documented by: Zinc Sulfate (Zincate) 220 mg PO DAILY [facility] Last Admin: 10/29/20 08:22 Dose: 220 mg Documented by: Discontinued Medications Albuterol/Ipratropium (Duoneb 3.0-0.5 Mg/3 Ml) 3 ml INH QID [facility] Last Admin: 10/27/20 08:31 Dose: 3 ml Documented by: Carvedilol (Coreg) 6.25 mg PO BIDMEALS [facility] Last Admin: 10/26/20 09:24 Dose: Not Given Documented by: Dexamethasone (Decadron) 6 mg IVPUSH ONETIME ONE Stop: 10/24/20 19:45 Last Admin: 10/24/20 20:11 Dose: 6 mg Documented by: Enalapril Maleate (Vasotec) 5 mg PO DAILY [facility] Last Admin: 10/25/20 11:00 Dose: 5 mg Documented by: Remdesivir 200 mg/ Sodium (Chloride) 250 mls @ 250 mls/hr IV ONETIME ONE Stop: 10/24/20 19:45 Last Admin: 10/24/20 20:13 Dose: 250 mls/hr Documented by: Remdesivir 100 mg/ Sodium (Chloride) 100 mls @ 100 mls/hr IV Q24H [facility] Stop: 10/28/20 21:59 Last Admin: 10/28/20 20:41 Dose: 100 mls/hr Documented by: Influenza Virus Vaccine (Pharmacy To Dose - Influenza Vaccine) 1 each IM ONETIME ONE Stop: 10/24/20 23:09 Influenza Virus Vaccine (Fluzone High-Dose Quad ) 240 mcg IM .ONCE ONE Stop: 10/24/20 23:31 Magnesium Hydroxide (Milk Of Magnesia) 30 ml PO ONETIME ONE Stop: 10/29/20 09:01 Last Admin: 10/29/20 08:31 Dose: Not Given Documented by: Nicotine (Habitrol) 14 mg TRDERM DAILY [facility] Oxybutynin Chloride (Oxybutynin) 5 mg PO BID [facility] Last Admin: 10/26/20 08:26 Dose: 5 mg Documented by: Sodium Chloride (Sodium Chloride) 1 gm PO BID [facility] Stop: 10/26/20 09:01 Last Admin: 10/26/20 08:28 Dose: 1 gm Documented by: Sepsis Event Note - Focused Exam Vital Signs: Vital Signs Temp Pulse Resp BP Pulse Ox Pulse Ox 10/29/20 11:35 36.2 C 59 L 20 123/51 L 83 L 10/29/20 09:32 91 L 10/29/20 08:25 36.5 C 56 L 20 114/78 87 L 10/29/20 08:22 60 114/78 10/29/20 08:00 91 L 10/29/20 05:56 91 L 10/29/20 04:36 51 L 18 149/75 H 92 L - Plan Plan:: I have seen and examined the patient independently of Amor Booke, PA-C. I have reviewed the orders and agree with the plan of care as outlined by him. I have discussed the case with him. Please see orders.
[2020-10-29] MEDS: Gabapentin 600 MG Tab PO SCH ×2 (08:21→20:04)
[2020-10-29] MEDS: Oxybutynin 5 MG Tab PO SCH ×2 (08:21→20:04)
[2020-10-29] MEDS: Enoxaparin 40 MG/0.4 ML Syringe SUBCUT SCH (08:21)
[2020-10-29] MEDS: Zinc Sulfate 220 MG Cap PO SCH (08:22)
[2020-10-29] MEDS: Famotidine 20 MG Tab PO SCH ×2 (08:22→20:04)
[2020-10-29] MEDS: Aspirin 81 MG Tab.EC PO SCH (08:22)
[2020-10-29] MEDS: Carvedilol 3.125 MG Tab PO SCH ×2 (08:22→20:05)
[2020-10-29] MEDS: Simvastatin 20 MG Tab PO SCH (08:22)
[2020-10-29] MEDS: Furosemide 40 MG Tab PO SCH (08:22)
[2020-10-29] MEDS: Dexamethasone 4 MG Tab PO SCH (08:22)
[2020-10-29] MEDS: Cholecalciferol (Vitamin D3) 5,000 UNIT Cap PO SCH (08:22)
[2020-10-29] MEDS: Magnesium Hydroxide 400 MG/5 ML Susp 30 ML Cup PO ONE ×2 (08:23→08:31)
[2020-10-29] MEDS: Insulin Glarg,Human.Rec.Analog 100 Unit/ML SUBCUT SCH (08:23)
[2020-10-29] MEDS: Nicotine 21 MG/24 Hr Patch TRDERM SCH (08:32)
[2020-10-29] MEDS: Magnesium Oxide 400 MG Tab PO SCH (12:52)
[2020-10-30] MEDS: Albuterol/Ipratropium 3.0-0.5 MG/3 ML Neb Soln NEB SCH (06:04)
[2020-10-30] MEDS: Dexamethasone 4 MG Tab PO SCH (08:53)
[2020-10-30] MEDS: Simvastatin 20 MG Tab PO SCH (08:53)
[2020-10-30] MEDS: Furosemide 40 MG Tab PO SCH (08:54)
[2020-10-30] MEDS: Insulin Glarg,Human.Rec.Analog 100 Unit/ML SUBCUT SCH (08:54)
[2020-10-30] MEDS: Aspirin 81 MG Tab.EC PO SCH (08:55)
[2020-10-30] MEDS: Famotidine 20 MG Tab PO SCH (08:55)
[2020-10-30] MEDS: Cholecalciferol (Vitamin D3) 5,000 UNIT Cap PO SCH (08:55)
[2020-10-30] MEDS: Magnesium Oxide 400 MG Tab PO SCH (08:55)
[2020-10-30] MEDS: Oxybutynin 5 MG Tab PO SCH (08:55)
[2020-10-30] MEDS: Gabapentin 600 MG Tab PO SCH (08:55)
[2020-10-30] MEDS: Zinc Sulfate 220 MG Cap PO SCH (08:55)
[2020-10-30] MEDS: Carvedilol 3.125 MG Tab PO SCH (08:58)
[2020-10-30] MEDS: Enoxaparin 40 MG/0.4 ML Syringe SUBCUT SCH (08:59)
[2020-10-30] MEDS: Nicotine 21 MG/24 Hr Patch TRDERM SCH (09:21)
--- NOTE | 2020-10-30 09:25 | PCM.DCSUM1 ---
<Amor Hathaway - Last Filed: 10/30/20 11:00> Discharge Summary - Hospital Course HPI Initial Comments: This is a 79-year-old male who presents to our ED on the evening of 10/24/2020 with shortness of breath. Patient notes that his was diagnosed as Covid positive on 10/23/2020, having been tested on 10/21/2020. Reports symptoms have been ongoing for 6 to 7 days and these include cough, congestion, anorexia, fatigue, extreme dyspnea on exertion. He is a 50 years 1.5 pack/day smoker and reports he quit 6 days prior to being seen in the emergency department before becoming ill. O2 sats during triage were noted to be 85 to 80% on room air and he looked somewhat dusky. Temperature was 99.4. Respiratory rate of 32 breaths/min blood pressure is 162/78 and pulse was 78 bpm. In the ED twelve-lead EKG was obtained showing a sinus rhythm at 77 bpm with left axis deviation and a right bundle branch block. QT was moderately prolonged at 486. No acute ST changes or ischemia noted. Labs are obtained showing no leukocytosis with a WBC of 7.11. Hemoglobin 16.4. Hematocrit 40.9. Platelets low at 120. Neutrophils elevated 62%. There is 2% bandemia. INR 0.99. APTT is 32.1. D-dimer is 0.78. CRP is 5.8. Sodium is low at 132. Potassium 4.3. Chloride 94. Carbon dioxide 28. Anion gap 14.3. BUN is high at 28. Creatinine 1.2. GFR is 59. Glucose is high at 188. Calcium 8.7. Magnesium 2.0. Ferritin is high at 1447. Total bilirubin 0.9. AST is 37, ALT 56, alkaline phosphatase 78. LDH is 289. Troponin 0 0.028. proBNP is 623. Protein 7.3. Albumin 3.3. Lactic acid is 1.5. ABGs obtained in the right radial with a pH of 7.44. PCO2 38.2. PO2 of 46.0. HCO3 of 25.6. O2 saturations are 83.1. Base excess is 2.1. This is obtained while on room air. Influenza a and B are both negative however SARS-CoV-2 RNA is positive. Patient is given a 6 mg IV push of Decadron and 20 mg of remdesivir. Chest x-ray is obtained showing a healing left-sided rib fracture and nothing acute. Placed on 2 L of oxygen. He carries a history of HLD, hypertension, arthritis, type II DM, carotid endarterectomy and tobacco use having quit 6 days prior. His PCP is Dr. Nelson. He subsequently admitted to the medical floor on telemetry for management of his COVID-19 infection and hyponatremia. Diagnosis: Stroke: No - Discharge Data Discharge Date: 10/30/20 (Admit date: 10/25/20) Discharge Disposition: Home, Self-Care 01 Condition: Good - Referral to Home Health Primary Care Physician: Riky Nelson Jr, MD - Discharge Diagnosis/Problem(s) (1) COVID-19 SNOMED Code(s): 976101728 ICD Code: U07.1 - COVID-19 Status: Acute Priority: High Current Visit: Yes (2) Hypoxia SNOMED Code(s): 752428443 ICD Code: R09.02 - HYPOXEMIA Status: Acute Priority: High Current Visit: Yes (3) HLD (hyperlipidemia) SNOMED Code(s): 87664230 ICD Code: E78.5 - HYPERLIPIDEMIA, UNSPECIFIED Status: Chronic Priority: Low Current Visit: No (4) HTN (hypertension) SNOMED Code(s): 76109056 ICD Code: I10 - ESSENTIAL (PRIMARY) HYPERTENSION Status: Chronic Priority: Medium Current Visit: No Qualifiers: Hypertension type: unspecified Qualified Code(s): I10 - Essential (primary) hypertension (5) Arthritis SNOMED Code(s): 7151398 ICD Code: M19.90 - UNSPECIFIED OSTEOARTHRITIS, UNSPECIFIED SITE Status: Chronic Priority: Low Current Visit: No (6) Type II diabetes mellitus SNOMED Code(s): 60019647 ICD Code: E11.9 - TYPE 2 DIABETES MELLITUS WITHOUT COMPLICATIONS Status: Chronic Priority: Medium Current Visit: Yes Qualifiers: Diabetes mellitus mcfp insulin use: without mcfp use Diabetes mellitus complication status: with other specified complication Qualified Code(s): E11.69 - Type 2 diabetes mellitus with other specified complication (7) Smoker SNOMED Code(s): 78000873 ICD Code: F17.200 - NICOTINE DEPENDENCE, UNSPECIFIED, UNCOMPLICATED Status: Chronic Priority: Medium Current Visit: Yes (8) Hypomagnesemia SNOMED Code(s): 720900300 ICD Code: E83.42 - HYPOMAGNESEMIA Status: Acute Priority: High Current Visit: Yes (9) Hyponatremia SNOMED Code(s): 33337042 ICD Code: E87.1 - HYPO-OSMOLALITY AND HYPONATREMIA Status: Resolved Priority: High Current Visit: Yes (10) Hypoalbuminemia SNOMED Code(s): 221365736 ICD Code: E88.09 - OTH DISORDERS OF PLASMA-PROTEIN METABOLISM, NEC Status: Acute Priority: Medium Current Visit: Yes - Patient Summary/Data Consults: Consultations 10/25/20 08:57 Consult to Case Management/Financial Risk Manager [CONS] Routine Respiratory Care Assess and Treatment [CONS] Routine 10/25/20 09:57 Consult to Occupational Therapy [OT Evaluation and Treatment] [CONS] Routine PT Evaluation and Treatment [CONS] Routine 10/25/20 10:02 Consult to Director Of Respiratory Therapy [CONS] Routine Labs Pending at D/C: None Recommended Follow-up Testing/Procedures: Follow-up with primary care provider within 5-7 days of discharge, sooner if needed. -Recommend re-check CBC, CMP, and magnesium at that visit. -Consider repeat CXR Hospital Course: This is a 79-year-old male presents to ED on 10/24/2020 with shortness of breath. Patient's was found to be Covid positive the day prior and they report they have both had symptoms for 6 to 7 days prior to ED arrival. Patient is a 1-1/2 pack a day smoker with a 50-year history of smoking. He reports he quit approximately 6 days prior to admission when he began feeling poor. Saturations were 85 to 86% on room air in the ED. Patient was found to be Covid positive and was subsequently admitted to the medical floor. He was started on vitamin D and zinc supplementation. His magnesium was low and was supplemented. This will be continued on discharge. He completed 5 days 200 mg remdesivir and 7 days of 6 mg p.o. dexamethasone while here. He was utilizing incentive spirometry and Acapella. Oxygen saturations were variable and at his worst he was requiring 5 L of oxygen via nasal cannula. This was weaned down to 2 L at rest and 4 L with activity prior to discharge. He is on several p.o. diabetic medications and these were held during his stay. He was given short and long- acting insulin. He will resume his p.o. diabetic medications at discharge. A1C was 8.9. Blood cultures have remained negative. He will be discharged on 3 more days of 6 mg p.o. dexamethasone with his first dose starting tomorrow, 10/31/2020. This will complete 10 days of treatment. He completed remdesivir while here. He will be discharged on 5 more days of 400 mg p.o. daily magnesium as he has been on the low end of normal while here. He was instructed to continue to utilize his incentive spirometry and Acapella for the next 1 to 2 weeks or until he feels better. He will be discharged on oxygen as noted. Case management was assisting the patient in locating a pulse oximeter. He will be discharged on zinc and vitamin C supplementation. Given the patient had recently stopped smoking he was offered nicotine patches while here and refused these throughout his stay. We discussed smoking cessation and resources available in the community such as [place] quits and the [facility] tobacco cessation program. He was offered nicotine patches at discharge a nd refused. He did see PT/OT who recommended home with no services. He was discharged home today. Home medications were continued however patient reports that he was started on prednisone recently due to his chronic poor respiratory status. He was instructed to hold this med while he is on dexamethasone and resume it after completion of dexamethasone. - Patient Instructions Diet: Usual Diet as Tolerated Activity: As Tolerated Driving: Do Not Drive (today or until feeling better) Showering/Bathing: May Shower Notify Provider of: Fever, Increased Pain, Nausea and/or Vomiting Other/Special Instructions: Follow-up with primary care provider within 5-7 days of discharge, sooner if needed. Resume home medications as directed. Hold your home prednisone until you complete your dexamethasone. You may resume your prednisone on 11/03/20. You were prescribed a steroid at discharge. Take this daily until complete. Continue to walk around frequently. Continue to utilize your incentive spirometer (clear blue device you inhale through) and acapella (green tube you blow through) at least a couple of times a hour while awake for 1-2 weeks or until you feel better. Wear your oxygen as directed. 2L at rest and 4L with activity. Continue to isolate until 11/08/20. You will likely be contacted by a COVID-19 case assistant after discharge from the [facility]. Follow this persons directions. We discussed your smoking status. You indicated you quite smoking prior to admission and you have no interest in starting again. You indicated you did not want cessation aids on discharges, such as nicotine patches or gum. Should you change your mind you may contact your primary care provider or any of the resources offered to you, such as [place] Quits or the [facility] tobacco cessation program. Should symptoms return or worsen contact primary care provider or return to the Emergency Department. - Discharge Plan *PRESCRIPTION DRUG MONITORING PROGRAM REVIEWED*: No *COPY OF PRESCRIPTION DRUG MONITORING REPORT IN PATIENT BLANCA: No Prescriptions/Med Rec: dexAMETHasone [Dexamethasone] 6 mg PO DAILY #3 tablet Magnesium Oxide 400 mg PO DAILY #5 tablet Cholecalciferol (Vitamin D3) [Vitamin D3] 5,000 unit PO DAILY #20 cap Zinc Sulfate [Zincate] 220 mg PO DAILY #10 cap Tobacco Cessation Medication: Prescription Refused Home Medications: Home Meds Enalapril [Vasotec] 5 mg PO DAILY 11/25/17 [History] Furosemide 40 mg PO DAILY 11/25/17 [History] Gabapentin [Neurontin] 600 mg PO BID 11/25/17 [History] Lovastatin 40 mg PO DAILY 11/25/17 [History] Pioglitazone [Actos] 45 mg PO DAILY 11/25/17 [History] carvediloL [Carvedilol] 6.25 mg PO BID 11/25/17 [History] glyBURIDE [Glyburide] 5 mg PO BID 11/25/17 [History] metFORMIN [Glucophage XR] 750 mg PO DAILY 11/25/17 [History] Acetaminophen/HYDROcodone [[place] 325-5 MG] 1 tab PO Q4H PRN #20 tablet 05/08/18 [Rx] Albuterol Sulfate [Proventil Hfa] 2 puff INH Q4HR PRN 10/25/20 [History] Albuterol/Ipratropium [Combivent Respimat] 1 puff INH QID 10/25/20 [History] Aspirin [Aspirin EC] 162 mg PO DAILY 10/25/20 [History] Oxybutynin 5 mg PO BID 10/25/20 [History] Cholecalciferol (Vitamin D3) [Vitamin D3] 5,000 unit PO DAILY #20 cap 10/30/20 [Rx] Magnesium Oxide 400 mg PO DAILY #5 tablet 10/30/20 [Rx] Zinc Sulfate [Zincate] 220 mg PO DAILY #10 cap 10/30/20 [Rx] dexAMETHasone [Dexamethasone] 6 mg PO DAILY #3 tablet 10/30/20 [Rx] Oxygen Therapy Mode: Nasal Cannula Oxygen Flow Rate (L/min): 2 (2L at rest, 4L with activity) Maintain SPO2% less than: 95 Maintain SpO2% greater than: 87 Patient Handouts: COVID-19 Frequently Asked Questions, How to Use an Incentive Spirometer, Diabetes Mellitus and Sick Day Management, 10 Things You Can Do to Manage Your COVID-19 Symptoms at Home - CDC, Type 2 Diabetes Mellitus, Self Care, Adult, Steps to Quit Smoking Referrals: Riky Nelson Jr, MD [Primary Care Provider] - 11/06/20 9:15 am (Please check in at 9:00am.) - Discharge Summary/Plan Comment DC Time >30 min.: Yes (45 mins ) - General Info Date of Service: 10/30/20 Admission Dx/Problem (Free Text: Admission Diagnosis/Problem Admission Diagnosis/Problem Hypoxia Functional Status: Reports: Pain Controlled, Tolerating Diet, Ambulating, Urinating, Incentive Spirometry, Other (Acapella ). Denies: New Symptoms - Review of Systems General: Reports: No Symptoms. Denies: Fever, Weakness, Fatigue, Malaise, Chills HEENT: Reports: No Symptoms. Denies: Headaches, Sore Throat Pulmonary: Reports: Shortness of Breath (improved ), Cough, Sputum Cardiovascular: Reports: Dyspnea on Exertion. Denies: Chest Pain, Edema Gastrointestinal: Reports: No Symptoms. Denies: Abdominal Pain, Constipation, Diarrhea, Nausea, Vomiting Genitourinary: Reports: No Symptoms. Denies: Pain Musculoskeletal: Reports: No Symptoms Skin: Reports: No Symptoms. Denies: Cyanosis Neurological: Reports: No Symptoms. Denies: Confusion, Dizziness, Headache, Numbness, Pre-Existing Deficit, Seizure, Syncope, Tingling, Difficulty Walking, Weakness, Gait Disturbance Psychiatric: Reports: No Symptoms - Patient Data Vitals - Most Recent: Last Vital Signs Temp 97.9 F 10/30/20 07:37 Pulse 61 10/30/20 08:58 Resp 16 10/30/20 07:37 BP 123/49 L 10/30/20 08:58 Pulse Ox 91 L 10/30/20 08:00 Weight - Most Recent: 76.294 kg I&O - Last 24 hours: Intake & Output 10/29/20 10/30/20 10/30/20 22:59 06:59 14:59 Intake Total 840 800 Output Total 385 850 Balance 455 -50 Lab Results - Last 24 hrs: Laboratory Results - last 24 hr 10/29/20 10/29/20 10/29/20 Range/Units 11:05 16:07 20:14 POC Glucose 180 H 339 H 386 H (83-110) mg/dL 10/30/20 Range/Units 05:52 POC Glucose 172 H (83-110) mg/dL GLEN Results - Last 24 hrs: Microbiology 10/24/20 19:30 Aerobic Blood Culture - Preliminary Blood - Venous - Lab Draw NO GROWTH AFTER 5 DAYS Anaerobic Blood Culture - Preliminary NO GROWTH AFTER 5 DAYS 10/24/20 19:25 Aerobic Blood Culture - Preliminary Blood - Venous NO GROWTH AFTER 5 DAYS Anaerobic Blood Culture - Preliminary NO GROWTH AFTER 5 DAYS Med Orders - Current: Current Medications Acetaminophen (Tylenol) 650 mg PO Q4H PRN PRN Reason: Pain (Mild 1-3)/fever Last Admin: 10/28/20 14:21 Dose: 650 mg Documented by: Albuterol (Proventil Hfa) 0 gm INH Q4H PRN PRN Reason: Shortness of Breath Albuterol/Ipratropium (Duoneb 3.0-0.5 Mg/3 Ml) 3 ml NEB TIDRT [facility] Last Admin: 10/30/20 06:04 Dose: 3 ml Documented by: Aspirin (Halfprin) 162 mg PO DAILY [facility] Last Admin: 10/30/20 08:55 Dose: 162 mg Documented by: Carvedilol (Coreg) 3.125 mg PO BID [facility] Last Admin: 10/30/20 08:58 Dose: 3.125 mg Documented by: Cholecalciferol (Vitamin D3) 5,000 unit PO DAILY [facility] Last Admin: 10/30/20 08:55 Dose: 5,000 unit Documented by: Dexamethasone (Dexamethasone) 6 mg PO DAILY [facility] Stop: 11/02/20 09:01 Last Admin: 10/30/20 08:53 Dose: 6 mg Documented by: Enoxaparin Sodium (Lovenox) 40 mg SUBCUT DAILY [facility] Last Admin: 10/30/20 08:59 Dose: 40 mg Documented by: Famotidine (Pepcid) 20 mg PO BID [facility] Last Admin: 10/30/20 08:55 Dose: 20 mg Documented by: Furosemide (Lasix) 40 mg PO DAILY [facility] Last Admin: 10/30/20 08:54 Dose: 40 mg Documented by: Gabapentin (Neurontin) 600 mg PO BID [facility] Last Admin: 10/30/20 08:55 Dose: 600 mg Documented by: Insulin Glargine (Lantus) 10 unit SUBCUT DAILY [facility] Last Admin: 10/30/20 08:54 Dose: 10 units Documented by: Insulin Human Lispro (Humalog) 0 unit SUBCUT QIDACANDBED [facility]; Protocol Last Admin: 10/30/20 07:28 Dose: 2 units Documented by: Magnesium Oxide (Magnesium Oxide) 400 mg PO DAILY [facility] Last Admin: 10/30/20 08:55 Dose: 400 mg Documented by: Miscellaneous Information (Remove Patch) 1 ea TRDERM DAILY [facility] Last Admin: 10/30/20 09:21 Dose: Not Given Documented by: Nicotine (Habitrol) 21 mg TRDERM DAILY [facility] Last Admin: 10/30/20 09:21 Dose: Not Given Documented by: Ondansetron HCl (Zofran) 4 mg IV Q4H PRN PRN Reason: Nausea/Vomiting Oxybutynin Chloride (Oxybutynin) 5 mg PO BID [facility] Last Admin: 10/30/20 08:55 Dose: 5 mg Documented by: Oxycodone HCl (Oxycodone) 5 mg PO Q4H PRN PRN Reason: Pain (moderate 4-6) Simvastatin (Zocor) 20 mg PO DAILY [facility] Last Admin: 10/30/20 08:53 Dose: 20 mg Documented by: Sodium Chloride (Saline Flush) 10 ml FLUSH ASDIRECTED PRN PRN Reason: Keep Vein Open Last Admin: 10/24/20 18:42 Dose: 10 ml Documented by: Zinc Sulfate (Zincate) 220 mg PO DAILY [facility] Last Admin: 10/30/20 08:55 Dose: 220 mg Documented by: Discontinued Medications Albuterol/Ipratropium (Duoneb 3.0-0.5 Mg/3 Ml) 3 ml INH QID [facility] Last Admin: 10/27/20 08:31 Dose: 3 ml Documented by: Carvedilol (Coreg) 6.25 mg PO BIDMEALS [facility] Last Admin: 10/26/20 09:24 Dose: Not Given Documented by: Dexamethasone (Decadron) 6 mg IVPUSH ONETIME ONE Stop: 10/24/20 19:45 Last Admin: 10/24/20 20:11 Dose: 6 mg Documented by: Enalapril Maleate (Vasotec) 5 mg PO DAILY [facility] Last Admin: 10/25/20 11:00 Dose: 5 mg Documented by: Remdesivir 200 mg/ Sodium (Chloride) 250 mls @ 250 mls/hr IV ONETIME ONE Stop: 10/24/20 19:45 Last Admin: 10/24/20 20:13 Dose: 250 mls/hr Documented by: Remdesivir 100 mg/ Sodium (Chloride) 100 mls @ 100 mls/hr IV Q24H [facility] Stop: 10/28/20 21:59 Last Admin: 10/28/20 20:41 Dose: 100 mls/hr Documented by: Influenza Virus Vaccine (Pharmacy To Dose - Influenza Vaccine) 1 each IM ONETIME ONE Stop: 10/24/20 23:09 Influenza Virus Vaccine (Fluzone High-Dose Quad ) 240 mcg IM .ONCE ONE Stop: 10/24/20 23:31 Magnesium Hydroxide (Milk Of Magnesia) 30 ml PO ONETIME ONE Stop: 10/29/20 09:01 Last Admin: 10/29/20 08:31 Dose: Not Given Documented by: Nicotine (Habitrol) 14 mg TRDERM DAILY [facility] Oxybutynin Chloride (Oxybutynin) 5 mg PO BID [facility] Last Admin: 10/26/20 08:26 Dose: 5 mg Documented by: Sodium Chloride (Sodium Chloride) 1 gm PO BID [facility] Stop: 10/26/20 09:01 Last Admin: 10/26/20 08:28 Dose: 1 gm Documented by: - Exam Quality Assessment: Reports: Supplemental Oxygen (2L ), DVT Prophylaxis. Denies: Urine Catheter General: Reports: Alert, Oriented, Cooperative HEENT: Reports: Pupils Equal, Pupils Reactive, Mucous Membr. Moist/[place] Neck: Reports: Supple, Trachea Midline Lungs: Reports: Normal Respiratory Effort, Decreased Breath Sounds, Crackles (minimal - bibasilar) Cardiovascular: Reports: Regular Rate, Regular Rhythm GI/Abdominal Exam: Normal Bowel Sounds, Soft, Non-Tender, No Distention, No Abnormal Bruit (Male) Exam: Deferred Rectal (Males) Exam: Deferred Back Exam: Reports: Normal Inspection, Full Range of Motion Extremities: Normal Inspection, Normal Range of Motion, Non-Tender, No Pedal Edema, Normal Capillary Refill Skin: Reports: Warm, Dry, Intact Neurological: Reports: No New Focal Deficit Psy/Mental Status: Reports: Alert, Normal Affect, Normal Mood <Fran Galindo - Last Filed: 10/30/20 11:50> Discharge Summary - Referral to Home Health Primary Care Physician: Riky Nelson Jr, MD - Patient Summary/Data Consults: Consultations 10/25/20 08:57 Consult to Case Management/Financial Risk Manager [CONS] Routine Respiratory Care Assess and Treatment [CONS] Routine 10/25/20 09:57 Consult to Occupational Therapy [OT Evaluation and Treatment] [CONS] Routine PT Evaluation and Treatment [CONS] Routine 10/25/20 10:02 Consult to Director Of Respiratory Therapy [CONS] Routine Hospital Course: I have seen and examined the patient independently of Amor Hathaway PA-C. Raymundo valente reviewed the orders and agree with the plan of care as outlined by him. I have discussed the case with him. Please see orders. - Patient Data Vitals - Most Recent: Last Vital Signs Temp 36.6 C 10/30/20 07:37 Pulse 61 10/30/20 08:58 Resp 16 10/30/20 07:37 BP 123/49 L 10/30/20 08:58 Pulse Ox 96 10/30/20 08:48 I&O - Last 24 hours: Intake & Output 10/29/20 10/30/20 10/30/20 22:59 06:59 14:59 Intake Total 840 800 360 Output Total 385 850 Balance 455 -50 360 Lab Results - Last 24 hrs: Laboratory Results - last 24 hr 10/29/20 10/29/20 10/30/20 Range/Units 16:07 20:14 05:52 POC Glucose 339 H 386 H 172 H (83-110) mg/dL GLEN Results - Last 24 hrs: Microbiology 10/24/20 19:30 Aerobic Blood Culture - Preliminary Blood - Venous - Lab Draw NO GROWTH AFTER 5 DAYS Anaerobic Blood Culture - Preliminary NO GROWTH AFTER 5 DAYS 10/24/20 19:25 Aerobic Blood Culture - Preliminary Blood - Venous NO GROWTH AFTER 5 DAYS Anaerobic Blood Culture - Preliminary NO GROWTH AFTER 5 DAYS Med Orders - Current: Current Medications Acetaminophen (Tylenol) 650 mg PO Q4H PRN PRN Reason: Pain (Mild 1-3)/fever Last Admin: 10/28/20 14:21 Dose: 650 mg Documented by: Albuterol (Proventil Hfa) 0 gm INH Q4H PRN PRN Reason: Shortness of Breath Albuterol/Ipratropium (Duoneb 3.0-0.5 Mg/3 Ml) 3 ml NEB TIDRT [facility] Last Admin: 10/30/20 06:04 Dose: 3 ml Documented by: Aspirin (Halfprin) 162 mg PO DAILY [facility] Last Admin: 10/30/20 08:55 Dose: 162 mg Documented by: Carvedilol (Coreg) 3.125 mg PO BID [facility] Last Admin: 10/30/20 08:58 Dose: 3.125 mg Documented by: Cholecalciferol (Vitamin D3) 5,000 unit PO DAILY [facility] Last Admin: 10/30/20 08:55 Dose: 5,000 unit Documented by: Dexamethasone (Dexamethasone) 6 mg PO DAILY [facility] Stop: 11/02/20 09:01 Last Admin: 10/30/20 08:53 Dose: 6 mg Documented by: Enoxaparin Sodium (Lovenox) 40 mg SUBCUT DAILY [facility] Last Admin: 10/30/20 08:59 Dose: 40 mg Documented by: Famotidine (Pepcid) 20 mg PO BID [facility] Last Admin: 10/30/20 08:55 Dose: 20 mg Documented by: Furosemide (Lasix) 40 mg PO DAILY [facility] Last Admin: 10/30/20 08:54 Dose: 40 mg Documented by: Gabapentin (Neurontin) 600 mg PO BID [facility] Last Admin: 10/30/20 08:55 Dose: 600 mg Documented by: Insulin Glargine (Lantus) 10 unit SUBCUT DAILY [facility] Last Admin: 10/30/20 08:54 Dose: 10 units Documented by: Insulin Human Lispro (Humalog) 0 unit SUBCUT QIDACANDBED [facility]; Protocol Last Admin: 10/30/20 07:28 Dose: 2 units Documented by: Magnesium Oxide (Magnesium Oxide) 400 mg PO DAILY [facility] Last Admin: 01/27/21 08:55 Dose: 400 mg Documented by: Miscellaneous Information (Remove Patch) 1 ea TRDERM DAILY [facility] Last Admin: 10/30/20 09:21 Dose: Not Given Documented by: Nicotine (Habitrol) 21 mg TRDERM DAILY [facility] Last Admin: 10/30/20 09:21 Dose: Not Given Documented by: Ondansetron HCl (Zofran) 4 mg IV Q4H PRN PRN Reason: Nausea/Vomiting Oxybutynin Chloride (Oxybutynin) 5 mg PO BID [facility] Last Admin: 10/30/20 08:55 Dose: 5 mg Documented by: Oxycodone HCl (Oxycodone) 5 mg PO Q4H PRN PRN Reason: Pain (moderate 4-6) Simvastatin (Zocor) 20 mg PO DAILY [facility] Last Admin: 10/30/20 08:53 Dose: 20 mg Documented by: Sodium Chloride (Saline Flush) 10 ml FLUSH ASDIRECTED PRN PRN Reason: Keep Vein Open Last Admin: 10/24/20 18:42 Dose: 10 ml Documented by: Zinc Sulfate (Zincate) 220 mg PO DAILY [facility] Last Admin: 10/30/20 08:55 Dose: 220 mg Documented by: Discontinued Medications Albuterol/Ipratropium (Duoneb 3.0-0.5 Mg/3 Ml) 3 ml INH QID [facility] Last Admin: 10/27/20 08:31 Dose: 3 ml Documented by: Carvedilol (Coreg) 6.25 mg PO BIDMEALS [facility] Last Admin: 10/26/20 09:24 Dose: Not Given Documented by: Dexamethasone (Decadron) 6 mg IVPUSH ONETIME ONE Stop: 10/24/20 19:45 Last Admin: 10/24/20 20:11 Dose: 6 mg Documented by: Enalapril Maleate (Vasotec) 5 mg PO DAILY [facility] Last Admin: 10/25/20 11:00 Dose: 5 mg Documented by: Remdesivir 200 mg/ Sodium (Chloride) 250 mls @ 250 mls/hr IV ONETIME ONE Stop: 10/24/20 19:45 Last Admin: 10/24/20 20:13 Dose: 250 mls/hr Documented by: Remdesivir 100 mg/ Sodium (Chloride) 100 mls @ 100 mls/hr IV Q24H [facility] Stop: 10/28/20 21:59 Last Admin: 10/28/20 20:41 Dose: 100 mls/hr Documented by: Influenza Virus Vaccine (Pharmacy To Dose - Influenza Vaccine) 1 each IM ONETIME ONE Stop: 10/24/20 23:09 Influenza Virus Vaccine (Fluzone High-Dose Quad ) 240 mcg IM .ONCE ONE Stop: 10/24/20 23:31 Last Admin: 10/30/20 11:23 Dose: 240 mcg Documented by: Magnesium Hydroxide (Milk Of Magnesia) 30 ml PO ONETIME ONE Stop: 10/29/20 09:01 Last Admin: 10/29/20 08:31 Dose: Not Given Documented by: Nicotine (Habitrol) 14 mg TRDERM DAILY [facility] Oxybutynin Chloride (Oxybutynin) 5 mg PO BID [facility] Last Admin: 10/26/20 08:26 Dose: 5 mg Documented by: Sodium Chloride (Sodium Chloride) 1 gm PO BID [facility] Stop: 10/26/20 09:01 Last Admin: 10/26/20 08:28 Dose: 1 gm [phone] [id number]
== END 2020-10-30 11:56 | disposition home or self-care (01) | DRG 177 ==
LOC: JD.ED 17:56 → JD.MS 21:10
PROVIDERS: ADMIT Family Medicine; ATTEND Family Medicine
PROC: 8E0ZXY6 Isolation (ICD-10-PCS; 2020-10-24)
PROC: XW033E5 Introduction of Remdesivir Anti-infective into Peripheral Vein, Percutaneous Approach, New Technology Group 5 (ICD-10-PCS; 2020-10-25)
PROC: 3E02340 Introduction of Influenza Vaccine into Muscle, Percutaneous Approach (ICD-10-PCS; principal; 2020-10-30)
DX: U07.1 COVID-19 (principal); J96.01 Acute respiratory failure with hypoxia; E87.1 Hypo-osmolality and hyponatremia; E78.5 Hyperlipidemia, unspecified; I10 Essential (primary) hypertension; Z87.891 Personal history of nicotine dependence; Z79.84 Long term (current) use of oral hypoglycemic drugs; M19.90 Unspecified osteoarthritis, unspecified site; E83.42 Hypomagnesemia; E88.09 Other disorders of plasma-protein metabolism, not elsewhere classified; F17.210 Nicotine dependence, cigarettes, uncomplicated; H54.7 Unspecified visual loss; E78.00 Pure hypercholesterolemia, unspecified; E11.9 Type 2 diabetes mellitus without complications; Z99.81 Dependence on supplemental oxygen; Z71.6 Tobacco abuse counseling; Z79.82 Long term (current) use of aspirin; Z79.52 Long term (current) use of systemic steroids; Z79.899 Other long term (current) drug therapy; Z23 Encounter for immunization
CPT/HCPCS: 0240U; 36415; 36600; 71045; 80053; 82306; 82728; 82803; 82962; 83036; 83605; 83615; 83735; 83880; 84100; 84484; 85007; 85025; 85027; 85379; 85610; 85730; 86140; 87040; 90662; 93005; 94640; 94667; 94668; 94761; 94762; 96365; 96375; 97116; 97162; 97530; 99285; 93010; 99222; 99232; 99233; 99239; 99284; A9270-GY; G0008; J1100; J1650; J1815-GY; J7050; J7620-GY; J8540

== ENCOUNTER 2022-06-18 08:29 | Inpatient (IN) | payer MEDICARE, OTHER ==
[2022-06-18] MEDS ORDERED: Sodium Chloride 0.9% 10 ML Syringe FLUSH PRN (08:53)
[2022-06-18] MEDS ORDERED: Albuterol/Ipratropium 3.0-0.5 MG/3 ML Neb Soln NEB ONE (08:55)
[2022-06-18] MEDS ORDERED: Furosemide 40 MG/4 ML VIAL IVPUSH ONE (08:55)
[2022-06-18] MEDS ORDERED: Acetaminophen 325 MG Tab PO PRN (12:01)
[2022-06-18] MEDS ORDERED: Albuterol/Ipratropium 3.0-0.5 MG/3 ML Neb Soln NEB PRN (12:01)
[2022-06-18] MEDS ORDERED: Docusate Sodium 100 MG Cap PO PRN (12:01)
[2022-06-18] MEDS ORDERED: Magnesium Oxide 400 MG Tab PO ONE (12:09)
[2022-06-18] MEDS ORDERED: REMDESIVIR 200 MG in Sodium Chloride 0.9% 250 ML IV ONE ×2 (12:09→14:00)
[2022-06-18 12:21] LABS: HEMOGLOBIN A1C 8.3 %
[2022-06-18] MEDS ORDERED: Sodium Chloride 0.9% 250 ML ONE (13:05)
[2022-06-18] MEDS: Heparin Sodium 5,000 Units/ML Vial SUBCUT SCH ×2 (13:40→20:54)
[2022-06-18] MEDS: Nicotine 14 MG/24 Hr Patch TRDERM SCH (13:40)
[2022-06-18] MEDS ORDERED: methylPREDNISolone Sodium Succinate 125 MG/2 ML SDV IV ONE (14:00)
[2022-06-18] MEDS ORDERED: Albuterol 0.083% 2.5 MG/3 ML Neb Soln NEB PRN (14:00)
[2022-06-18] MEDS: Albuterol/Ipratropium 3.0-0.5 MG/3 ML Neb Soln NEB SCH ×2 (14:42→21:03)
[2022-06-18] MEDS ORDERED: Magnesium Sulfate/Water 4 GM in Premix Bag 1 BAG IV ONE (15:00)
[2022-06-18] MEDS: Doxycycline Monohydrate 100 MG Cap PO SCH ×2 (15:10→20:54)
[2022-06-18] MEDS: Carvedilol 6.25 MG Tab PO SCH (17:08)
[2022-06-18] MEDS: Insulin Lispro 100 Unit/ML 3 ML KwikPen SUBCUT SCH ×2 (17:10→20:57)
[2022-06-18] MEDS: Gabapentin 600 MG Tab PO SCH (20:54)
[2022-06-18] MEDS: Oxybutynin 5 MG Tab PO SCH (20:54)
[2022-06-19] MEDS: Albuterol/Ipratropium 3.0-0.5 MG/3 ML Neb Soln NEB SCH ×4 (02:17→20:40)
[2022-06-19] MEDS: Heparin Sodium 5,000 Units/ML Vial SUBCUT SCH ×3 (04:26→21:23)
[2022-06-19] MEDS: Carvedilol 6.25 MG Tab PO SCH ×2 (07:23→18:08)
[2022-06-19] MEDS: Furosemide 40 MG Tab PO SCH (08:22)
[2022-06-19] MEDS: Insulin Lispro 100 Unit/ML 3 ML KwikPen SUBCUT SCH ×4 (08:23→21:21)
[2022-06-19] MEDS: Oxybutynin 5 MG Tab PO SCH ×2 (08:23→21:26)
[2022-06-19] MEDS: Doxycycline Monohydrate 100 MG Cap PO SCH ×2 (08:23→21:26)
[2022-06-19] MEDS: Gabapentin 600 MG Tab PO SCH ×2 (08:23→21:26)
[2022-06-19] MEDS: Insulin Glargine,Human Rec. Analog 100 Units/ML 3 ML Pen SUBCUT SCH (08:24)
[2022-06-19] MEDS: Nicotine 14 MG/24 Hr Patch TRDERM SCH (08:25)
[2022-06-19] MEDS: predniSONE 20 MG Tab PO SCH (12:02)
[2022-06-19] MEDS: REMDESIVIR 100 MG in Sodium Chloride 0.9% 250 ML IV SCH (15:04)
[2022-06-20] MEDS: Albuterol/Ipratropium 3.0-0.5 MG/3 ML Neb Soln NEB SCH ×4 (02:21→20:22)
[2022-06-20] MEDS: Heparin Sodium 5,000 Units/ML Vial SUBCUT SCH ×4 (03:11→19:59)
[2022-06-20] MEDS: predniSONE 20 MG Tab PO SCH (06:50)
[2022-06-20] MEDS: Carvedilol 6.25 MG Tab PO SCH ×2 (06:51→16:43)
[2022-06-20] MEDS: Nicotine 14 MG/24 Hr Patch TRDERM SCH (08:07)
[2022-06-20] MEDS: Gabapentin 600 MG Tab PO SCH ×2 (08:08→20:01)
[2022-06-20] MEDS: Doxycycline Monohydrate 100 MG Cap PO SCH ×2 (08:08→20:00)
[2022-06-20] MEDS: Furosemide 40 MG Tab PO SCH (08:08)
[2022-06-20] MEDS: Oxybutynin 5 MG Tab PO SCH ×2 (08:08→20:01)
[2022-06-20] MEDS: Insulin Lispro 100 Unit/ML 3 ML KwikPen SUBCUT SCH ×4 (08:21→20:42)
[2022-06-20] MEDS: Insulin Glargine,Human Rec. Analog 100 Units/ML 3 ML Pen SUBCUT SCH (08:22)
[2022-06-20] MEDS: REMDESIVIR 100 MG in Sodium Chloride 0.9% 250 ML IV SCH (13:28)
[2022-06-21] MEDS: Albuterol/Ipratropium 3.0-0.5 MG/3 ML Neb Soln NEB SCH ×4 (02:50→20:47)
[2022-06-21] MEDS: Heparin Sodium 5,000 Units/ML Vial SUBCUT SCH ×3 (04:39→21:20)
[2022-06-21] MEDS: Insulin Lispro 100 Unit/ML 3 ML KwikPen SUBCUT SCH ×4 (06:49→21:21)
[2022-06-21] MEDS: predniSONE 20 MG Tab PO SCH (07:45)
[2022-06-21] MEDS: Carvedilol 6.25 MG Tab PO SCH ×2 (07:45→17:18)
[2022-06-21] MEDS: Nicotine 14 MG/24 Hr Patch TRDERM SCH (08:02)
[2022-06-21] MEDS: Insulin Glargine,Human Rec. Analog 100 Units/ML 3 ML Pen SUBCUT SCH (08:02)
[2022-06-21] MEDS: Oxybutynin 5 MG Tab PO SCH ×2 (08:03→21:21)
[2022-06-21] MEDS: Furosemide 40 MG Tab PO SCH (08:03)
[2022-06-21] MEDS: Doxycycline Monohydrate 100 MG Cap PO SCH ×2 (08:03→21:21)
[2022-06-21] MEDS: Gabapentin 600 MG Tab PO SCH ×2 (08:03→21:21)
[2022-06-21] MEDS: REMDESIVIR 100 MG in Sodium Chloride 0.9% 250 ML IV SCH (13:49)
[2022-06-21] MEDS: guaiFENesin 600 MG Tab.ER PO SCH (21:23)
[2022-06-22] MEDS: Albuterol/Ipratropium 3.0-0.5 MG/3 ML Neb Soln NEB SCH ×2 (04:53→08:20)
[2022-06-22] MEDS: Heparin Sodium 5,000 Units/ML Vial SUBCUT SCH ×2 (05:00→12:54)
[2022-06-22] MEDS ORDERED: predniSONE 10 MG Tab PO SCH (07:00)
[2022-06-22] MEDS: Carvedilol 6.25 MG Tab PO SCH (07:14)
[2022-06-22] MEDS: Gabapentin 600 MG Tab PO SCH (08:24)
[2022-06-22] MEDS: Furosemide 40 MG Tab PO SCH (08:24)
[2022-06-22] MEDS: Doxycycline Monohydrate 100 MG Cap PO SCH (08:24)
[2022-06-22] MEDS: guaiFENesin 600 MG Tab.ER PO SCH (08:25)
[2022-06-22] MEDS: Oxybutynin 5 MG Tab PO SCH (08:25)
[2022-06-22] MEDS: Nicotine 14 MG/24 Hr Patch TRDERM SCH (08:25)
[2022-06-22] MEDS: Insulin Lispro 100 Unit/ML 3 ML KwikPen SUBCUT SCH ×2 (08:28→12:54)
[2022-06-22] MEDS ORDERED: Insulin Glargine,Human Rec. Analog 100 Units/ML 3 ML Pen SUBCUT SCH (09:00)
[2022-06-22] MEDS: REMDESIVIR 100 MG in Sodium Chloride 0.9% 250 ML IV SCH ×2 (12:55→14:04)
== END 2022-06-22 14:30 | disposition home or self-care (01) | DRG 177 ==
LOC: JD.ED 08:29 → JD.MS 11:50
PROVIDERS: ADMIT Internal Medicine; ATTEND Internal Medicine
PROC: XW033E5 Introduction of Remdesivir Anti-infective into Peripheral Vein, Percutaneous Approach, New Technology Group 5 (ICD-10-PCS; principal; 2022-06-18)
DX: U07.1 COVID-19 (principal); J96.01 Acute respiratory failure with hypoxia; I50.9 Heart failure, unspecified; R53.1 Weakness; R26.2 Difficulty in walking, not elsewhere classified; I21.4 Non-ST elevation (NSTEMI) myocardial infarction; E78.00 Pure hypercholesterolemia, unspecified; M19.90 Unspecified osteoarthritis, unspecified site; N39.0 Urinary tract infection, site not specified; I50.810 Right heart failure, unspecified; Z79.84 Long term (current) use of oral hypoglycemic drugs; E83.42 Hypomagnesemia; F17.210 Nicotine dependence, cigarettes, uncomplicated; E11.9 Type 2 diabetes mellitus without complications; I11.0 Hypertensive heart disease with heart failure; J44.9 Chronic obstructive pulmonary disease, unspecified; Z99.81 Dependence on supplemental oxygen; Z79.899 Other long term (current) drug therapy; Z79.52 Long term (current) use of systemic steroids
CPT/HCPCS: 36415; 36600; 71045; 80053; 82803; 83036; 83735; 83880; 84484; 85025; 85379; 86140; 93005; 94640; 96374; 99285; J1940; J3490; U0002; 82947; 93010; 94667; 94668; 94761; 94762; 97110-GP; 97116-GP; 97162-GP; 97166-GO; 97530-GP; 99223; 99233; 99239; A9270-GY; J1644; J1815; J1815-GY; J2930; J3475; J7050; J7512; J7620-GY

== ENCOUNTER 2022-09-07 14:36 | Emergency (ER) | payer MEDICARE, OTHER ==
[2022-09-07 16:42] LABS: ESTIMATED GFR 77 mL/min (>60)
[2022-09-07] MEDS ORDERED: Furosemide 40 MG/4 ML VIAL IVPUSH ONE (17:25)
== END 2022-09-07 18:35 | disposition home or self-care (01) ==
LOC: JD.ED 14:36
DX: R60.0 Localized edema (principal); E78.00 Pure hypercholesterolemia, unspecified; I10 Essential (primary) hypertension; E11.9 Type 2 diabetes mellitus without complications; F17.210 Nicotine dependence, cigarettes, uncomplicated; Z86.16 Personal history of COVID-19
CPT/HCPCS: 36415; 80053; 83880; 85025; 96374; 99283; J1940

== ENCOUNTER 2022-11-11 14:50 | Emergency (ER) | payer MEDICARE, OTHER ==
[2022-11-11] MEDS ORDERED: Furosemide 40 MG/4 ML VIAL IVPUSH ONE (15:53)
[2022-11-12] MEDS ORDERED: Furosemide 40 MG/4 ML VIAL IVPUSH ONE (15:34)
== END 2022-11-11 18:15 | disposition home or self-care (01) ==
LOC: JD.ED 14:50
DX: I11.0 Hypertensive heart disease with heart failure (principal); I50.810 Right heart failure, unspecified; J44.0 Chronic obstructive pulmonary disease with (acute) lower respiratory infection; E78.00 Pure hypercholesterolemia, unspecified; I10 Essential (primary) hypertension; E11.9 Type 2 diabetes mellitus without complications; Z79.899 Other long term (current) drug therapy; Z79.84 Long term (current) use of oral hypoglycemic drugs
CPT/HCPCS: 36415; 71045; 80053; 83880; 85025; 96374; 99285; J1940; 99284

== ENCOUNTER 2022-11-27 22:15 | Emergency (ER) | payer MEDICARE, OTHER ==
[2022-11-28 00:06] LABS: ESTIMATED GFR 68 mL/min (>60)
[2022-11-28 00:29] LABS: CORONAVIRUS COVID-19 NAA NEGATIVE (NEGATIVE)
== END 2022-11-28 01:12 | disposition home or self-care (01) ==
LOC: JD.ED 22:15
DX: J06.9 Acute upper respiratory infection, unspecified (principal); I11.0 Hypertensive heart disease with heart failure; I50.9 Heart failure, unspecified; E78.00 Pure hypercholesterolemia, unspecified; J44.9 Chronic obstructive pulmonary disease, unspecified; E11.9 Type 2 diabetes mellitus without complications; M19.90 Unspecified osteoarthritis, unspecified site; F17.210 Nicotine dependence, cigarettes, uncomplicated; R00.0 Tachycardia, unspecified; Z79.84 Long term (current) use of oral hypoglycemic drugs; Z79.899 Other long term (current) drug therapy; Z86.16 Personal history of COVID-19; Z20.822 Contact with and (suspected) exposure to COVID-19
CPT/HCPCS: 0241U; 36415; 36600; 71045; 80053; 82803; 83605; 83880; 84484; 85007; 85027; 85379; 87040; 93005; 99284; 93010

== ENCOUNTER 2022-12-30 01:27 | Inpatient (IN) | payer MEDICARE, OTHER ==
[2022-12-30 04:15] LABS: ESTIMATED GFR 31 mL/min (>60)
[2022-12-30] MEDS ORDERED: Morphine 4 MG/ML Syringe IVPUSH ONE (04:52)
[2022-12-30] MEDS ORDERED: Morphine 4 MG/ML Syringe ONE (04:55)
[2022-12-30] MEDS ORDERED: Ondansetron 4 MG/2 ML SDV IVPUSH PRN (06:54)
[2022-12-30] MEDS ORDERED: Morphine 4 MG/ML Syringe IVPUSH PRN (06:54)
[2022-12-30] MEDS ORDERED: Acetaminophen 325 MG Tab PO PRN (08:03)
[2022-12-30] MEDS ORDERED: Docusate Sodium 100 MG Cap PO PRN (08:03)
[2022-12-30] MEDS ORDERED: Sodium Chloride 0.9% 1,000 ML IV SCH (08:30)
[2022-12-30] MEDS ORDERED: Tamsulosin 0.4 MG Cap.ER PO SCH (10:00)
[2022-12-30] MEDS ORDERED: GLYCOPYRROLATE INH SCH (10:30)
[2022-12-30] MEDS ORDERED: FORMOTEROL INH SCH (10:30)
[2022-12-30] MEDS ORDERED: BUDESONIDE INH SCH (10:30)
[2022-12-30] MEDS ORDERED: Carvedilol 6.25 MG Tab PO SCH (17:00)
[2022-12-30] MEDS ORDERED: Mirtazapine 15 MG Tab PO SCH (21:00)
== END 2022-12-30 12:14 | DRG 536 ==
LOC: JD.ED 01:27 → JD.MS 04:25
PROVIDERS: ADMIT Hospitalist; ATTEND Hospitalist
DX: S72.142A Displaced intertrochanteric fracture of left femur, initial encounter for closed fracture (principal); I50.42 Chronic combined systolic (congestive) and diastolic (congestive) heart failure; I10 Essential (primary) hypertension; J96.11 Chronic respiratory failure with hypoxia; I27.20 Pulmonary hypertension, unspecified; J44.9 Chronic obstructive pulmonary disease, unspecified; E78.00 Pure hypercholesterolemia, unspecified; N40.0 Benign prostatic hyperplasia without lower urinary tract symptoms; Z66 Do not resuscitate; E78.5 Hyperlipidemia, unspecified; H54.7 Unspecified visual loss; I11.0 Hypertensive heart disease with heart failure; E11.9 Type 2 diabetes mellitus without complications; Z87.891 Personal history of nicotine dependence; Z99.81 Dependence on supplemental oxygen; Z79.899 Other long term (current) drug therapy; Z79.84 Long term (current) use of oral hypoglycemic drugs; Z86.16 Personal history of COVID-19; W18.30XA Fall on same level, unspecified, initial encounter
CPT/HCPCS: 36415; 72170; 72170-26; 80053; 82947; 83605; 85025; 87641; 99285; A9270-GY; J2270; J7030